=== PATIENT | male | born 1945 | race Caucasian/White ===

== ENCOUNTER 2019-03-24 07:34 | Outpatient (RCR) | payer MEDICARE, OTHER, SELFPAY | END 2019-04-22 00:01 | LOC: GILAB 07:34 | PROVIDERS: Family Provider Family Medicine; Visit Provider Internal Medicine | DX: Z95.811 Presence of heart assist device (principal); Z79.01 Long term (current) use of anticoagulants; I50.42 Chronic combined systolic (congestive) and diastolic (congestive) heart failure; T82.7XXD Infection and inflammatory reaction due to other cardiac and vascular devices, implants and grafts, subsequent encounter; K74.60 Unspecified cirrhosis of liver; Z87.19 Personal history of other diseases of the digestive system; D62 Acute posthemorrhagic anemia; N18.4 Chronic kidney disease, stage 4 (severe) | CPT/HCPCS: 36415 ×3; 80053 ×3; 80069; 82570; 83615 ×3; 84156; 85025 ×3; G0463 ×3 ==

== ENCOUNTER 2019-04-21 21:41 | Emergency (ER) | payer MEDICARE, OTHER, SELFPAY | END 2019-04-21 23:20 | disposition home or self-care (01) | PROVIDERS: Emergency Provider Emergency Medicine; Family Provider Family Medicine; Visit Provider Emergency Medicine | DX: K92.2 Gastrointestinal hemorrhage, unspecified (principal); I11.0 Hypertensive heart disease with heart failure; I50.9 Heart failure, unspecified; I25.2 Old myocardial infarction; E11.9 Type 2 diabetes mellitus without complications; E78.5 Hyperlipidemia, unspecified; Z86.73 Personal history of transient ischemic attack (TIA), and cerebral infarction without residual deficits; Z98.61 Coronary angioplasty status; Z95.0 Presence of cardiac pacemaker; Z88.5 Allergy status to narcotic agent | CPT/HCPCS: 36415; 80053; 85025; 85610; 99283 ==

== ENCOUNTER 2019-04-22 08:54 | Emergency (ER) | payer MEDICARE, OTHER, SELFPAY | END 2019-04-22 15:50 | disposition short-term general hospital (02) | PROVIDERS: Family Provider Family Medicine | DX: K92.2 Gastrointestinal hemorrhage, unspecified (principal); D64.89 Other specified anemias; N28.9 Disorder of kidney and ureter, unspecified; I11.0 Hypertensive heart disease with heart failure; I50.9 Heart failure, unspecified; I25.10 Atherosclerotic heart disease of native coronary artery without angina pectoris; I25.2 Old myocardial infarction; E11.9 Type 2 diabetes mellitus without complications; E78.5 Hyperlipidemia, unspecified; Z86.73 Personal history of transient ischemic attack (TIA), and cerebral infarction without residual deficits; Z98.61 Coronary angioplasty status; Z95.0 Presence of cardiac pacemaker; Z87.891 Personal history of nicotine dependence; Z79.4 Long term (current) use of insulin; Z88.5 Allergy status to narcotic agent; I48.91 Unspecified atrial fibrillation; E03.9 Hypothyroidism, unspecified ==

== ENCOUNTER → 2019-04-22 | Outpatient (CLI) | payer SELFPAY | PROVIDERS: Family Provider Family Medicine; Visit Provider Internal Medicine | DX: D64.9 Anemia, unspecified (principal); Z95.811 Presence of heart assist device | CPT/HCPCS: 36415 ==

== ENCOUNTER 2019-05-05 07:39 | Outpatient (CLI) | payer MEDICARE, OTHER, SELFPAY ==
[2019-05-05 08:22] LABS: Hematocrit 34.5 % (42.0-52.0); Hemoglobin 10.8 g/dL (11.7-16.6); Mean Corpuscular HGB Conc 31.3 g/dL (30.0-36.0); Mean Corpuscular Volume 105.5 fL (80-94); Mean Platelet Volume 9.2 fL (7.4-10.4); Platelet Count 142 10^3/cmm (130-400); Red Blood Count 3.27 10^6/uL (4.1-5.3); Red Cell Distribution Width 19.7 % (12.1-15.1); White Blood Count 5.6 10^3/uL (4.0-10.0)
[2019-05-05 08:54] LABS: Anion Gap 18.8 (5-19); Blood Urea Nitrogen 70 mg/dL (8-23); Calcium 9.5 mg/Dl (8.8-10.2); Carbon Dioxide 22 mmol/L (22-29); Chloride 96 mmol/L (98-107); Glucose 169 mg/dL (74-106); Potassium 4.8 mmol/L (3.5-5.1); Sodium 132 mmol/L (136-145)
[2019-05-05 08:56] LABS: INR 1.12 (0.8-1.2)
== END 2019-05-05 07:40 | disposition home or self-care (01) ==
PROVIDERS: Family Provider Family Medicine; PCP Family Medicine; Visit Provider Internal Medicine
DX: D62 Acute posthemorrhagic anemia (principal); N18.4 Chronic kidney disease, stage 4 (severe); Z95.811 Presence of heart assist device
CPT/HCPCS: 36415; 80048; 85027; 85610

== ENCOUNTER 2019-05-19 08:30 | Outpatient (RCR) | payer MEDICARE, OTHER, SELFPAY ==
[2019-04-30 15:58] LABS: Basophils % 0.3 %; Eosinophils # 0.1 10^3/uL (0.0-0.8); Hematocrit 29.7 % (42.0-52.0); Hemoglobin 9.5 g/dL (11.7-16.6); Lymphocytes # 0.8 10^3/uL (0.8-4.8); Lymphocytes % 12.9 %; Mean Corpuscular Hemoglobin 31.6 pg (28.0-34.0); Mean Corpuscular Volume 98.7 fL (80-94); Mean Platelet Volume 9.3 fL (7.4-10.4); Monocytes # 0.4 10^3/uL (0.2-0.9); Monocytes % 7.4 %; Neutrophils # 4.5 10^3/uL (1.8-7.7); Neutrophils % 76.9 %; Nucleated Red Blood Cells % 0.5 %; Platelet Count 117 10^3/cmm (130-400); Red Blood Count 3.01 10^6/uL (4.1-5.3); Red Cell Distribution Width 19.9 % (12.1-15.1); White Blood Count 5.9 10^3/uL (4.0-10.0)
[2019-04-30 16:14] LABS: Alanine Aminotransferase 22 U/L (0-41); Albumin Level 4.2 g/dL (3.5-5.2); Alkaline Phosphatase 108 IU/L (40-130); Aspartate Amino Transferase 34 U/L (0-40); Blood Urea Nitrogen 78 mg/dL (8-23); Calcium 8.8 mg/Dl (8.8-10.2); Carbon Dioxide 22 mmol/L (22-29); Chloride 92 mmol/L (98-107); Ferritin 165 ng/mL (30-400); Globulin 2.3 g/dL (1.3-4.6); Glucose 261 mg/dL (74-106); Iron 113 ug/dL (59-158); Percent Saturation 31.9 % (20-50); Sodium 130 mmol/L (136-145); Total Bilirubin 0.6 mg/dL (0.15-1.2); Total Iron Binding Capacity 354 mg/dL; Total Protein 6.5 g/dL (6.6-8.7); Unsaturated Iron Binding 241 ug/dL (112-347)
[2019-05-01 00:09] LABS: INR 1.11 (0.8-1.2)
--- NOTE | 2019-05-05 10:44 | ONC FU_ITS ---
Dr. Henriquez Patient Follow-Up Note Patient: Marvel Haddad Unit #: [id number]: 1945 Dicatated By: Nik Henriquez M.D.Date of Visit:Apr 30, 2019 Onc Med Follow-up/Prog Note Chief Complaint: Anemia in association with GI blood loss. History of Present Illness: This is a 73 year-old man who was had recurrent episodes of anemia in association with GI bleeding. He is referred because of suspected acquired von Willebrand's disease. He has multiple medical illnesses, the most significant being coronary artery disease with ischemic cardiomyopathy. He has congestive heart failure and he has chronic atrial fibrillation. He underwent placement of a left ventricular assistance device in October 2013. The procedure was complicated by postoperative infection and subsequently by seizures and stroke, but he ultimately recovered, and his overall cardiac status has basically remained stable. His clinical course, though, has been complicated by recurrent episodes of GI bleeding. He has required transfusion on multiple occasions. This year alone he was transfused twice during the month of June, on again the 15 of November. On 11/30/2018 he was admitted to the hospital with bright red and dark rectal bleeding. His initial CBC showed hemoglobin 7.6 g with white blood cell count 5500 and platelet count 131,000. The red cell indices were slightly macrocytic. The following morning the hemoglobin was down to 7.4 g and the platelet count had decreased to 99,000. He was transfused a total of 4 units of PRBC. He was discharged with a hemoglobin of 8.9 g. His coagulation profile showed slightly prolonged pro time at 16.3 seconds with PTT in the upper normal range at 35.70 seconds. During subsequent follow-up there was gradual improvement in the anemia with his repeat CBC on 12/30/2018 showing hemoglobin up to 11.3 g with white blood cell count 5500 and platelet count 159,000. Von Willebrand disease screening studies were drawn during the hospitalization and they were normal with a factor VIII activity of 157%, von Willebrand factor antigen 243%, and ristocetin cofactor 133%. His serum iron studies on 01/13/2019 showed normal transferrin saturation at 23.8%. He then continued to have blood counts monitored every 2 weeks, and up until 04/07/2019 his hemoglobin had remained adequate and the range of 11-12 g. However, as of 04/21/2019 he had developed recurrence of GI bleeding. His hemoglobin at that time was down just slightly at 10.4 g, but it then further declined to 7.7 g, at which point he was admitted to [facility]. As his previous evaluations there showed no specific source for the bleeding, he was managed conservatively just given multiple transfusions until the bleeding stopped. He was discharged yesterday. He is seen for a scheduled visit. He still feels weak following his hospitalization, and he has very limited activity. His ECOG score is 3. His appetite has been okay. He has no fever or night sweats. He has shortness of breath with activity, and he occasionally wakes up at night short of breath, severe enough that he has to get up. He says he coughs up mucus in the mornings. He occasionally has discomfort in his chest. He continues to have nausea at times. He currently is not complaining of acid reflux. His bowels initially were dark and tarry. They had then become red colored, but they're now back to being greenish. He has no complaints. He does report having soreness in his joints, and he also has some pain in his neck and back. He has been prone to having vertigo. He occasionally has numbness/tingling in his feet. Medications: Allopurinol 1 Tablet (of 150 mg) Oral daily, Amoxicillin 1 Tablet (of 500 mg) Oral b.i.d., Bumetanide 4 Tablet (of 2 mg) Oral b.i.d., Cholecalciferol 2 Tablet (of 1000 Units) Capsule Oral daily, Crestor 1 Tablet (of 10 mg) Oral daily, Docusate Sodium 1 Capsule (of 100 mg) Oral daily, Ferrous Gluconate 1 Tablet (of 324 (37.5 fe) mg) Oral b.i.d., Folic Acid 2 Tablet (of 1 mg) Oral daily, Isosorbide Mononitrate ER 1 Tablet (of 60 mg) Tablet SR 24 HR Oral daily, Isosorbide Mononitrate ER 1 Tablet (of 30 mg) Tablet SR 24 HR Oral daily, Lantus (100 Units/mL) Subcutaneous Take as Directed, levETIRAcetam 1 Tablet (of 500 mg) Oral b.i.d., Levothyroxine Sodium 1 Tablet (of 112 mcg) Oral daily, Magnesium 2 Tablet (of 400 mg) Oral b.i.d., Metoprolol Succinate ER 1 Tablet (of 25 mg) Tablet SR 24 HR Oral daily, MiraLax Pack Oral b.i.d., Nitrostat 1 Tablet (of 0.4 mg) Tablet, sublingual Sublingual PRN, NovoLOG (100 Units/mL) Subcutaneous Take as Directed, Potassium Chloride ER 1 Tablet (of 20 meq) Tablet, controlled release Oral daily PRN, Spironolactone 1 Tablet (of 50 mg) Oral daily, Sulfamethoxazole-Trimethoprim 1 Tablet (of 800-160 mg) Oral daily Allergies: clindamycin, Cyclobenzaprine HCl, dobutamine, Gabapentin, Gemfibrozil, HYDROcodone, morphine , niaspan, predniSONE, protonix, tricor, and zeroxolyn. Review of Systems: Constitutional - He is feeling weak, and his activity is very limited. Appetite is OK. His weight appears stable. No fever or night sweats. ECOG score is 3, ENMT - No sinus congestion/drainage. No mouth sores. No sore throat or difficulty swallowing, Hematologic/Lymphatic - He bruises easily. He has nose bleeds, Respiratory - He has shortness of breath with activity. He occasionally wakes up at night short of breath, severe enough that he has to get up. No cough. No pleuritic pain or hemoptysis. He is on Bipap at night, Cardiovascular - He occasionally has discomfort in his chest. No palpitations, Gastrointestinal - He has occasional nausea. No heartburn or acid reflux. He has constipationcome but his bowels lately have been pretty good. With his recent bleeding episode his stool initially was dark and tarry, but it then became reddish. His stools now are greenish colored, Genitourinary (M) - No dysuria or hematuria. He has urinary frequency and nocturia. No urgency or incontinence, Musculoskeletal - He has soreness in his joints. He also has some pain in his neck and in his lower back, Integumentary - No skin complications, Neurologic - No headache. He has vertigo. He has occasional numbness and tingling in his feet, Psychiatric - No anxiety or depression. No insomnia. Vital Signs: Performed on Apr 30, 2019 15:58 Height - 67.00 in Weight - 206.4 lbs BSA - 2.05 sq.m BMI - 32.33 (HIGH) Temperature - 96.5 F (LOW) Pulse - 88 /min Respiration - 22 /min BP - 99/61 mm(hg) O2 Sat - 93 % (LOW) Pain - 0 Physical Examination: Constitutional - He appears generally weak, Eyes - Sclerae nonicteric. Conjunctivae clear, ENMT - No lesions noted in the oral cavity, Hematologic/Lymphatic - No cervical, clavicular, or axillary adenopathy, Respiratory - Lungs sound clear with good air movement bilaterally, Cardiovascular - Heart rhythm is irregular. There is extraneous noise associated with the left ventricular assistance device. He also appears to have a diastolic murmur, Abdomen - Distended. Liver and spleen are not enlarged. There is no abdominal mass or ascites noted and there is no inguinal adenopathy, Extremities - Slight edema. There is extensive purpura on both arms, Neurologic - No focal neurologic deficits noted. Lab/Imaging: Test performed on Apr 30, 2019 14:39 Ferritin 165 ng/mL % Iron Saturation 31.9 % Glucose 261 mg/dL BUN 78 mg/dL Iron, Total 113 mcg/dL Creatinine 3.3 mg/dL TIBC 354 mcg/dL Cr Clearance (Est) 26.40 mL/min Sodium 130 mmol/L Potassium 5.0 mmol/L Chloride 92 mmol/L CO2 22 mmol/L Calcium 8.8 mg/dL Protein, Total 6.5 g/dL Albumin 4.2 g/dL Globulin 2.3 g/dL Bilirubin, Total 0.6 mg/dL Alkaline Phosphatase 108 IU/L AST (SGOT) 34 IU/L ALT (SGPT) 22 IU/L WBC 5.9 10^9/L RBC 3.01 10^12/L HGB 9.5 g/dL HCT 29.7 % MCV 98.7 fl MCH 31.6 pg MCHC 32.0 g/dL RDW 19.9 % Platelet Count 117 10^9/L MPV 9.3 fL Neutrophils (Gran) 4.5 10^9/L Lymphocytes 0.8 10^9/L Monocytes 0.4 10^9/L Eosinophils 0.1 10^9/L Basophils 0.0 10^9/L Manual Lymphocytes 12.9 % Manual Monocytes 7.4 % Manual Eosinophils 1.0 % Manual Basophils 0.3 % NRBCs 0.0 /100 WBC Impression: 1. Patient with recurrent episodes of anemia in association with GI bleeding. He has required transfusion on multiple occasions. His laboratory studies had not shown any evidence for associated iron deficiency. 2. His history was suggestive of a bleeding diathesis, but there was no laboratory evidence of von Willebrand's disease or other coagulopathy. 3. He has ischemic cardiomyopathy and congestive heart failure, and he has a left ventricular assistance device in place. His other medical illnesses include: 4. Hypertension. 5. Dyslipidemia. 6. Type II diabetes with peripheral neuropathy. 7. Chronic kidney disease, stage IV. 8. Coronary artery disease with previous myocardial infarction. 9. Chronic atrial fibrillation. 10. GERD. 11. Hypothyroidism. 12. Gout. 13. History of stroke and seizures following placement of the left ventricular assistance device in October 2013. On 04/22/2019 he again required admission to the hospital for an episode of acute GI bleeding. He required multiple transfusions, but the bleeding resolved with conservative management. This is presumed to be due to angiodysplasia, though a specific source was not identified. Plan: He will continue to have blood counts monitored every 2 weeks and he will be transfused as needed. I am really not aware of any other treatment options which may be available, but I will look into it. Signed By: Nik Henriquez M.D. <<Signature on File>>
[2019-05-19 09:00] LABS: Basophils % 0.3 %; Eosinophils # 0.1 10^3/uL (0.0-0.8); Eosinophils % 1.5 %; Hemoglobin 10.1 g/dL (11.7-16.6); Lymphocytes # 0.7 10^3/uL (0.8-4.8); Lymphocytes % 16.7 %; Mean Corpuscular HGB Conc 31.6 g/dL (30.0-36.0); Mean Corpuscular Hemoglobin 32.5 pg (28.0-34.0); Mean Corpuscular Volume 102.9 fL (80-94); Mean Platelet Volume 8.4 fL (7.4-10.4); Monocytes # 0.2 10^3/uL (0.2-0.9); Monocytes % 6.2 %; Neutrophils # 2.9 10^3/uL (1.8-7.7); Neutrophils % 74.5 %; Nucleated Red Blood Cells % 0 %; Platelet Count 117 10^3/cmm (130-400); Red Blood Count 3.11 10^6/uL (4.1-5.3); Red Cell Distribution Width 18.1 % (12.1-15.1); White Blood Count 3.9 10^3/uL (4.0-10.0)
[2019-05-19 09:08] LABS: INR 1.13 (0.8-1.2)
[2019-05-19 09:15] LABS: Alanine Aminotransferase 18 U/L (0-41); Albumin Level 4.5 g/dL (3.5-5.2); Alkaline Phosphatase 96 IU/L (40-130); Aspartate Amino Transferase 22 U/L (0-40); Blood Urea Nitrogen 81 mg/dL (8-23); Calcium 9.5 mg/dL (8.5-10.5); Carbon Dioxide 26 mmol/L (22-29); Chloride 94 mmol/L (98-107); Globulin 3.1 g/dL (1.3-4.6); Glucose 169 mg/dL (74-106); Lactate Dehydrogenase 238 U/L (135-225); Sodium 136 mmol/L (136-145); Total Bilirubin 0.5 mg/dL (0.15-1.2); Total Protein 7.6 g/dL (6.6-8.7)
== END 2019-05-23 23:59 | disposition home or self-care (01) ==
LOC: ONCMED 08:30
PROVIDERS: Internal Medicine Medical Oncology; Family Provider Family Medicine; PCP Family Medicine; Visit Provider Internal Medicine
DX: D62 Acute posthemorrhagic anemia (principal); I25.10 Atherosclerotic heart disease of native coronary artery without angina pectoris; I25.5 Ischemic cardiomyopathy; I50.9 Heart failure, unspecified; I48.20 Chronic atrial fibrillation, unspecified; E78.5 Hyperlipidemia, unspecified; E11.42 Type 2 diabetes mellitus with diabetic polyneuropathy; E11.22 Type 2 diabetes mellitus with diabetic chronic kidney disease; I13.0 Hypertensive heart and chronic kidney disease with heart failure and stage 1 through stage 4 chronic kidney disease, or unspecified chronic kidney disease; N18.4 Chronic kidney disease, stage 4 (severe); I25.2 Old myocardial infarction; K21.9 Gastro-esophageal reflux disease without esophagitis; E03.9 Hypothyroidism, unspecified; M10.9 Gout, unspecified; Z79.4 Long term (current) use of insulin; Z86.73 Personal history of transient ischemic attack (TIA), and cerebral infarction without residual deficits
CPT/HCPCS: 80053; 82728; 83540; 83550; 83615; 85025; 85610; 85730; 99214

== ENCOUNTER 2019-05-30 09:25 | Outpatient (CLI) | payer MEDICARE, OTHER, SELFPAY ==
[2019-05-30 09:58] LABS: Basophils % 0.2 %; Eosinophils % 0.8 %; Hematocrit 29.2 % (42.0-52.0); Hemoglobin 9.4 g/dL (11.7-16.6); Lymphocytes # 0.6 10^3/uL (0.8-4.8); Lymphocytes % 11.1 %; Mean Corpuscular HGB Conc 32.2 g/dL (30.0-36.0); Mean Corpuscular Hemoglobin 33.1 pg (28.0-34.0); Mean Corpuscular Volume 102.8 fL (80-94); Monocytes # 0.3 10^3/uL (0.2-0.9); Monocytes % 6.2 %; Neutrophils # 4.1 10^3/uL (1.8-7.7); Neutrophils % 79.9 %; Nucleated Red Blood Cells % 0.6 %; Platelet Count 112 10^3/cmm (130-400); Red Blood Count 2.84 10^6/uL (4.1-5.3); Red Cell Distribution Width 17.5 % (12.1-15.1); White Blood Count 5.1 10^3/uL (4.0-10.0)
[2019-05-30 10:08] LABS: INR 1.23 (0.8-1.2)
[2019-05-30 10:15] LABS: Alanine Aminotransferase 18 U/L (0-41); Albumin Level 3.7 g/dL (3.5-5.2); Alkaline Phosphatase 113 IU/L (40-130); Anion Gap 21.2 (5-19); Aspartate Amino Transferase 24 U/L (0-40); Calcium 8.1 mg/dL (8.5-10.5); Carbon Dioxide 17 mmol/L (22-29); Chloride 93 mmol/L (98-107); Globulin 2.6 g/dL (1.3-4.6); Glucose 266 mg/dL (65-115); Lactate Dehydrogenase 231 U/L (135-225); Potassium 4.2 mmol/L (3.5-5.1); Sodium 127 mmol/L (136-145); Total Bilirubin 0.5 mg/dL (0.15-1.2); Total Protein 6.3 g/dL (6.6-8.7)
[2019-05-30 10:38] LABS: Blood Urea Nitrogen 94 mg/dL (8-23)
== END 2019-05-30 09:26 | disposition home or self-care (01) ==
LOC: LAB 09:31
PROVIDERS: Family Provider Family Medicine; PCP Family Medicine; Visit Provider Internal Medicine
DX: Z95.811 Presence of heart assist device (principal); I25.5 Ischemic cardiomyopathy; I50.22 Chronic systolic (congestive) heart failure; I48.0 Paroxysmal atrial fibrillation
CPT/HCPCS: 36415; 80053; 83615; 85025; 85610

== ENCOUNTER 2019-06-02 08:00 | Outpatient (CLI) | payer MEDICARE, OTHER, SELFPAY ==
[2019-06-02 09:39] LABS: Basophils % 0.4 %; Eosinophils # 0.1 10^3/uL (0.0-0.8); Eosinophils % 1.3 %; Hematocrit 26.8 % (42.0-52.0); Hemoglobin 8.5 g/dL (11.7-16.6); Lymphocytes # 0.8 10^3/uL (0.8-4.8); Lymphocytes % 13.6 %; Mean Corpuscular HGB Conc 31.7 g/dL (30.0-36.0); Mean Corpuscular Hemoglobin 34.6 pg (28.0-34.0); Mean Corpuscular Volume 108.9 fL (80-94); Monocytes # 0.4 10^3/uL (0.2-0.9); Monocytes % 6.5 %; Neutrophils # 4.1 10^3/uL (1.8-7.7); Neutrophils % 73.5 %; Nucleated Red Blood Cells # 0.1 /100WBC; Nucleated Red Blood Cells % 1.3 %; Platelet Count 137 10^3/cmm (130-400); Red Blood Count 2.46 10^6/uL (4.1-5.3); Red Cell Distribution Width 17.9 % (12.1-15.1); White Blood Count 5.5 10^3/uL (4.0-10.0)
[2019-06-02 10:10] LABS: Alanine Aminotransferase 22 U/L (0-41); Albumin Level 3.9 g/dL (3.5-5.2); Alkaline Phosphatase 105 IU/L (40-130); Anion Gap 23.2 (5-19); Aspartate Amino Transferase 27 U/L (0-40); Calcium 8.7 mg/dL (8.5-10.5); Carbon Dioxide 19 mmol/L (22-29); Chloride 93 mmol/L (98-107); Globulin 2.4 g/dL (1.3-4.6); Glucose 221 mg/dL (65-115); Lactate Dehydrogenase 228 U/L (135-225); Potassium 5.2 mmol/L (3.5-5.1); Sodium 130 mmol/L (136-145); Total Bilirubin 0.4 mg/dL (0.15-1.2); Total Protein 6.3 g/dL (6.6-8.7)
[2019-06-02 11:01] LABS: Blood Urea Nitrogen 85 mg/dL (8-23)
[2019-06-04] VITALS (7 sets, daily range): BP systolic 0; BP diastolic 0; PULSE 68–70; RESP 18; TEMP 36.3–37; O2SAT 96–100
--- NOTE | 2019-06-04 16:49 | PC.NURSE ---
Unable to get B/P due to the maint mechanic pump and perfusion to extremities. Patient admits to not able to get B/P unless you have a doppler. I did try manual B/P,automatic B/P monitors. Patients denies need for the tylenol ,benadryl and lasix in between units since he doesn't use it for several months past and has had numerous infusions.
--- NOTE | 2019-06-04 17:09 | PC.NURSE ---
Patient did no have a obtainable B/P due to his mechanical heart device with poor peripheral perfusion. Manual B/p cuff and automatic machine and monitor.
== END 2019-06-02 09:00 | disposition home or self-care (01) ==
LOC: LAB 12-09 12:40
PROVIDERS: PCP Family Medicine; Visit Provider Internal Medicine
DX: Z95.811 Presence of heart assist device (principal); I25.5 Ischemic cardiomyopathy; I50.22 Chronic systolic (congestive) heart failure; I48.0 Paroxysmal atrial fibrillation
CPT/HCPCS: 80053; 83615; 85025; 85610; 86850; 86900

== ENCOUNTER 2019-06-16 08:19 | Outpatient (RCR) | payer MEDICARE, OTHER, SELFPAY ==
[2019-06-04 11:39] LABS: Basophils % 0.3 %; Eosinophils # 0.1 10^3/uL (0.0-0.8); Eosinophils % 0.8 %; Hematocrit 26.5 % (42.0-52.0); Hemoglobin 8.4 g/dL (11.7-16.6); Lymphocytes # 0.9 10^3/uL (0.8-4.8); Lymphocytes % 14.6 %; Mean Corpuscular HGB Conc 31.7 g/dL (30.0-36.0); Mean Corpuscular Hemoglobin 34.4 pg (28.0-34.0); Mean Corpuscular Volume 108.6 fL (80-94); Monocytes # 0.5 10^3/uL (0.2-0.9); Neutrophils # 4.7 10^3/uL (1.8-7.7); Neutrophils % 73.8 %; Nucleated Red Blood Cells # 0.1 /100WBC; Nucleated Red Blood Cells % 1.3 %; Platelet Count 145 10^3/cmm (130-400); Red Blood Count 2.44 10^6/uL (4.1-5.3); Red Cell Distribution Width 18.2 % (12.1-15.1); White Blood Count 6.4 10^3/uL (4.0-10.0)
[2019-06-04] MEDS: sodium chloride 0.9% 250 ML 999 ML IV (12:10)
[2019-06-09 10:18] LABS: Basophils % 0.2 %; Eosinophils # 0.1 10^3/uL (0.0-0.8); Eosinophils % 1.6 %; Hematocrit 31.9 % (42.0-52.0); Hemoglobin 10.1 g/dL (11.7-16.6); Lymphocytes # 0.7 10^3/uL (0.8-4.8); Lymphocytes % 12.3 %; Mean Corpuscular HGB Conc 31.7 g/dL (30.0-36.0); Mean Corpuscular Hemoglobin 33.6 pg (28.0-34.0); Mean Platelet Volume 9.2 fL (7.4-10.4); Monocytes # 0.4 10^3/uL (0.2-0.9); Neutrophils # 4.4 10^3/uL (1.8-7.7); Neutrophils % 77.1 %; Nucleated Red Blood Cells % 0 %; Platelet Count 108 10^3/cmm (130-400); Red Blood Count 3.01 10^6/uL (4.1-5.3); Red Cell Distribution Width 19.5 % (12.1-15.1); White Blood Count 5.7 10^3/uL (4.0-10.0)
[2019-06-09 10:24] LABS: INR 1.13 (0.8-1.2)
[2019-06-09 10:29] LABS: Alanine Aminotransferase 18 U/L (0-41); Albumin Level 4.1 g/dL (3.5-5.2); Alkaline Phosphatase 98 IU/L (40-130); Anion Gap 19.1 (5-19); Aspartate Amino Transferase 21 U/L (0-40); Calcium 8.9 mg/dL (8.5-10.5); Carbon Dioxide 23 mmol/L (22-29); Chloride 95 mmol/L (98-107); Globulin 2.8 g/dL (1.3-4.6); Glucose 163 mg/dL (65-115); Lactate Dehydrogenase 238 U/L (135-225); Potassium 4.1 mmol/L (3.5-5.1); Sodium 133 mmol/L (136-145); Total Bilirubin 0.3 mg/dL (0.15-1.2); Total Protein 6.9 g/dL (6.6-8.7)
[2019-06-09 10:34] LABS: Blood Urea Nitrogen 87 mg/dL (8-23)
[2019-06-16 09:03] LABS: Basophils % 0.2 %; Eosinophils # 0.1 10^3/uL (0.0-0.8); Eosinophils % 2.2 %; Hematocrit 33.1 % (42.0-52.0); Hemoglobin 10.4 g/dL (11.7-16.6); Lymphocytes # 0.6 10^3/uL (0.8-4.8); Lymphocytes % 14.2 %; Mean Corpuscular HGB Conc 31.4 g/dL (30.0-36.0); Mean Corpuscular Hemoglobin 32.4 pg (28.0-34.0); Mean Corpuscular Volume 103.1 fL (80-94); Mean Platelet Volume 9.4 fL (7.4-10.4); Monocytes # 0.4 10^3/uL (0.2-0.9); Monocytes % 8.4 %; Neutrophils # 3.3 10^3/uL (1.8-7.7); Neutrophils % 74.3 %; Nucleated Red Blood Cells % 0 %; Platelet Count 101 10^3/cmm (130-400); Red Blood Count 3.21 10^6/uL (4.1-5.3); Red Cell Distribution Width 17.7 % (12.1-15.1); White Blood Count 4.5 10^3/uL (4.0-10.0)
[2019-06-16 09:23] LABS: INR 1.21 (0.8-1.2)
[2019-06-16 09:35] LABS: Alanine Aminotransferase 14 U/L (0-41); Albumin Level 4.3 g/dL (3.5-5.2); Alkaline Phosphatase 100 IU/L (40-130); Anion Gap 20.4 (5-19); Aspartate Amino Transferase 21 U/L (0-40); Calcium 9.8 mg/dL (8.5-10.5); Carbon Dioxide 25 mmol/L (22-29); Chloride 93 mmol/L (98-107); Globulin 2.9 g/dL (1.3-4.6); Glucose 184 mg/dL (65-115); Lactate Dehydrogenase 249 U/L (135-225); Potassium 4.4 mmol/L (3.5-5.1); Sodium 134 mmol/L (136-145); Total Bilirubin 0.4 mg/dL (0.15-1.2); Total Protein 7.2 g/dL (6.6-8.7)
[2019-06-16 09:48] LABS: Blood Urea Nitrogen 87 mg/dL (8-23)
== END 2019-06-21 23:59 | disposition home or self-care (01) ==
LOC: ONCMED 08:19
PROVIDERS: Internal Medicine Medical Oncology; Family Provider Family Medicine; PCP Family Medicine; Visit Provider Internal Medicine
DX: D62 Acute posthemorrhagic anemia (principal)
CPT/HCPCS: 80053; 83615; 85025; 85610; J7050; P9016

== ENCOUNTER 2019-06-30 08:46 | Outpatient (CLI) | payer MEDICARE, OTHER, SELFPAY ==
[2019-06-30 09:27] LABS: Basophils % 0.2 %; Eosinophils % 0.9 %; Hematocrit 36.1 % (42.0-52.0); Hemoglobin 11.3 g/dL (11.7-16.6); Lymphocytes # 0.6 10^3/uL (0.8-4.8); Lymphocytes % 14.2 %; Mean Corpuscular HGB Conc 31.3 g/dL (30.0-36.0); Mean Corpuscular Volume 105.6 fL (80-94); Mean Platelet Volume 9.1 fL (7.4-10.4); Monocytes # 0.3 10^3/uL (0.2-0.9); Monocytes % 6.3 %; Neutrophils # 3.3 10^3/uL (1.8-7.7); Neutrophils % 77.2 %; Nucleated Red Blood Cells % 0 %; Platelet Count 118 10^3/cmm (130-400); Red Blood Count 3.42 10^6/uL (4.1-5.3); Red Cell Distribution Width 16.5 % (12.1-15.1); White Blood Count 4.3 10^3/uL (4.0-10.0)
[2019-06-30 09:33] LABS: INR 1.14 (0.8-1.2)
[2019-06-30 09:37] LABS: Alanine Aminotransferase 14 U/L (0-41); Albumin Level 4.1 g/dL (3.5-5.2); Alkaline Phosphatase 86 IU/L (40-130); Anion Gap 20.4 (5-19); Aspartate Amino Transferase 24 U/L (0-40); Blood Urea Nitrogen 73 mg/dL (8-23); Calcium 9.3 mg/dL (8.5-10.5); Carbon Dioxide 23 mmol/L (22-29); Chloride 93 mmol/L (98-107); Globulin 3.5 g/dL (1.3-4.6); Glucose 257 mg/dL (65-115); Lactate Dehydrogenase 242 U/L (135-225); Osmolality Calculated 282 mOsm/kg (285-295); Potassium 4.4 mmol/L (3.5-5.1); Sodium 132 mmol/L (136-145); Total Bilirubin 0.5 mg/dL (0.15-1.2); Total Protein 7.6 g/dL (6.6-8.7)
== END 2019-06-30 08:47 | disposition home or self-care (01) ==
LOC: LAB 08:55
PROVIDERS: Family Provider Family Medicine; PCP Family Medicine; Visit Provider Internal Medicine
DX: Z95.811 Presence of heart assist device (principal); I25.5 Ischemic cardiomyopathy; I50.22 Chronic systolic (congestive) heart failure; I48.0 Paroxysmal atrial fibrillation; Z79.01 Long term (current) use of anticoagulants
CPT/HCPCS: 80053; 83615; 85025; 85610

== ENCOUNTER 2019-07-14 11:19 | Outpatient (CLI) | payer MEDICARE, OTHER, SELFPAY ==
[2019-07-14 11:39] LABS: Basophils % 0.4 %; Eosinophils # 0.1 10^3/uL (0.0-0.8); Eosinophils % 1.5 %; Hematocrit 34.5 % (42.0-52.0); Hemoglobin 11.1 g/dL (11.7-16.6); Lymphocytes # 0.8 10^3/uL (0.8-4.8); Lymphocytes % 14.7 %; Mean Corpuscular HGB Conc 32.2 g/dL (30.0-36.0); Mean Corpuscular Hemoglobin 33.3 pg (28.0-34.0); Mean Corpuscular Volume 103.6 fL (80-94); Monocytes # 0.3 10^3/uL (0.2-0.9); Monocytes % 6.2 %; Neutrophils % 76.3 %; Nucleated Red Blood Cells % 0 %; Platelet Count 106 10^3/cmm (130-400); Red Blood Count 3.33 10^6/uL (4.1-5.3); White Blood Count 5.3 10^3/uL (4.0-10.0)
[2019-07-14 11:51] LABS: INR 1.24 (0.8-1.2)
[2019-07-14 11:59] LABS: Alanine Aminotransferase 22 U/L (0-41); Albumin Level 4.3 g/dL (3.5-5.2); Alkaline Phosphatase 96 IU/L (40-130); Anion Gap 15.9 (5-19); Aspartate Amino Transferase 25 U/L (0-40); Calcium 8.9 mg/dL (8.5-10.5); Carbon Dioxide 27 mmol/L (22-29); Chloride 93 mmol/L (98-107); Globulin 3.2 g/dL (1.3-4.6); Glucose 297 mg/dL (65-115); Lactate Dehydrogenase 229 U/L (135-225); Osmolality Calculated 285 mOsm/kg (285-295); Potassium 3.9 mmol/L (3.5-5.1); Sodium 132 mmol/L (136-145); Total Bilirubin 0.4 mg/dL (0.15-1.2); Total Protein 7.5 g/dL (6.6-8.7)
[2019-07-14 12:06] LABS: Blood Urea Nitrogen 84 mg/dL (8-23)
== END 2019-07-14 11:20 | disposition home or self-care (01) ==
LOC: ONCMED 07-16 14:06
PROVIDERS: Family Provider Family Medicine; PCP Family Medicine; Visit Provider Internal Medicine
DX: D62 Acute posthemorrhagic anemia (principal)
CPT/HCPCS: 80053; 83615; 85025; 85610

== ENCOUNTER 2019-08-11 09:09 | Outpatient (RCR) | payer MEDICARE, OTHER, SELFPAY ==
[2019-07-28 09:14] LABS: Basophils % 0.4 %; Eosinophils # 0.1 10^3/uL (0.0-0.8); Eosinophils % 1.1 %; Hemoglobin 11.2 g/dL (11.7-16.6); Lymphocytes # 0.8 10^3/uL (0.8-4.8); Mean Corpuscular Hemoglobin 32.5 pg (28.0-34.0); Mean Corpuscular Volume 101.4 fL (80-94); Monocytes # 0.4 10^3/uL (0.2-0.9); Monocytes % 7.1 %; Neutrophils # 4.1 10^3/uL (1.8-7.7); Neutrophils % 76.1 %; Nucleated Red Blood Cells % 0.4 %; Platelet Count 93 10^3/cmm (130-400); Red Blood Count 3.45 10^6/uL (4.1-5.3); Red Cell Distribution Width 15.4 % (12.1-15.1); White Blood Count 5.4 10^3/uL (4.0-10.0)
[2019-07-28 09:17] LABS: INR 1.17 (0.8-1.2)
[2019-07-28 09:29] LABS: Alanine Aminotransferase 11 U/L (0-41); Albumin Level 4.3 g/dL (3.5-5.2); Alkaline Phosphatase 87 IU/L (40-130); Anion Gap 17.2 (5-19); Aspartate Amino Transferase 21 U/L (0-40); Blood Urea Nitrogen 80 mg/dL (8-23); Calcium 9.4 mg/dL (8.5-10.5); Carbon Dioxide 26 mmol/L (22-29); Chloride 93 mmol/L (98-107); Globulin 3.1 g/dL (1.3-4.6); Glucose 161 mg/dL (65-115); Lactate Dehydrogenase 203 U/L (135-225); Osmolality Calculated 277 mOsm/kg (285-295); Potassium 4.2 mmol/L (3.5-5.1); Sodium 132 mmol/L (136-145); Total Bilirubin 0.5 mg/dL (0.15-1.2); Total Protein 7.4 g/dL (6.6-8.7)
[2019-08-11 10:04] LABS: Basophils % 0.4 %; Eosinophils # 0.1 10^3/uL (0.0-0.8); Eosinophils % 2.1 %; Hematocrit 36.5 % (42.0-52.0); Hemoglobin 11.4 g/dL (11.7-16.6); Lymphocytes # 0.7 10^3/uL (0.8-4.8); Lymphocytes % 15.3 %; Mean Corpuscular HGB Conc 31.2 g/dL (30.0-36.0); Mean Corpuscular Hemoglobin 31.8 pg (28.0-34.0); Mean Platelet Volume 9.3 fL (7.4-10.4); Monocytes # 0.3 10^3/uL (0.2-0.9); Monocytes % 6.8 %; Neutrophils # 3.6 10^3/uL (1.8-7.7); Neutrophils % 74.4 %; Nucleated Red Blood Cells % 0 %; Platelet Count 117 10^3/cmm (130-400); Red Blood Count 3.58 10^6/uL (4.1-5.3); Red Cell Distribution Width 16.1 % (12.1-15.1); White Blood Count 4.9 10^3/uL (4.0-10.0)
[2019-08-11 10:19] LABS: INR 1.14 (0.8-1.2)
[2019-08-11 10:30] LABS: Alanine Aminotransferase 12 U/L (0-41); Albumin Level 4.4 g/dL (3.5-5.2); Alkaline Phosphatase 87 IU/L (40-130); Anion Gap 21.2 (5-19); Aspartate Amino Transferase 22 U/L (0-40); Blood Urea Nitrogen 62 mg/dL (8-23); Calcium 9.7 mg/dL (8.5-10.5); Carbon Dioxide 25 mmol/L (22-29); Chloride 93 mmol/L (98-107); Globulin 3.2 g/dL (1.3-4.6); Glucose 182 mg/dL (65-115); Lactate Dehydrogenase 231 U/L (135-225); Osmolality Calculated 284 mOsm/kg (285-295); Potassium 4.2 mmol/L (3.5-5.1); Sodium 135 mmol/L (136-145); Total Bilirubin 0.4 mg/dL (0.15-1.2); Total Protein 7.6 g/dL (6.6-8.7)
[2019-08-11 14:09] LABS: 25 Hydroxy Vitamin D 76 ng/mL (30-100)
[2019-08-11 16:00] LABS: Calcium 9.2 mg/dL (8.5-10.5)
== END 2019-08-21 23:59 | disposition home or self-care (01) ==
LOC: ONCMED 09:09
PROVIDERS: Internal Medicine Hematology & Oncology; Absent Provider Internal Medicine Nephrology; Family Provider Family Medicine; PCP Family Medicine; Visit Provider Internal Medicine
DX: D62 Acute posthemorrhagic anemia (principal); I25.10 Atherosclerotic heart disease of native coronary artery without angina pectoris; I25.5 Ischemic cardiomyopathy; E78.5 Hyperlipidemia, unspecified; I10 Essential (primary) hypertension; E03.9 Hypothyroidism, unspecified; E55.9 Vitamin D deficiency, unspecified
CPT/HCPCS: 36415; 80053; 82306; 82310; 83615; 83970; 85025; 85610

== ENCOUNTER 2019-09-01 09:03 | Outpatient (RCR) | payer MEDICARE, OTHER, SELFPAY ==
[2019-08-25 10:10] LABS: Basophils % 0.4 %; Eosinophils # 0.1 10^3/uL (0.0-0.8); Eosinophils % 1.2 %; Hematocrit 35.4 % (42.0-52.0); Hemoglobin 11.1 g/dL (11.7-16.6); Lymphocytes # 0.6 10^3/uL (0.8-4.8); Lymphocytes % 12.2 %; Mean Corpuscular HGB Conc 31.4 g/dL (30.0-36.0); Mean Corpuscular Hemoglobin 31.9 pg (28.0-34.0); Mean Corpuscular Volume 101.7 fL (80-94); Mean Platelet Volume 9.4 fL (7.4-10.4); Monocytes # 0.3 10^3/uL (0.2-0.9); Monocytes % 6.2 %; Neutrophils # 4.1 10^3/uL (1.8-7.7); Neutrophils % 78.6 %; Nucleated Red Blood Cells % 0 %; Platelet Count 112 10^3/cmm (130-400); Red Blood Count 3.48 10^6/uL (4.1-5.3); Red Cell Distribution Width 16.5 % (12.1-15.1); White Blood Count 5.2 10^3/uL (4.0-10.0)
[2019-08-25 10:14] LABS: INR 1.17 (0.8-1.2)
[2019-08-25 10:17] LABS: Alanine Aminotransferase 12 U/L (0-41); Albumin Level 4.5 g/dL (3.5-5.2); Alkaline Phosphatase 90 IU/L (40-130); Anion Gap 17.2 (5-19); Aspartate Amino Transferase 20 U/L (0-40); Calcium 9.4 mg/dL (8.5-10.5); Carbon Dioxide 27 mmol/L (22-29); Chloride 92 mmol/L (98-107); Globulin 3.4 g/dL (1.3-4.6); Glucose 127 mg/dL (65-115); Lactate Dehydrogenase 245 U/L (135-225); Osmolality Calculated 276 mOsm/kg (285-295); Potassium 4.2 mmol/L (3.5-5.1); Sodium 132 mmol/L (136-145); Total Bilirubin 0.5 mg/dL (0.15-1.2); Total Protein 7.9 g/dL (6.6-8.7)
[2019-08-25 10:36] LABS: Blood Urea Nitrogen 93 mg/dL (8-23)
[2019-09-01 09:47] LABS: Basophils % 0.2 %; Eosinophils # 0.1 10^3/uL (0.0-0.8); Eosinophils % 1.3 %; Hematocrit 35.1 % (42.0-52.0); Hemoglobin 10.9 g/dL (11.7-16.6); Lymphocytes # 0.6 10^3/uL (0.8-4.8); Lymphocytes % 11.3 %; Mean Corpuscular HGB Conc 31.1 g/dL (30.0-36.0); Mean Corpuscular Hemoglobin 31.5 pg (28.0-34.0); Mean Corpuscular Volume 101.4 fL (80-94); Mean Platelet Volume 8.7 fL (7.4-10.4); Monocytes # 0.4 10^3/uL (0.2-0.9); Monocytes % 7.4 %; Neutrophils # 4.2 10^3/uL (1.8-7.7); Neutrophils % 78.5 %; Nucleated Red Blood Cells % 0 %; Platelet Count 111 10^3/cmm (130-400); Red Blood Count 3.46 10^6/uL (4.1-5.3); Red Cell Distribution Width 16.3 % (12.1-15.1); White Blood Count 5.4 10^3/uL (4.0-10.0)
[2019-09-01 09:52] LABS: INR 1.16 (0.8-1.2)
[2019-09-01 10:13] LABS: Calcium 8.9 mg/dL (8.5-10.5)
[2019-09-01 10:17] LABS: 25 Hydroxy Vitamin D 72 ng/mL (30-100); Alanine Aminotransferase 12 U/L (0-41); Albumin Level 4.3 g/dL (3.5-5.2); Alkaline Phosphatase 107 IU/L (40-130); Anion Gap 19.2 (5-19); Aspartate Amino Transferase 21 U/L (0-40); Blood Urea Nitrogen 74 mg/dL (8-23); Calcium 9.5 mg/dL (8.5-10.5); Carbon Dioxide 27 mmol/L (22-29); Chloride 94 mmol/L (98-107); Globulin 3.5 g/dL (1.3-4.6); Glucose 131 mg/dL (65-115); Lactate Dehydrogenase 238 U/L (135-225); Osmolality Calculated 283 mOsm/kg (285-295); Phosphorus 4.9 mg/dL (2.5-4.5); Potassium 4.2 mmol/L (3.5-5.1); Sodium 136 mmol/L (136-145); Total Bilirubin 0.4 mg/dL (0.15-1.2); Total Protein 7.8 g/dL (6.6-8.7)
[2019-09-01 10:34] LABS: Parathyroid Hormone 140.7 pg/mL (15-65)
== END 2019-09-01 23:59 | disposition home or self-care (01) ==
LOC: ONCMED 09:03
PROVIDERS: Absent Provider Internal Medicine Nephrology; Family Provider Family Medicine; PCP Family Medicine; Visit Provider Internal Medicine
DX: D62 Acute posthemorrhagic anemia (principal); E78.5 Hyperlipidemia, unspecified; E03.9 Hypothyroidism, unspecified; E11.22 Type 2 diabetes mellitus with diabetic chronic kidney disease; E11.42 Type 2 diabetes mellitus with diabetic polyneuropathy; I12.9 Hypertensive chronic kidney disease with stage 1 through stage 4 chronic kidney disease, or unspecified chronic kidney disease; N18.4 Chronic kidney disease, stage 4 (severe); Z86.73 Personal history of transient ischemic attack (TIA), and cerebral infarction without residual deficits
CPT/HCPCS: 36415; 80053; 80069; 82306; 82310; 83615; 83970; 85025; 85610

== ENCOUNTER 2019-09-16 08:47 | Outpatient (CLI) | payer MEDICARE, OTHER, SELFPAY ==
[2019-09-16 09:22] LABS: Basophils % 0.6 %; Eosinophils # 0.1 10^3/uL (0.0-0.8); Eosinophils % 2.1 %; Hematocrit 35.1 % (42.0-52.0); Hemoglobin 11.1 g/dL (11.7-16.6); Lymphocytes # 0.8 10^3/uL (0.8-4.8); Lymphocytes % 14.5 %; Mean Corpuscular HGB Conc 31.6 g/dL (30.0-36.0); Mean Corpuscular Hemoglobin 32.9 pg (28.0-34.0); Mean Corpuscular Volume 104.2 fL (80-94); Mean Platelet Volume 8.7 fL (7.4-10.4); Monocytes # 0.3 10^3/uL (0.2-0.9); Monocytes % 6.6 %; Neutrophils # 3.9 10^3/uL (1.8-7.7); Nucleated Red Blood Cells % 0 %; Platelet Count 112 10^3/cmm (130-400); Red Blood Count 3.37 10^6/uL (4.1-5.3); Red Cell Distribution Width 17.2 % (12.1-15.1); White Blood Count 5.2 10^3/uL (4.0-10.0)
[2019-09-16 09:37] LABS: INR 1.17 (0.8-1.2)
[2019-09-16 09:48] LABS: Alanine Aminotransferase 13 U/L (0-41); Albumin Level 4.2 g/dL (3.5-5.2); Alkaline Phosphatase 87 IU/L (40-130); Anion Gap 18.3 (5-19); Aspartate Amino Transferase 23 U/L (0-40); Calcium 9.8 mg/dL (8.5-10.5); Carbon Dioxide 26 mmol/L (22-29); Chloride 92 mmol/L (98-107); Globulin 3.3 g/dL (1.3-4.6); Glucose 123 mg/dL (65-115); Lactate Dehydrogenase 233 U/L (135-225); Osmolality Calculated 276 mOsm/kg (285-295); Potassium 4.3 mmol/L (3.5-5.1); Sodium 132 mmol/L (136-145); Total Bilirubin 0.4 mg/dL (0.15-1.2); Total Protein 7.5 g/dL (6.6-8.7)
[2019-09-16 10:09] LABS: Blood Urea Nitrogen 88 mg/dL (8-23)
== END 2019-09-16 08:48 | disposition home or self-care (01) ==
LOC: LAB 08:52
PROVIDERS: PCP Family Medicine; Visit Provider Internal Medicine
DX: Z95.811 Presence of heart assist device (principal)
CPT/HCPCS: 80053; 83615; 85025; 85610

== ENCOUNTER 2019-09-29 08:09 | Outpatient (CLI) | payer MEDICARE, OTHER, SELFPAY ==
[2019-09-29 08:53] LABS: Basophils % 0.4 %; Eosinophils # 0.1 10^3/uL (0.0-0.8); Eosinophils % 1.7 %; Hematocrit 33.8 % (42.0-52.0); Hemoglobin 10.6 g/dL (11.7-16.6); Lymphocytes # 0.6 10^3/uL (0.8-4.8); Lymphocytes % 13.3 %; Mean Corpuscular HGB Conc 31.4 g/dL (30.0-36.0); Mean Corpuscular Hemoglobin 32.9 pg (28.0-34.0); Mean Platelet Volume 9.4 fL (7.4-10.4); Monocytes # 0.3 10^3/uL (0.2-0.9); Monocytes % 5.9 %; Neutrophils # 3.7 10^3/uL (1.8-7.7); Neutrophils % 77.9 %; Nucleated Red Blood Cells % 0 %; Platelet Count 99 10^3/cmm (130-400); Red Blood Count 3.22 10^6/uL (4.1-5.3); Red Cell Distribution Width 16.8 % (12.1-15.1); White Blood Count 4.7 10^3/uL (4.0-10.0)
[2019-09-29 09:00] LABS: INR 1.18 (0.8-1.2)
[2019-09-29 09:11] LABS: Alanine Aminotransferase 12 U/L (0-41); Albumin Level 4.3 g/dL (3.5-5.2); Alkaline Phosphatase 88 IU/L (40-130); Anion Gap 17.1 (5-19); Aspartate Amino Transferase 21 U/L (0-40); Calcium 8.9 mg/dL (8.5-10.5); Carbon Dioxide 25 mmol/L (22-29); Chloride 94 mmol/L (98-107); Globulin 2.6 g/dL (1.3-4.6); Glucose 218 mg/dL (65-115); Lactate Dehydrogenase 238 U/L (135-225); Osmolality Calculated 281 mOsm/kg (285-295); Potassium 4.1 mmol/L (3.5-5.1); Sodium 132 mmol/L (136-145); Total Bilirubin 0.4 mg/dL (0.15-1.2); Total Protein 6.9 g/dL (6.6-8.7)
[2019-09-29 09:51] LABS: Blood Urea Nitrogen 90 mg/dL (8-23)
== END 2019-09-29 08:10 | disposition home or self-care (01) ==
LOC: LAB 08:18
PROVIDERS: PCP Family Medicine; Visit Provider Internal Medicine
DX: Z95.810 Presence of automatic (implantable) cardiac defibrillator (principal); Z79.01 Long term (current) use of anticoagulants
CPT/HCPCS: 36415; 80053; 83615; 85025; 85610

== ENCOUNTER 2019-10-13 08:22 | Outpatient (CLI) | payer MEDICARE, OTHER, SELFPAY ==
[2019-10-13 08:56] LABS: Basophils % 0.2 %; Eosinophils # 0.1 10^3/uL (0.0-0.8); Eosinophils % 1.5 %; Hematocrit 33.1 % (42.0-52.0); Hemoglobin 10.4 g/dL (11.7-16.6); Lymphocytes # 0.6 10^3/uL (0.8-4.8); Lymphocytes % 13.3 %; Mean Corpuscular HGB Conc 31.4 g/dL (30.0-36.0); Mean Corpuscular Hemoglobin 31.7 pg (28.0-34.0); Mean Corpuscular Volume 100.9 fL (80-94); Mean Platelet Volume 9.3 fL (7.4-10.4); Monocytes # 0.3 10^3/uL (0.2-0.9); Monocytes % 6.8 %; Neutrophils # 3.7 10^3/uL (1.8-7.7); Nucleated Red Blood Cells % 0.4 %; Platelet Count 105 10^3/cmm (130-400); Red Blood Count 3.28 10^6/uL (4.1-5.3); Red Cell Distribution Width 15.9 % (12.1-15.1); White Blood Count 4.8 10^3/uL (4.0-10.0)
[2019-10-13 09:04] LABS: INR 1.13 (0.8-1.2)
[2019-10-13 09:15] LABS: Alanine Aminotransferase 16 U/L (0-41); Albumin Level 4.2 g/dL (3.5-5.2); Alkaline Phosphatase 88 IU/L (40-130); Anion Gap 19.3 (5-19); Aspartate Amino Transferase 24 U/L (0-40); Calcium 9.5 mg/dL (8.5-10.5); Carbon Dioxide 26 mmol/L (22-29); Chloride 94 mmol/L (98-107); Globulin 2.5 g/dL (1.3-4.6); Glucose 113 mg/dL (65-115); Lactate Dehydrogenase 205 U/L (135-225); Osmolality Calculated 281 mOsm/kg (285-295); Potassium 4.3 mmol/L (3.5-5.1); Sodium 135 mmol/L (136-145); Total Bilirubin 0.4 mg/dL (0.15-1.2); Total Protein 6.7 g/dL (6.6-8.7)
[2019-10-13 12:51] LABS: Blood Urea Nitrogen 91 mg/dL (8-23)
== END 2019-10-13 08:23 | disposition home or self-care (01) ==
LOC: LAB 08:31
PROVIDERS: PCP Family Medicine; Visit Provider Internal Medicine
DX: Z95.811 Presence of heart assist device (principal); Z79.01 Long term (current) use of anticoagulants
CPT/HCPCS: 80053; 83615; 85025; 85610

== ENCOUNTER 2019-10-27 09:00 | Outpatient (CLI) | payer MEDICARE, OTHER, SELFPAY ==
[2019-10-27 10:20] LABS: Basophils % 0.2 %; Eosinophils # 0.1 10^3/uL (0.0-0.8); Eosinophils % 1.8 %; Hematocrit 29.3 % (42.0-52.0); Lymphocytes # 0.5 10^3/uL (0.8-4.8); Lymphocytes % 11.2 %; Mean Corpuscular HGB Conc 30.7 g/dL (30.0-36.0); Mean Corpuscular Hemoglobin 33.2 pg (28.0-34.0); Mean Corpuscular Volume 108.1 fL (80-94); Mean Platelet Volume 9.2 fL (7.4-10.4); Monocytes # 0.3 10^3/uL (0.2-0.9); Monocytes % 7.4 %; Neutrophils # 3.5 10^3/uL (1.8-7.7); Neutrophils % 78.1 %; Nucleated Red Blood Cells % 0.4 %; Platelet Count 99 10^3/cmm (130-400); Red Blood Count 2.71 10^6/uL (4.1-5.3); Red Cell Distribution Width 19.4 % (12.1-15.1); White Blood Count 4.5 10^3/uL (4.0-10.0)
[2019-10-27 10:29] LABS: INR 1.15 (0.8-1.2)
[2019-10-27 10:35] LABS: Alanine Aminotransferase 12 U/L (0-41); Albumin Level 4.1 g/dL (3.5-5.2); Alkaline Phosphatase 86 IU/L (40-130); Anion Gap 21.1 (5-19); Aspartate Amino Transferase 22 U/L (0-40); Blood Urea Nitrogen 69 mg/dL (8-23); Carbon Dioxide 24 mmol/L (22-29); Chloride 92 mmol/L (98-107); Glucose 110 mg/dL (65-115); Lactate Dehydrogenase 247 U/L (135-225); Osmolality Calculated 276 mOsm/kg (285-295); Potassium 4.1 mmol/L (3.5-5.1); Sodium 133 mmol/L (136-145); Total Bilirubin 0.4 mg/dL (0.15-1.2); Total Protein 7.1 g/dL (6.6-8.7)
== END 2019-10-27 09:01 | disposition home or self-care (01) ==
LOC: ONCMED 09:04
PROVIDERS: PCP Family Medicine; Visit Provider Internal Medicine
DX: Z95.811 Presence of heart assist device (principal); Z79.01 Long term (current) use of anticoagulants
CPT/HCPCS: 36415; 80053; 83615; 85025; 85610

== ENCOUNTER 2019-10-29 08:15 | Outpatient (CLI) | payer MEDICARE, OTHER, SELFPAY ==
[2019-10-29] VITALS (9 sets, daily range): BP systolic 94–112; BP diastolic 62–80; PULSE 70; RESP 16–17; TEMP 36.1–36.6; O2SAT 96–98
[2019-10-29 08:57] LABS: Basophils % 0.5 %; Eosinophils % 0.9 %; Hemoglobin 7.9 g/dL (11.7-16.6); Lymphocytes # 0.6 10^3/uL (0.8-4.8); Lymphocytes % 12.8 %; Mean Corpuscular HGB Conc 30.4 g/dL (30.0-36.0); Mean Corpuscular Hemoglobin 32.5 pg (28.0-34.0); Mean Platelet Volume 9.1 fL (7.4-10.4); Monocytes # 0.4 10^3/uL (0.2-0.9); Monocytes % 8.2 %; Neutrophils # 3.3 10^3/uL (1.8-7.7); Neutrophils % 76.7 %; Nucleated Red Blood Cells % 0.7 %; Platelet Count 93 10^3/cmm (130-400); Red Blood Count 2.43 10^6/uL (4.1-5.3); Red Cell Distribution Width 18.9 % (12.1-15.1); White Blood Count 4.3 10^3/uL (4.0-10.0)
[2019-10-29] MEDS: acetaminophen 325 mg Tablet 650 MG PO (11:05)
[2019-10-29] MEDS: diphenhydrAMINE 25 mg Capsule PO (11:05)
[2019-10-29] MEDS: sodium chloride 0.9% 250 ML 999 ML IV (11:05)
== END 2019-10-29 08:16 | disposition home or self-care (01) ==
PROVIDERS: PCP Family Medicine; Visit Provider Internal Medicine Medical Oncology
DX: D62 Acute posthemorrhagic anemia (principal); I48.91 Unspecified atrial fibrillation; I25.10 Atherosclerotic heart disease of native coronary artery without angina pectoris; I25.5 Ischemic cardiomyopathy; E78.5 Hyperlipidemia, unspecified; M10.9 Gout, unspecified; E03.9 Hypothyroidism, unspecified; E11.42 Type 2 diabetes mellitus with diabetic polyneuropathy; N18.4 Chronic kidney disease, stage 4 (severe); I12.0 Hypertensive chronic kidney disease with stage 5 chronic kidney disease or end stage renal disease
CPT/HCPCS: 36430; 85025; 86850; 86900; 86920; J7050; P9016

== ENCOUNTER 2019-11-10 08:10 | Outpatient (CLI) | payer MEDICARE, OTHER, SELFPAY ==
[2019-11-10 08:52] LABS: Basophils % 0.4 %; Eosinophils # 0.1 10^3/uL (0.0-0.8); Eosinophils % 1.3 %; Hematocrit 33.3 % (42.0-52.0); Hemoglobin 10.5 g/dL (11.7-16.6); Lymphocytes # 0.7 10^3/uL (0.8-4.8); Lymphocytes % 15.8 %; Mean Corpuscular HGB Conc 31.5 g/dL (30.0-36.0); Mean Corpuscular Hemoglobin 32.9 pg (28.0-34.0); Mean Corpuscular Volume 104.4 fL (80-94); Mean Platelet Volume 9.3 fL (7.4-10.4); Monocytes # 0.5 10^3/uL (0.2-0.9); Monocytes % 9.6 %; Neutrophils # 3.37 10^3/uL (1.8-7.7); Nucleated Red Blood Cells % 0 %; Platelet Count 116 10^3/cmm (130-400); Red Blood Count 3.19 10^6/uL (4.1-5.3); Red Cell Distribution Width 18.2 % (12.1-15.1); White Blood Count 4.7 10^3/uL (4.0-10.0)
[2019-11-10 09:10] LABS: Alanine Aminotransferase 10 U/L (0-41); Albumin Level 4.3 g/dL (3.5-5.2); Alkaline Phosphatase 70 IU/L (40-130); Anion Gap 18.3 (5-19); Aspartate Amino Transferase 19 U/L (0-40); Blood Urea Nitrogen 81 mg/dL (8-23); Calcium 8.4 mg/dL (8.5-10.5); Carbon Dioxide 25 mmol/L (22-29); Chloride 94 mmol/L (98-107); Globulin 2.6 g/dL (1.3-4.6); Glucose 106 mg/dL (65-115); INR 1.22 (0.8-1.2); Lactate Dehydrogenase 242 U/L (135-225); Osmolality Calculated 276 mOsm/kg (285-295); Potassium 4.3 mmol/L (3.5-5.1); Sodium 133 mmol/L (136-145); Total Bilirubin 0.5 mg/dL (0.15-1.2); Total Protein 6.9 g/dL (6.6-8.7)
== END 2019-11-10 08:11 | disposition home or self-care (01) ==
LOC: LAB 08:15
PROVIDERS: PCP Family Medicine; Visit Provider Internal Medicine
DX: Z95.811 Presence of heart assist device (principal); Z79.01 Long term (current) use of anticoagulants
CPT/HCPCS: 80053; 83615; 85025; 85610

== ENCOUNTER 2019-12-08 08:40 | Outpatient (CLI) | payer MEDICARE, OTHER, SELFPAY ==
[2019-12-08 09:51] LABS: Basophils % 0.5 %; Eosinophils # 0.1 10^3/uL (0.0-0.8); Eosinophils % 1.6 %; Hemoglobin 8.8 g/dL (11.7-16.6); Lymphocytes # 0.4 10^3/uL (0.8-4.8); Lymphocytes % 11.6 %; Mean Corpuscular HGB Conc 30.3 g/dL (30.0-36.0); Mean Corpuscular Hemoglobin 32.4 pg (28.0-34.0); Mean Corpuscular Volume 106.6 fL (80-94); Mean Platelet Volume 9.4 fL (7.4-10.4); Monocytes # 0.3 10^3/uL (0.2-0.9); Neutrophils # 2.87 10^3/uL (1.8-7.7); Neutrophils % 75.7 %; Nucleated Red Blood Cells % 0.8 %; Platelet Count 97 10^3/cmm (130-400); Red Blood Count 2.72 10^6/uL (4.1-5.3); Red Cell Distribution Width 20.6 % (12.1-15.1); White Blood Count 3.8 10^3/uL (4.0-10.0)
[2019-12-08 10:00] LABS: INR 1.12 (0.8-1.2)
[2019-12-08 10:12] LABS: Blood Urea Nitrogen 79 mg/dL (8-23); Calcium 8.4 mg/dL (8.5-10.5); Carbon Dioxide 24 mmol/L (22-29); Chloride 97 mmol/L (98-107); Glucose 137 mg/dL (65-115); Osmolality Calculated 280 mOsm/kg (285-295); Sodium 134 mmol/L (136-145)
== END 2019-12-08 08:41 | disposition home or self-care (01) ==
LOC: LAB 08:43
PROVIDERS: Absent Provider Internal Medicine Cardiovascular Disease; PCP Family Medicine; Visit Provider Internal Medicine
DX: Z95.811 Presence of heart assist device (principal); I50.23 Acute on chronic systolic (congestive) heart failure; D62 Acute posthemorrhagic anemia
CPT/HCPCS: 36415; 80048; 85025; 85610

== ENCOUNTER 2019-12-22 09:05 | Outpatient (CLI) | payer MEDICARE, OTHER, SELFPAY ==
[2019-12-22 09:36] LABS: Basophils % 0.4 %; Eosinophils # 0.1 10^3/uL (0.0-0.8); Eosinophils % 1.8 %; Hematocrit 31.3 % (42.0-52.0); Hemoglobin 9.4 g/dL (11.7-16.6); Lymphocytes # 0.7 10^3/uL (0.8-4.8); Lymphocytes % 14.6 %; Mean Corpuscular Volume 109.8 fL (80-94); Mean Platelet Volume 9.3 fL (7.4-10.4); Monocytes # 0.4 10^3/uL (0.2-0.9); Neutrophils # 3.25 10^3/uL (1.8-7.7); Neutrophils % 72.9 %; Nucleated Red Blood Cells % 0 %; Platelet Count 100 10^3/cmm (130-400); Red Blood Count 2.85 10^6/uL (4.1-5.3); Red Cell Distribution Width 19.1 % (12.1-15.1); White Blood Count 4.5 10^3/uL (4.0-10.0)
[2019-12-22 09:53] LABS: Alanine Aminotransferase 12 U/L (0-41); Albumin Level 4.1 g/dL (3.5-5.2); Alkaline Phosphatase 74 IU/L (40-130); Anion Gap 21.1 (5-19); Aspartate Amino Transferase 16 U/L (0-40); Calcium 8.6 mg/dL (8.5-10.5); Carbon Dioxide 21 mmol/L (22-29); Chloride 95 mmol/L (98-107); Globulin 2.9 g/dL (1.3-4.6); Glucose 155 mg/dL (65-115); Lactate Dehydrogenase 200 U/L (135-225); Osmolality Calculated 277 mOsm/kg (285-295); Potassium 5.1 mmol/L (3.5-5.1); Sodium 132 mmol/L (136-145); Total Bilirubin 0.4 mg/dL (0.15-1.2)
[2019-12-22 10:19] LABS: Blood Urea Nitrogen 86 mg/dL (8-23)
== END 2019-12-22 09:06 | disposition home or self-care (01) ==
LOC: LAB 09:08
PROVIDERS: PCP Family Medicine; Visit Provider Internal Medicine
DX: Z95.811 Presence of heart assist device (principal)
CPT/HCPCS: 80053; 83615; 85025

== ENCOUNTER 2019-12-31 12:51 | Outpatient (CLI) | payer MEDICARE, OTHER, SELFPAY ==
--- NOTE | 2019-12-31 12:59 | US_ITS ---
WS: [id number] ULTRASOUND-GUIDED PARACENTESIS CLINICAL INFORMATION: HEART FAILURE COMPARISON: None. Procedure Informed consent: The risks, benefits, and alternatives of the procedure were discussed with the howie ent. Verbal and written consent was obtained. Timeout: A timeout was performed to confirm the correct patient, procedure, and site. Preparation: A suitable skin site was identified. The patient was prepped and draped in usual sterile fashion. Lidocaine 1% was used for local anesthesia. Catheter: 4 Syriac One-step Yueh catheter. Side: Right Lower quadrant. Fluid Volume: 1250 ml Color: Clear yellow DISPOSITION: Discarded safely. Complications: None. US/US paracentesis abd w [id number] IMPRESSION: Uncomplicated ultrasound-guided paracentesis. Removal of 1250 cc
[2019-12-31 13:38] VITALS: BMI 32.7
[2019-12-31 13:39] VITALS: BP 127/82; PULSE 70; RESP 18; TEMP 36.1; O2SAT 99
== END 2019-12-31 12:52 | disposition home or self-care (01) ==
LOC: RAD 12:55
PROVIDERS: PCP Family Medicine; Visit Provider Internal Medicine
DX: I50.9 Heart failure, unspecified (principal)
CPT/HCPCS: 49083

== ENCOUNTER 2020-01-01 15:21 | Emergency (ER) | payer MEDICARE, OTHER, SELFPAY ==
[2020-01-01 15:24] VITALS: PULSE 71; RESP 16; TEMP 36.2; O2SAT 100; BMI 31.5
[2020-01-01 18:20] LABS: Glucose Point of Care 78 mg/dL (70-110)
[2020-01-01 18:25] LABS: Basophils % 0.3 %; Eosinophils # 0.1 10^3/uL (0.0-0.8); Eosinophils % 1.1 %; Hematocrit 27.8 % (42.0-52.0); Hemoglobin 8.8 g/dL (11.7-16.6); Lymphocytes # 1.3 10^3/uL (0.8-4.8); Lymphocytes % 18.3 %; Mean Corpuscular HGB Conc 31.7 g/dL (30.0-36.0); Mean Corpuscular Hemoglobin 33.6 pg (28.0-34.0); Mean Corpuscular Volume 106.1 fL (80-94); Mean Platelet Volume 9.1 fL (7.4-10.4); Monocytes # 0.7 10^3/uL (0.2-0.9); Monocytes % 9.9 %; Neutrophils # 4.84 10^3/uL (1.8-7.7); Neutrophils % 69.4 %; Nucleated Red Blood Cells % 0 %; Platelet Count 129 10^3/cmm (130-400); Red Blood Count 2.62 10^6/uL (4.1-5.3); Red Cell Distribution Width 17.6 % (12.1-15.1)
[2020-01-01 18:38] LABS: INR 1.22 (0.8-1.2)
[2020-01-01 18:39] LABS: Partial Thromboplastin Time 35.6 SECONDS (23.9-36.7)
[2020-01-01 18:42] LABS: Alanine Aminotransferase 11 U/L (0-41); Albumin Level 4.2 g/dL (3.5-5.2); Alkaline Phosphatase 75 IU/L (40-130); Aspartate Amino Transferase 19 U/L (0-40); Calcium 8.6 mg/dL (8.5-10.5); Carbon Dioxide 21 mmol/L (22-29); Chloride 93 mmol/L (98-107); Globulin 2.7 g/dL (1.3-4.6); Glucose 52 mg/dL (65-115); Osmolality Calculated 272 mOsm/kg (285-295); Sodium 132 mmol/L (136-145); Total Bilirubin 0.4 mg/dL (0.15-1.2); Total Protein 6.9 g/dL (6.6-8.7)
[2020-01-01 18:56] LABS: Blood Urea Nitrogen 92 mg/dL (8-23)
--- NOTE | 2020-01-01 19:50 | W.ED.GIBLEED ---
HPI - GI Bleed General: Chief complaint: GI Bleed Stated complaint: possible gi bleed Time Seen by Provider: 01/01/20 19:40 Source: patient Mode of arrival: ambulatory Limitations: no limitations History of Present Illness: HPI Narrative: 74-year-old male who has a history of LVAD placement and has had multiple GI bleeds in the past. He has been anemic and has had multiple transfusions as well. Patient states that he had paracentesis yesterday and then had bright red stools earlier today. He states that it slowed down quite a bit. He denies any weakness. Denies any pain. Denies any fevers. Associated symptoms: Denies abdominal pain, chills, easy bruising, fever(s), headache(s), nausea, rash or vomiting Review of Systems Const: Denies: fever(s), chills, body aches or change in appetite Eyes: Denies: blurry vision or eye discomfort ENMT: Denies: throat pain or dental pain Card: Denies: chest pain Resp: Denies: dyspnea GI: Reports: hematochezia; Denies: abdominal pain, nausea, vomiting or diarrhea : Denies: dysuria Musc: Denies: neck pain or back pain Skin/Breast: Denies: rash Neuro: Denies: headache(s) Psych: Denies: depression Hipolito/Lymph: Denies: easy bruising All/Imm: Denies: urticaria PFSH ED PFSH: Medical History Anemia Ascites ASHD (arteriosclerotic heart disease) Atrial fibrillation Cardiac defibrillator in place Cardiomyopathy CHF (congestive heart failure) CKD (chronic kidney disease) Cystitis Diabetes Hyperlipidemia Hypertension Left ventricular assist device present LVAD (left ventricular assist device) present Mitral regurgitation Pulmonary hypertension Thyroid nodule Surgical History H/O hernia repair H/O thyroidectomy Hx of appendectomy Family History Other CAD (coronary artery disease) Cancer Hypertension Social History Smoking and tobacco status: former smoker Alcohol intake: never Physical Exam Const: COMMON NORMALS: no acute distress, patient oriented x3 and healthy appearing HENMT: COMMON NORMALS: normocephalic and atraumatic HEAD & SCALP: normocephalic and atraumatic Eye: COMMON NORMALS: Equal, round and reactive pupils present and EOMs intact bilaterally PUPIL: Yes Equal, round and reactive pupils present Neck/C-Spine: COMMON NORMALS: full ROM and supple Chest: COMMONS NORMALS: normal inspection of the chest and normal palpation of entire chest wall Resp: COMMON NORMALS: normal respiratory effort, No retractions, No use of accessory muscles and clear to auscultation bilaterally AUSCULTATION: clear to auscultation bilaterally Cardio: COMMON NORMALS: regular rate, regular rhythm and No murmurs present (Cardio) RATE: regular rate RHYTHM: regular rhythm GI: COMMON NORMALS: Normal to inspection, nondistended, normoactive bowel sounds present, Soft to palpation, non-tender and no masses PALPATION: Yes Soft to palpation : OTHER: stool is brown, hemoccult negative Extremity: COMMON NORMALS: normal to inspection and full ROM Neuro: COMMON NORMALS: patient oriented x3, moves all extremities and no focal motor deficits Psych: COMMON NORMALS: mental status grossly normal, Normal thought process present and cooperative THOUGHT PROCESS: Normal thought process present Skin: COMMON NORMALS: no rashes or lesions noted and no wounds GENERAL SKIN EXAM: no rashes or lesions noted Course Vital Signs: Vital signs: Vital Signs Temperature 97.1 F L 01/01/20 15:24 Pulse Rate 71 01/01/20 15:24 Respiratory Rate 16 01/01/20 15:24 Pulse Oximetry 100 01/01/20 15:24 MDM - GI Bleed MDM Narrative: Medical decision making narrative: Patient presents here with a GI bleed. He has had these frequently with his LVAD. His hemoglobin here is at his baseline. I did offer him admission to monitor his hemoglobin. He states that he does not want to stay in the hospital if his hemoglobin is at its baseline and states that he has an appointment in 1 to 2 days. I informed him if he has any heavy bleeding he is to return immediately. His rectal exam here did show brown stool and was mildly Hemoccult positive. He understands and agrees to the plan. Lab Data: Labs: Lab Results 01/01/20 01/01/20 01/01/20 Range/Units 18:09 18:09 18:09 WBC 7.0 (4.0-10.0) 10^3/ uL RBC 2.62 L (4.1-5.3) 10^6/u L Hgb 8.8 L (11.7-16.6) g/dL Hct 27.8 L (42.0-52.0) % MCV 106.1 H (80-94) fL MCH 33.6 (28.0-34.0) pg MCHC 31.7 (30.0-36.0) g/dL RDW 17.6 H (12.1-15.1) % Plt Count 129 L (130-400) 10^3/c mm MPV 9.1 (7.4-10.4) fL Neut % (Auto) 69.4 % Lymph % (Auto) 18.3 % [place] % (Auto) 9.9 % Eos % (Auto) 1.1 % Baso % (Auto) 0.3 % Neut # (Auto) 4.84 (1.8-7.7) 10^3/u L Lymph # (Auto) 1.3 (0.8-4.8) 10^3/u L [place] # (Auto) 0.7 (0.2-0.9) 10^3/u L Eos # (Auto) 0.1 (0.0-0.8) 10^3/u L Baso # (Auto) 0.0 (0.0-0.1) 10^3/u L Nucleated RBC % (a uto) 0 % Nucleated RBCs # 0.0 /100WBC PT 15.90 H (12.1-14.9) SECO NDS INR 1.22 H (0.8-1.2) APTT 35.6 (23.9-36.7) SECO NDS Sodium 132 L (136-145) mmol/L Potassium 4.0 (3.5-5.1) mmol/L Chloride 93 L (98-107) mmol/L Carbon Dioxide 21 L (22-29) mmol/L Anion Gap 22.0 H (5-19) BUN 92 H* (8-23) mg/dL Creatinine 3.9 H (0.7-1.2) mg/dL GFR Calculation Not Reportable Glucose 52 L (65-115) mg/dL POC Glucose (70-110) mg/dL Calculated Osmolal ity 272 L (285-295) mOsm/k g Calcium 8.6 (8.5-10.5) mg/dL Total Bilirubin 0.4 (0.15-1.2) mg/dL AST 19 (0-40) U/L ALT 11 (0-41) U/L Alkaline Phosphata se 75 (40-130) IU/L Total Protein 6.9 (6.6-8.7) g/dL Albumin 4.2 (3.5-5.2) g/dL Globulin 2.7 (1.3-4.6) g/dL 01/01/20 Range/Units 18:17 WBC (4.0-10.0) 10^3/ uL RBC (4.1-5.3) 10^6/u L Hgb (11.7-16.6) g/dL Hct (42.0-52.0) % MCV (80-94) fL MCH (28.0-34.0) pg MCHC (30.0-36.0) g/dL RDW (12.1-15.1) % Plt Count (130-400) 10^3/c mm MPV (7.4-10.4) fL Neut % (Auto) % Lymph % (Auto) % [place] % (Auto) % Eos % (Auto) % Baso % (Auto) % Neut # (Auto) (1.8-7.7) 10^3/u L Lymph # (Auto) (0.8-4.8) 10^3/u L [place] # (Auto) (0.2-0.9) 10^3/u L Eos # (Auto) (0.0-0.8) 10^3/u L Baso # (Auto) (0.0-0.1) 10^3/u L Nucleated RBC % (a uto) % Nucleated RBCs # /100WBC PT (12.1-14.9) SECO NDS INR (0.8-1.2) APTT (23.9-36.7) SECO NDS Sodium (136-145) mmol/L Potassium (3.5-5.1) mmol/L Chloride (98-107) mmol/L Carbon Dioxide (22-29) mmol/L Anion Gap (5-19) BUN (8-23) mg/dL Creatinine (0.7-1.2) mg/dL GFR Calculation Glucose (65-115) mg/dL POC Glucose 78 (70-110) mg/dL Calculated Osmolal ity (285-295) mOsm/k g Calcium (8.5-10.5) mg/dL Total Bilirubin (0.15-1.2) mg/dL AST (0-40) U/L ALT (0-41) U/L Alkaline Phosphata se (40-130) IU/L Total Protein (6.6-8.7) g/dL Albumin (3.5-5.2) g/dL Globulin (1.3-4.6) g/dL Discharge Plan Discharge Patient Disposition: Home Clinical Impression: Bloody stool Condition: Stable Prescriptions: No Action levothyroxine 112 mcg capsule 112 mcg PO DAILY RF: 0 acetaminophen [Tylenol] 325 mg tablet 325 mg PO Q6H PRN (Reason: Pain) RF: 0 nitroglycerin [Nitrostat] 0.4 mg tablet, sublingual 0.4 mg SUBLINGUAL Q5M PRN (Reason: Chest Pain) RF: 0 rosuvastatin [Crestor] 20 mg tablet 20 mg PO DAILY RF: 0 polyethylene glycol 3350 [Miralax] 17 gram/dose powder 17 gm PO DAILY RF: 0 spironolactone 50 mg tablet 50 mg PO DAILY RF: 0 metoprolol succinate 25 mg tablet extended release 24 hr 25 mg PO DAILY RF: 0 trazodone 50 mg tablet 50 mg PO DAILY RF: 0 isosorbide mononitrate 60 mg tablet extended release 24 hr 90 mg PO DAILY RF: 0 bumetanide 2 mg tablet 8 mg PO BID RF: 0 folic acid 1 mg tablet 1 mg PO BID RF: 0 Lantus U-100 Insulin 100 unit/mL solution 20 unit SUBCUT DAILY RF: 0 allopurinol 300 mg tablet 150 mg PO DAILY RF: 0 potassium chloride 20 mEq tablet extended release 40 meq PO BID RF: 0 insulin aspart U-100 [Novolog U-100 Insulin aspart] 100 unit/mL solution 12 unit SUBCUT TID RF: 0 amoxicillin 500 mg tablet 500 mg PO BID RF: 0 ferrous gluconate 324 mg (38 mg iron) tablet 324 mg PO DAILY RF: 0 levetiracetam [Keppra] 750 mg tablet 750 mg PO BID RF: 0 sulfamethoxazole-trimethoprim [Bactrim DS] 800-160 mg tablet 1 tab PO BID RF: 0 Discharge Orders: Discharge Order (Routine); Ordered 01/01/20 Ordered By: Sara Corcoran Referrals: Jesus Rodriguez MD [Primary Care Provider] - 1-3 days Discharge Diet: Advance as tolerated Discharge Activity: Resume usual activity Patient Instructions: Rectal Bleeding (ED) Coding Level of Care Code ED [employer] for Addis Owens
[2020-01-01 20:00] VITALS: PULSE 70; RESP 16; O2SAT 100
== END 2020-01-01 20:10 | disposition home or self-care (01) ==
PROVIDERS: Family Medicine; Emergency Provider Emergency Medicine; PCP Family Medicine
DX: K92.1 Melena (principal); Z79.4 Long term (current) use of insulin; I48.91 Unspecified atrial fibrillation; I11.0 Hypertensive heart disease with heart failure; I50.9 Heart failure, unspecified; E11.9 Type 2 diabetes mellitus without complications; E78.5 Hyperlipidemia, unspecified; Z87.891 Personal history of nicotine dependence; Z95.810 Presence of automatic (implantable) cardiac defibrillator
CPT/HCPCS: 12345; 36415; 36416; 80053; 82962; 85025; 85610; 85730; 99281; 99282

== ENCOUNTER 2020-01-02 10:32 | Outpatient (CLI) | payer MEDICARE, OTHER, SELFPAY ==
[2020-01-02 12:15] LABS: Basophils % 0.2 %; Eosinophils % 0.9 %; Hematocrit 22.8 % (42.0-52.0); Lymphocytes # 0.5 10^3/uL (0.8-4.8); Lymphocytes % 10.9 %; Mean Corpuscular HGB Conc 30.7 g/dL (30.0-36.0); Mean Corpuscular Hemoglobin 33.2 pg (28.0-34.0); Mean Corpuscular Volume 108.1 fL (80-94); Mean Platelet Volume 9.1 fL (7.4-10.4); Monocytes # 0.3 10^3/uL (0.2-0.9); Monocytes % 6.6 %; Neutrophils # 3.54 10^3/uL (1.8-7.7); Neutrophils % 80.5 %; Nucleated Red Blood Cells % 0.5 %; Platelet Count 119 10^3/cmm (130-400); Red Blood Count 2.11 10^6/uL (4.1-5.3); White Blood Count 4.4 10^3/uL (4.0-10.0)
[2020-01-02 12:39] LABS: Iron 71 ug/dL (59-158); Total Iron Binding Capacity 262 mcg/dl; Unsaturated Iron Binding 191 ug/dL (112-347)
[2020-01-02 13:50] VITALS: BP 110/75; PULSE 69; PULSE 70; RESP 18; TEMP 36.1; TEMP 36.2; O2SAT 100
[2020-01-02 14:05] VITALS: PULSE 70; RESP 16; TEMP 36.2; O2SAT 99
[2020-01-02 14:20] VITALS: BP 102/69; PULSE 68; RESP 16; TEMP 36.1; O2SAT 100
--- NOTE | 2020-01-02 17:38 | PC.NURSE ---
Half way through transfusion of first unit, patient reported urgency to have a bowel movement. When patient stood up to get on bedside commode, his bowels moved. patients depends was completely saturated in dark blood and completely filled with many blood clots. Patient reported, this happens sometimes, but not quite this bad . Called on-call GI doc, and was advised to take patient to ER. Gave report to Irina LAGUNAS and Savannah LAGUNAS in ER. Patients notified.
[2020-01-02 20:27] LABS: Glucose Point of Care 263 mg/dL (70-110)
== END 2020-01-02 10:33 | disposition home or self-care (01) ==
LOC: ONCMED 10:34
PROVIDERS: PCP Family Medicine; Visit Provider Internal Medicine Medical Oncology
DX: D62 Acute posthemorrhagic anemia (principal)
CPT/HCPCS: 36415; 36416; 36430; 82962; 83540; 83550; 85025

== ENCOUNTER 2020-01-02 12:35 | Day surgery (SDC) | payer MEDICARE, OTHER, SELFPAY ==
[2020-01-02 12:58] VITALS: BP 94/71; PULSE 68; RESP 18; TEMP 36.2; O2SAT 100; BMI 30.7
== END 2020-01-02 15:35 | disposition home or self-care (01) ==
LOC: OPS 12:41
PROVIDERS: PCP Family Medicine; Visit Provider Internal Medicine Medical Oncology
DX: D62 Acute posthemorrhagic anemia (principal)
CPT/HCPCS: 36415; 36416; 36430; 82962; 83540; 83550; 85025

== ENCOUNTER 2020-01-02 15:30 | Inpatient (IN) | payer MEDICARE, OTHER, SELFPAY ==
[2020-01-02] VITALS (13 sets, daily range): BP systolic 81–113; BP diastolic 51–91; PULSE 69–79; RESP 16–18; TEMP 36.1–37; O2SAT 96–100; BMI 30.8
--- NOTE | 2020-01-02 15:33 | CTR_ITS ---
PROCEDURE INFORMATION: Exam: CT Abdomen And Pelvis Without Contrast Exam date and time: 01/02/2020 4:16 PM Age: 74 years old Clinical indication: Other: Rectal bleeding; Prior surgery; Surgery date: 6+ months; Surgery type: Hernia, appy, heart pump; Patient HX: Lower gi bleed w known ascites; Additional info: Rectal bleeding, abd pain TECHNIQUE: Imaging protocol: Computed tomography of the abdomen and pelvis without contrast. Radiation optimization: All CT scans at this facility use at least one of these dose optimization techniques: automated exposure control; mA and/or kV adjustment per patient size (includes targeted exams where dose is matched to clinical indication); or iterative reconstruction. COMPARISON: CT abdomen pelvis wo con [id number] 07/21/2015 12:06 AM RADIATION DOSE METRICS: Total DLP (mGy-cm): 1439.35 FINDINGS: Liver: Calcified granuloma in the liver. Gallbladder and bile ducts: Cholecystectomy. The bile ducts are normal. Pancreas: Normal. No ductal dilation. Spleen: Normal. No splenomegaly. Adrenals: Normal. No mass. Kidneys and ureters: Normal. No hydronephrosis. Stomach and bowel: Previous partial resection of the sigmoid colon with clips and sutures. Diverticulosis of the descending and sigmoid colon without diverticulitis. The stomach and small bowel are unremarkable. Appendix: The appendix is not visualized. Intraperitoneal space: Unremarkable. No free air. No significant fluid collection. Vasculature: Unremarkable. No abdominal aortic aneurysm. Lymph nodes: Unremarkable. No enlarged lymph nodes. Bladder: Unremarkable as visualized. Reproductive: Unremarkable as visualized. Bones/joints: T11 compression fracture which is sclerotic and likely chronic. No acute compression fracture. Soft tissues: Subcutaneous fat stranding or edema in the periumbilical abdominal wall. Other findings: LVAD in the upper left abdomen. CT/CT abdomen pelvis wo con [id number] IMPRESSION: 1. No acute abnormality identified in the abdomen or pelvis. 2. Diverticulosis of the distal colon. 3. Radiation Dose CTDIVOL = (mGy): DLP = 1439.35 (mGy-cm)
--- NOTE | 2020-01-02 15:34 | XR_ITS ---
WS: [id number] Portable AP upright chest, 01/02/2020 Clinical Data: dyspnea/cough Comparison: Portable chest, 04/22/2019. Findings: No nodules, masses or effusions are seen. The heart is enlarged. There is calcification of the wall of the left ventricle. There is a cardiac pacemaker with defibrillator. There is also a left ventricular assist device. The diaphragms are flattened. The aortic arch and descending aorta show t ortuosity. Midline sternotomy sutures are present.. The pulmonary vascularity is not increased. No pn eumonia or pneumothorax is seen. Monitor leads are on the chest wall. XR/XR chest 1V portable [id number] Impression: 1. Cardiomegaly and atherosclerosis. 2. Cardiac pacemaker, defibrillator and left ventricular assist device.
--- NOTE | 2020-01-02 15:37 | W.ED.GIBLEED ---
HPI - GI Bleed General: Chief complaint: GI Bleed Stated complaint: RECTAL BLEED Time Seen by Provider: 01/02/20 15:33 History of Present Illness: HPI Narrative: 74-year-old male presents the emergency room from outpatient GI with lower GI bleed. He was here yesterday and seen in the emergency room had a hemoglobin of 8 8 he had follow-up today and was transfused 2 units because his hemoglobin is down to 7.0. he did have removal of an outpatient paracentesis tube, there was concern of injury to the bowel. In the outpatient area they helped him go to the bathroom and found a large amount of blood in his depends and he was transferred over to the emergency room for further evaluation. Patient has severe cardiomyopathies currently has an LVAD in place. He has had multiple episodes in the past of GI blood loss requiring transfusion. complaint: gross hematochezia Onset (ago): hour(s) Pain Consistency: intermittent Severity: severe Relieving factors: none Exacerbating factors: none Context: history of GI bleed Associated symptoms: Reports malaise, nausea, poor appetite and weakness; Denies abdominal pain, chills, easy bruising, epistaxis, fever(s), headache(s), other bleeding, rash, syncope or vomiting Treatments Prior to Arrival: none Review of Systems Const: Reports: malaise; Denies: fever(s) or chills ENMT: Denies: epistaxis Card: Denies: syncope Resp: Denies: dyspnea, productive cough or non-productive cough GI: Reports: nausea; Denies: abdominal pain or vomiting : Denies: flank pain, dysuria, urinary frequency or urinary urgency Skin/Breast: Denies: rash Neuro: Denies: headache(s) Hipolito/Lymph: Denies: easy bruising [facility] ED PFSH: Medical History Anemia Ascites ASHD (arteriosclerotic heart disease) Atrial fibrillation Cardiac defibrillator in place Cardiomyopathy CHF (congestive heart failure) CKD (chronic kidney disease) Cystitis Diabetes Hyperlipidemia Hypertension Left ventricular assist device present Lower GI bleed requiring more than 4 units of blood in 24 hours, ICU, or surgery LVAD (left ventricular assist device) present Mitral regurgitation Pulmonary hypertension Thyroid nodule Surgical History H/O hernia repair H/O thyroidectomy Hx of appendectomy Family History Other CAD (coronary artery disease) Cancer Hypertension Social History Smoking and tobacco status: former smoker Alcohol intake: never Physical Exam Const: COMMON NORMALS: no acute distress GENERAL APPEARANCE: cooperative and comfortable ORIENTATION/CONSCIOUSNESS: Yes awake, Yes oriented to person, Yes oriented to place and Yes oriented to time HENMT: COMMON NORMALS: normocephalic and atraumatic HEAD & SCALP: normocephalic and atraumatic Neck/C-Spine: COMMON NORMALS: no JVD Resp: COMMON NORMALS: normal respiratory effort, No retractions, No use of accessory muscles and clear to auscultation bilaterally AUSCULTATION: clear to auscultation bilaterally Cardio: COMMON NORMALS: no JVD OTHER: Mechanical regular heart sounds secondary to LVAD pump GI: COMMON NORMALS: Soft to palpation and No hepatosplenomegaly present AUSCULTATION: Yes normoactive bowel sounds PALPATION: Yes Soft to palpation, No Tenderness to palpation present (GI), No Guarding due to palpation present (GI) and Yes No hepatosplenomegaly present Extremity: COMMON NORMALS: normal to inspection, capillary refill normal, no clubbing, cyanosis or edema, no calf tenderness and no pedal edema Neuro: SENSORIUM/ORIENTATION: Yes oriented to person, Yes oriented to place and Yes oriented to time Skin: COMMON NORMALS: no rashes or lesions noted GENERAL SKIN EXAM: no rashes or lesions noted Course Vital Signs: Vital signs: Vital Signs Temperature 97.6 F 01/05/20 17:31 Pulse Rate 75 01/05/20 17:31 Respiratory Rate 16 01/05/20 17:31 Blood Pressure 103/81 01/05/20 17:31 Pulse Oximetry 98 01/05/20 17:31 MDM - GI Bleed MDM Narrative: Medical decision making narrative: Patient placed on admission for transfusion for symptomatic anemia with ongoing blood loss. Discussed Dr. Moore. Lab Data: Labs: Lab Results 01/02/20 01/02/20 01/02/20 Range/Units 10:55 16:17 16:17 WBC (4.0-10.0) 10^3/ uL RBC (4.1-5.3) 10^6/u L Hgb (11.7-16.6) g/dL Hct (42.0-52.0) % MCV (80-94) fL MCH (28.0-34.0) pg MCHC (30.0-36.0) g/dL RDW (12.1-15.1) % Plt Count (130-400) 10^3/c mm MPV (7.4-10.4) fL Neut % (Auto) % Lymph % (Auto) % [place] % (Auto) % Eos % (Auto) % Baso % (Auto) % Neut # (Auto) (1.8-7.7) 10^3/u L Lymph # (Auto) (0.8-4.8) 10^3/u L [place] # (Auto) (0.2-0.9) 10^3/u L Eos # (Auto) (0.0-0.8) 10^3/u L Baso # (Auto) (0.0-0.1) 10^3/u L Nucleated RBC % (a uto) % Nucleated RBCs # /100WBC PT 16.80 H (12.1-14.9) SECO NDS INR 1.31 H (0.8-1.2) APTT 34.0 (23.9-36.7) SECO NDS Sodium (136-145) mmol/L Potassium (3.5-5.1) mmol/L Chloride (98-107) mmol/L Carbon Dioxide (22-29) mmol/L Anion Gap (5-19) BUN (8-23) mg/dL Creatinine (0.7-1.2) mg/dL GFR Calculation Glucose (65-115) mg/dL POC Glucose (70-110) mg/dL Calculated Osmolal ity (285-295) mOsm/k g Lactic Acid (0.5-2.2) mmol/L Lactic Acid (Sepsi s) (0.5-2.2) mmol/L Calcium (8.5-10.5) mg/dL Magnesium (1.7-2.3) mg/dL Total Bilirubin (0.15-1.2) mg/dL AST (0-40) U/L ALT (0-41) U/L Alkaline Phosphata se (40-130) IU/L Ammonia 95 H (16-60) umol/L Creatine Kinase (39-308) U/L Total Protein (6.6-8.7) g/dL Albumin (3.5-5.2) g/dL Globulin (1.3-4.6) g/dL Lipase (13-60) U/L Urine Color (Yellow) Urine Appearance (CLEAR) Urine pH (5-7) Ur Specific Gravit y (1.005-1.030) Urine Protein (Negative) Urine Glucose (UA) (Normal) Urine Ketones (Negative) Urine Blood (Negative) Urine Nitrate (Negative) Urine Bilirubin (Negative) Urine Urobilinogen (Negative) mg/dL Ur Leukocyte Shereen ase (Negative) Blood Type O Positive Rho(D) Type Positive Antibody Screen Negative Crossmatch See Detail 01/02/20 01/02/20 01/02/20 Range/Units 16:17 16:17 16:30 WBC (4.0-10.0) 10^3/ uL RBC (4.1-5.3) 10^6/u L Hgb (11.7-16.6) g/dL Hct (42.0-52.0) % MCV (80-94) fL MCH (28.0-34.0) pg MCHC (30.0-36.0) g/dL RDW (12.1-15.1) % Plt Count (130-400) 10^3/c mm MPV (7.4-10.4) fL Neut % (Auto) % Lymph % (Auto) % [place] % (Auto) % Eos % (Auto) % Baso % (Auto) % Neut # (Auto) (1.8-7.7) 10^3/u L Lymph # (Auto) (0.8-4.8) 10^3/u L [place] # (Auto) (0.2-0.9) 10^3/u L Eos # (Auto) (0.0-0.8) 10^3/u L Baso # (Auto) (0.0-0.1) 10^3/u L Nucleated RBC % (a uto) % Nucleated RBCs # /100WBC PT (12.1-14.9) SECO NDS INR (0.8-1.2) APTT (23.9-36.7) SECO NDS Sodium 133 L (136-145) mmol/L Potassium 5.0 (3.5-5.1) mmol/L Chloride 95 L (98-107) mmol/L Carbon Dioxide 22 (22-29) mmol/L Anion Gap 21.0 H (5-19) BUN 99 H* (8-23) mg/dL Creatinine 3.9 H (0.7-1.2) mg/dL GFR Calculation Not Reportable Glucose 330 H (65-115) mg/dL POC Glucose (70-110) mg/dL Calculated Osmolal ity 290 (285-295) mOsm/k g Lactic Acid 2.9 H (0.5-2.2) mmol/L Lactic Acid (Sepsi s) (0.5-2.2) mmol/L Calcium 8.0 L (8.5-10.5) mg/dL Magnesium (1.7-2.3) mg/dL Total Bilirubin 0.4 (0.15-1.2) mg/dL AST 15 (0-40) U/L ALT 10 (0-41) U/L Alkaline Phosphata se 60 (40-130) IU/L Ammonia (16-60) umol/L Creatine Kinase 49 (39-308) U/L Total Protein 6.2 L (6.6-8.7) g/dL Albumin 3.9 (3.5-5.2) g/dL Globulin 2.3 (1.3-4.6) g/dL Lipase 61 H (13-60) U/L Urine Color Yellow (Yellow) Urine Appearance Clear (CLEAR) Urine pH 5 (5-7) Ur Specific Gravit y 1.010 (1.005-1.030) Urine Protein Neg (Negative) Urine Glucose (UA) 1+ (Normal) Urine Ketones Negative (Negative) Urine Blood Neg (Negative) Urine Nitrate Negative (Negative) Urine Bilirubin Neg (Negative) Urine Urobilinogen Neg (Negative) mg/dL Ur Leukocyte Shereen ase Negative (Negative) Blood Type Rho(D) Type Antibody Screen Crossmatch 01/02/20 01/02/20 01/02/20 Range/Units 17:23 21:27 21:27 WBC 5.0 5.6 (4.0-10.0) 10^3/ uL RBC 2.32 L 2.60 L (4.1-5.3) 10^6/u L Hgb 7.4 L 8.5 L (11.7-16.6) g/dL Hct 24.0 L 26.7 L (42.0-52.0) % MCV 103.4 H 102.7 H (80-94) fL MCH 31.9 32.7 (28.0-34.0) pg MCHC 30.8 31.8 (30.0-36.0) g/dL RDW 20.0 H 19.4 H (12.1-15.1) % Plt Count 112 L 111 L (130-400) 10^3/c mm MPV 9.0 9.1 (7.4-10.4) fL Neut % (Auto) 76.4 73.9 % Lymph % (Auto) 13.4 13.3 % [place] % (Auto) 8.6 10.1 % Eos % (Auto) 0.6 1.1 % Baso % (Auto) 0.4 0.2 % Neut # (Auto) 3.83 4.15 (1.8-7.7) 10^3/u L Lymph # (Auto) 0.7 L 0.8 (0.8-4.8) 10^3/u L [place] # (Auto) 0.4 0.6 (0.2-0.9) 10^3/u L Eos # (Auto) 0.0 0.1 (0.0-0.8) 10^3/u L Baso # (Auto) 0.0 0.0 (0.0-0.1) 10^3/u L Nucleated RBC % (a uto) 0.6 0.7 % Nucleated RBCs # 0.0 0.0 /100WBC PT (12.1-14.9) SECO NDS INR (0.8-1.2) APTT (23.9-36.7) SECO NDS Sodium (136-145) mmol/L Potassium (3.5-5.1) mmol/L Chloride (98-107) mmol/L Carbon Dioxide (22-29) mmol/L Anion Gap (5-19) BUN (8-23) mg/dL Creatinine (0.7-1.2) mg/dL GFR Calculation Glucose (65-115) mg/dL POC Glucose (70-110) mg/dL Calculated Osmolal ity (285-295) mOsm/k g Lactic Acid (0.5-2.2) mmol/L Lactic Acid (Sepsi s) 2.1 (0.5-2.2) mmol/L Calcium (8.5-10.5) mg/dL Magnesium (1.7-2.3) mg/dL Total Bilirubin (0.15-1.2) mg/dL AST (0-40) U/L ALT (0-41) U/L Alkaline Phosphata se (40-130) IU/L Ammonia (16-60) umol/L Creatine Kinase (39-308) U/L Total Protein (6.6-8.7) g/dL Albumin (3.5-5.2) g/dL Globulin (1.3-4.6) g/dL Lipase (13-60) U/L Urine Color (Yellow) Urine Appearance (CLEAR) Urine pH (5-7) Ur Specific Gravit y (1.005-1.030) Urine Protein (Negative) Urine Glucose (UA) (Normal) Urine Ketones (Negative) Urine Blood (Negative) Urine Nitrate (Negative) Urine Bilirubin (Negative) Urine Urobilinogen (Negative) mg/dL Ur Leukocyte Shereen ase (Negative) Blood Type Rho(D) Type Antibody Screen Crossmatch 01/03/20 01/03/20 01/03/20 Range/Units 04:30 04:30 04:30 WBC 5.3 (4.0-10.0) 10^3/ uL RBC 2.33 L (4.1-5.3) 10^6/u L Hgb 7.5 L (11.7-16.6) g/dL Hct 23.7 L (42.0-52.0) % MCV 101.7 H (80-94) fL MCH 32.2 (28.0-34.0) pg MCHC 31.6 (30.0-36.0) g/dL RDW 19.7 H (12.1-15.1) % Plt Count 101 L (130-400) 10^3/c mm MPV 8.9 (7.4-10.4) fL Neut % (Auto) 76.6 % Lymph % (Auto) 12.1 % [place] % (Auto) 8.9 % Eos % (Auto) 0.9 % Baso % (Auto) 0.4 % Neut # (Auto) 4.03 (1.8-7.7) 10^3/u L Lymph # (Auto) 0.6 L (0.8-4.8) 10^3/u L [place] # (Auto) 0.5 (0.2-0.9) 10^3/u L Eos # (Auto) 0.1 (0.0-0.8) 10^3/u L Baso # (Auto) 0.0 (0.0-0.1) 10^3/u L Nucleated RBC % (a uto) 0.6 % Nucleated RBCs # 0.0 /100WBC PT (12.1-14.9) SECO NDS INR (0.8-1.2) APTT (23.9-36.7) SECO NDS Sodium Cancelled 133 L (136-145) mmol/L Potassium Cancelled 5.1 (3.5-5.1) mmol/L Chloride Cancelled 99 (98-107) mmol/L Carbon Dioxide Cancelled 21 L (22-29) mmol/L Anion Gap Cancelled 18.1 (5-19) BUN Cancelled 99 H* (8-23) mg/dL Creatinine Cancelled 3.6 H (0.7-1.2) mg/dL GFR Calculation Cancelled Not Reportable Glucose Cancelled 151 H (65-115) mg/dL POC Glucose (70-110) mg/dL Calculated Osmolal ity Cancelled 280 L (285-295) mOsm/k g Lactic Acid (0.5-2.2) mmol/L Lactic Acid (Sepsi s) (0.5-2.2) mmol/L Calcium Cancelled 7.8 L (8.5-10.5) mg/dL Magnesium 3.1 H (1.7-2.3) mg/dL Total Bilirubin 0.4 (0.15-1.2) mg/dL AST 14 (0-40) U/L ALT 9 (0-41) U/L Alkaline Phosphata se 47 (40-130) IU/L Ammonia (16-60) umol/L Creatine Kinase (39-308) U/L Total Protein 5.6 L (6.6-8.7) g/dL Albumin 3.6 (3.5-5.2) g/dL Globulin 2.0 (1.3-4.6) g/dL Lipase (13-60) U/L Urine Color (Yellow) Urine Appearance (CLEAR) Urine pH (5-7) Ur Specific Gravit y (1.005-1.030) Urine Protein (Negative) Urine Glucose (UA) (Normal) Urine Ketones (Negative) Urine Blood (Negative) Urine Nitrate (Negative) Urine Bilirubin (Negative) Urine Urobilinogen (Negative) mg/dL Ur Leukocyte Shereen ase (Negative) Blood Type Rho(D) Type Antibody Screen Crossmatch 01/03/20 01/03/20 Range/Units 06:32 08:11 WBC (4.0-10.0) 10^3/ uL RBC (4.1-5.3) 10^6/u L Hgb (11.7-16.6) g/dL Hct (42.0-52.0) % MCV (80-94) fL MCH (28.0-34.0) pg MCHC (30.0-36.0) g/dL RDW (12.1-15.1) % Plt Count (130-400) 10^3/c mm MPV (7.4-10.4) fL Neut % (Auto) % Lymph % (Auto) % [place] % (Auto) % Eos % (Auto) % Baso % (Auto) % Neut # (Auto) (1.8-7.7) 10^3/u L Lymph # (Auto) (0.8-4.8) 10^3/u L [place] # (Auto) (0.2-0.9) 10^3/u L Eos # (Auto) (0.0-0.8) 10^3/u L Baso # (Auto) (0.0-0.1) 10^3/u L Nucleated RBC % (a uto) % Nucleated RBCs # /100WBC PT 16.10 H (12.1-14.9) SECO NDS INR 1.25 H (0.8-1.2) APTT 33.6 (23.9-36.7) SECO NDS Sodium (136-145) mmol/L Potassium (3.5-5.1) mmol/L Chloride (98-107) mmol/L Carbon Dioxide (22-29) mmol/L Anion Gap (5-19) BUN (8-23) mg/dL Creatinine (0.7-1.2) mg/dL GFR Calculation Glucose (65-115) mg/dL POC Glucose 184 (70-110) mg/dL Calculated Osmolal ity (285-295) mOsm/k g Lactic Acid (0.5-2.2) mmol/L Lactic Acid (Sepsi s) (0.5-2.2) mmol/L Calcium (8.5-10.5) mg/dL Magnesium (1.7-2.3) mg/dL Total Bilirubin (0.15-1.2) mg/dL AST (0-40) U/L ALT (0-41) U/L Alkaline Phosphata se (40-130) IU/L Ammonia (16-60) umol/L Creatine Kinase (39-308) U/L Total Protein (6.6-8.7) g/dL Albumin (3.5-5.2) g/dL Globulin (1.3-4.6) g/dL Lipase (13-60) U/L Urine Color (Yellow) Urine Appearance (CLEAR) Urine pH (5-7) Ur Specific Gravit y (1.005-1.030) Urine Protein (Negative) Urine Glucose (UA) (Normal) Urine Ketones (Negative) Urine Blood (Negative) Urine Nitrate (Negative) Urine Bilirubin (Negative) Urine Urobilinogen (Negative) mg/dL Ur Leukocyte Shereen ase (Negative) Blood Type Rho(D) Type Antibody Screen Crossmatch Discharge Plan Discharge Patient Disposition: Admitted As Inpatient Admit Provider: Abhay Moore Clinical Impression: Lower gastrointestinal hemorrhage, Cardiomyopathy, ASHD (arteriosclerotic heart disease) Condition: Stable Discharge Orders: Discharge Order (Routine); Ordered 01/05/20 Ordered By: Abhay Moore Interventions: ED Discharge Assessment Last Done: 01/02/20 18:17 ED Charges Last Done: 01/02/20 18:17 Discharge Date/Time: 01/02/20 18:20 Coding Level of Care Code ED [employer] for [employer]
[2020-01-02 16:41] LABS: Alanine Aminotransferase 10 U/L (0-41); Albumin Level 3.9 g/dL (3.5-5.2); Alkaline Phosphatase 60 IU/L (40-130); Aspartate Amino Transferase 15 U/L (0-40); Carbon Dioxide 22 mmol/L (22-29); Chloride 95 mmol/L (98-107); Creatine Phosphokinase 49 U/L (39-308); Globulin 2.3 g/dL (1.3-4.6); Glucose 330 mg/dL (65-115); Lipase 61 U/L (13-60); Osmolality Calculated 290 mOsm/kg (285-295); Sodium 133 mmol/L (136-145); Total Bilirubin 0.4 mg/dL (0.15-1.2); Total Protein 6.2 g/dL (6.6-8.7)
[2020-01-02 16:42] LABS: Lactic Sepsis W/Reflex 2.9 mmol/L (0.5-2.2)
[2020-01-02 16:43] LABS: Ammonia 95 umol/L (16-60)
[2020-01-02 16:50] LABS: Blood Urea Nitrogen 99 mg/dL (8-23)
[2020-01-02 16:54] LABS: Add Urine Microscopic? NO; Bilirubin Urine Neg (Negative); Blood Urine Neg (Negative); Glucose Urine UA 1+ (Normal); Ketones Urine Negative (Negative); Leukocyte Esterase Urine Negative (Negative); Nitrate Urine Negative (Negative); Protein Urine Neg (Negative); Urine Appearance Clear (CLEAR); Urine Color Yellow (Yellow); Urobilinogen Urine Neg (Negative); pH Urine 5 (5-7)
[2020-01-02 17:17] LABS: INR 1.31 (0.8-1.2)
[2020-01-02 17:37] LABS: Basophils % 0.4 %; Eosinophils % 0.6 %; Hemoglobin 7.4 g/dL (11.7-16.6); Lymphocytes # 0.7 10^3/uL (0.8-4.8); Lymphocytes % 13.4 %; Mean Corpuscular HGB Conc 30.8 g/dL (30.0-36.0); Mean Corpuscular Hemoglobin 31.9 pg (28.0-34.0); Mean Corpuscular Volume 103.4 fL (80-94); Monocytes # 0.4 10^3/uL (0.2-0.9); Monocytes % 8.6 %; Neutrophils # 3.83 10^3/uL (1.8-7.7); Neutrophils % 76.4 %; Nucleated Red Blood Cells % 0.6 %; Platelet Count 112 10^3/cmm (130-400); Red Blood Count 2.32 10^6/uL (4.1-5.3)
[2020-01-02] MEDS: ondansetron 2 mg/ML SDV 2 mL 4 MG IVP (17:52)
[2020-01-02 18:07] LABS: Reflex Lactate Order REFLEX LACTIC ORDERD
[2020-01-02] MEDS: sodium chloride 0.9% (100 ml) 100 ML (18:14)
--- NOTE | 2020-01-02 18:53 | PM.HP ---
Providers/Chief Complaint Admitting Physician: Abhay Moore MD Primary Care Provider: Jesus Rodriguez MD Chief Complaint: RECTAL BLEED History of Present Illness Marvel Haddad is a 74 year old male with past medical history of coronary artery disease, heart failure with reduced ejection secondary to ischemic cardiomyopathy on LVAD (2013) for the last 6 years, hypothyroidism, diabetes type 2, gout, seizure disorder, cardiorenal syndrome, came in with chief complaint of having bright red blood per rectum. He started having the bright red blood per rectum after having paracentesis done because of ascites secondary to congestive hepatopathy. He was also in ER yesterday at that time his hemoglobin was 8.8 he was sent home in ER yesterday. He came back today again with similar complain. His hemoglobin in ER was 7 he was started on PRBC transfusion he is due to receive total of 2 unit. Second unit is right now running. On further questioning he denies any chest pain any shortness of breath any cough, any fever any chills, any nausea, vomiting, belly pain. On review of system Review of Systems General: Reports: 10 or more systems reviewed and unremarkable except in HPI and below Narrative: 69-year-old currently not in acute distress being admitted for chest pain evaluation Const: Denies: fever(s), chills, body aches, change in appetite or diaphoresis Eyes: Denies: change in vision, blurry vision or eye discharge ENMT: Denies: throat pain, odynophagia or mouth pain Card: Denies: palpitations, edema, swelling of feet/ankles, dyspnea on exertion, orthopnea or leg pain with exertion Resp: Denies: dyspnea, productive cough, wheezing or pain on inspiration GI: Denies: abdominal pain, nausea, vomiting, diarrhea or constipation : Denies: flank pain or difficulty urinating Musc: Denies: back pain, extremity pain or extremity swelling Neuro: Denies: headache(s), difficulty walking or confusion Medications/Allergies Home Medications Medication Instructions Recorded Confirmed Last Taken Type acetaminophen 325 mg tablet 325 mg PO Q6H PRN tab 07/23/19 01/02/20 Unknown History allopurinol 300 mg tablet 150 mg PO DAILY 07/23/19 01/02/20 01/02/20 History amoxicillin 500 mg tablet 500 mg PO BID 07/23/19 01/02/20 01/02/20 History bumetanide 2 mg tablet 8 mg PO BID tab 07/23/19 01/02/20 01/02/20 History ferrous gluconate 324 mg (38 mg 324 mg PO DAILY 07/23/19 01/02/20 01/02/20 History iron) tablet folic acid 1 mg tablet 2 mg PO DAILY tab 07/23/19 01/02/20 01/02/20 History insulin aspart U-100 100 unit/mL See Rx Instructions .ROUTE .COMPLEX 07/23/19 01/02/20 01/01/20 History subcutaneous solution insulin glargine 100 unit/mL 20 unit SUBCUT DAILY ml 07/23/19 01/02/20 01/01/20 History subcutaneous solution isosorbide mononitrate 60 mg 90 mg PO DAILY tab 07/23/19 01/02/20 01/02/20 History tablet,extended release 24 hr levetiracetam 750 mg tablet 750 mg PO BID 07/23/19 01/02/20 01/02/20 History levothyroxine 112 mcg capsule 112 mcg PO DAILY 07/23/19 01/02/20 01/02/20 History metoprolol succinate 25 mg 25 mg PO DAILY 07/23/19 01/02/20 01/02/20 History tablet,extended release 24 hr \ nitroglycerin 0.4 mg sublingual 0.4 mg SUBLINGUAL Q5M PRN 07/23/19 01/02/20 Unknown History tablet polyethylene glycol 3350 17 17 gm PO DAILY 07/23/19 01/02/20 01/01/20 History gram/dose oral powder potassium chloride 20 mEq 40 meq PO BID tab 07/23/19 01/02/20 12/29/19 History tablet,extended release rosuvastatin 20 mg tablet 20 mg PO DAILY 07/23/19 01/02/20 01/01/20 History spironolactone 50 mg tablet 50 mg PO DAILY 07/23/19 01/02/20 01/02/20 History sulfamethoxazole 800 1 tab PO DAILY 07/23/19 01/02/20 01/02/20 History mg-trimethoprim 160 mg tablet ondansetron HCl [Zofran] 4 mg PO Q6H PRN 01/02/20 01/02/20 01/02/20 History tramadol 50 mg PO BEDTIME PRN 01/02/20 01/02/20 Unknown History Allergies Allergy/AdvReac Type Severity Reaction Status Date / Time clindamycin Allergy Unknown unknown Verified 01/02/20 13:03 cyclobenzaprine Allergy Unknown unknown Verified 01/02/20 13:03 fenofibrate [From Tricor] Allergy Unknown Unknown Verified 01/02/20 13:03 gabapentin Allergy Unknown unknown Verified 01/02/20 13:03 gemfibrozil Allergy Unknown unknwon Verified 01/02/20 13:03 hydrocodone Allergy Unknown unknown Verified 01/02/20 13:03 lisinopril Allergy Unknown unknown Verified 01/02/20 13:03 metolazone Allergy Unknown unknown Verified 01/02/20 13:03 niacin Allergy Unknown unknown Verified 01/02/20 13:03 [From Niaspan Extended-Release] Opioids - Morphine Analogues Allergy Unknown unknown Verified 01/02/20 13:03 pantoprazole [From Protonix] Allergy Unknown unknown Verified 01/02/20 13:03 prednisone Allergy Unknown unknown Verified 01/02/20 13:03 PFSH Acute PFSH: Medical History Anemia Ascites ASHD (arteriosclerotic heart disease) Atrial fibrillation Cardiac defibrillator in place Cardiomyopathy CHF (congestive heart failure) CKD (chronic kidney disease) Cystitis Diabetes Hyperlipidemia Hypertension Left ventricular assist device present LVAD (left ventricular assist device) present Mitral regurgitation Pulmonary hypertension Thyroid nodule Surgical History H/O hernia repair H/O thyroidectomy Hx of appendectomy Family History Other CAD (coronary artery disease) Cancer Hypertension Social History Smoking and tobacco status: former smoker Alcohol intake: never Vitals/I&O/Wt Last Vital Signs Temp 97.9 F 01/02/20 18:32 Pulse 70 01/02/20 18:32 Resp 18 01/02/20 18:32 BP 102/76 01/02/20 18:32 Pulse Ox 100 01/02/20 18:32 01/02/20 01/02/20 01/02/20 06:59 14:59 22:59 Intake Total 0 / 0 Output Total 120 / 120 Balance -120 / -120 Weight last 48 hrs Weight 89.267 kg Physical Exam Const: COMMON NORMALS: patient oriented x3 HENMT: COMMON NORMALS: normocephalic, atraumatic, hearing grossly normal bilaterally and external ears normal HEAD & SCALP: normocephalic and atraumatic EXTERNAL EAR: Yes external ears normal Eye: COMMON NORMALS: no scleral icterus GENERAL EYE: appearance normal, both eyes and all related structures Chest: COMMONS NORMALS: normal inspection of the chest and normal palpation of entire chest wall CHEST: Yes Symmetrical chest wall rise Resp: COMMON NORMALS: normal respiratory effort, No retractions, No use of accessory muscles and clear to auscultation bilaterally EFFORT & INSPECTION: Yes symmetric chest movement OTHER: Lung sounds are muffled by the left ventricular assist device Cardio: OTHER: Heart sounds are muzzeled by the left ventricular assist device GI: COMMON NORMALS: Soft to palpation, non-tender, No hepatosplenomegaly present and no masses INSPECTION: Yes abdominal distension AUSCULTATION: Yes normoactive bowel sounds RECTAL EXAM: Yes deferred Extremity: COMMON NORMALS: no clubbing, cyanosis or edema and no pedal edema Neuro: COMMON NORMALS: patient oriented x3 Data : 01/02/20 17:23 01/02/20 16:17 A&P Assessment and plan (1) Lower GI bleed requiring more than 4 units of blood in 24 hours, ICU, or surgery: Patient came in with bright red blood per rectum. Current H&H is 7.4 and 24. He is getting 2 units transfused. We will continue to monitor h/h and transfuse as needed. Given his LVAD: He is always at risk for acquired von Willebrand's disease. The current bleeding can also be due to diverticular bleed. He has history of prior EGD and colonoscopy done report is currently unavailable. Status: Acute (2) Left ventricular assist device present: Status: Acute (3) CHF (congestive heart failure): Currently he is compensated. We will continue with his home medication Status: Acute Qualifiers: Heart failure chronicity: chronic Heart failure type: systolic Qualified Code(s): I50.22 - Chronic systolic (congestive) heart failure (4) Ascites: No abdominal tenderness, no fever, will monitor him for SBP. Ascites is secondary to congestive hepatopathy Status: Acute Qualifiers: Ascites type: other type Qualified Code(s): R18.8 - Other ascites (5) Atrial fibrillation: Currently rate controlled. Continue with metoprolol tartrate 12.5 mg every 12 hours daily Status: Acute Qualifiers: Atrial fibrillation type: longstanding persistent Qualified Code(s): I48.11 - Longstanding persistent atrial fibrillation Attestations Medical Necessity Statement*: needs to be in hospital given his GI bleed. Anticipated stay is more than 2 nights. Coding Level of Care Code Acute Business Division Chair for [facility] Fwd Exam Detailed Diagnoses Lower GI bleed requiring more than 4 units of blood in 24 hours, ICU, or surgery K92.2 Left ventricular assist device present Z95.811 CHF (congestive heart failure) I50.22 Heart failure chronicity: chronic Heart failure type: systolic Ascites R18.8 Ascites type: other type Atrial fibrillation I48.11 Atrial fibrillation type: longstanding persistent
[2020-01-02] MEDS: atorvastatin 40 mg Tablet 20 MG PO (20:16)
[2020-01-02] MEDS: levETIRAcetam 750 MG in sodium chloride 0.9% (100 ml) 100 ML 200 MG IV (20:42)
[2020-01-02 21:51] LABS: Basophils % 0.2 %; Eosinophils # 0.1 10^3/uL (0.0-0.8); Eosinophils % 1.1 %; Hematocrit 26.7 % (42.0-52.0); Hemoglobin 8.5 g/dL (11.7-16.6); Lymphocytes # 0.8 10^3/uL (0.8-4.8); Lymphocytes % 13.3 %; Mean Corpuscular HGB Conc 31.8 g/dL (30.0-36.0); Mean Corpuscular Hemoglobin 32.7 pg (28.0-34.0); Mean Corpuscular Volume 102.7 fL (80-94); Mean Platelet Volume 9.1 fL (7.4-10.4); Monocytes # 0.6 10^3/uL (0.2-0.9); Monocytes % 10.1 %; Neutrophils # 4.15 10^3/uL (1.8-7.7); Neutrophils % 73.9 %; Nucleated Red Blood Cells % 0.7 %; Platelet Count 111 10^3/cmm (130-400); Red Cell Distribution Width 19.4 % (12.1-15.1); White Blood Count 5.6 10^3/uL (4.0-10.0)
[2020-01-02 21:54] LABS: Lactic Acid level (Lactate) 2.1 mmol/L (0.5-2.2)
[2020-01-03] VITALS (18 sets, daily range): BP systolic 91–114; BP diastolic 62–83; PULSE 68–91; RESP 14–18; TEMP 36.4–36.6; O2SAT 90–99
[2020-01-03 05:26] LABS: Basophils % 0.4 %; Eosinophils # 0.1 10^3/uL (0.0-0.8); Eosinophils % 0.9 %; Hematocrit 23.7 % (42.0-52.0); Hemoglobin 7.5 g/dL (11.7-16.6); Lymphocytes # 0.6 10^3/uL (0.8-4.8); Lymphocytes % 12.1 %; Mean Corpuscular HGB Conc 31.6 g/dL (30.0-36.0); Mean Corpuscular Hemoglobin 32.2 pg (28.0-34.0); Mean Corpuscular Volume 101.7 fL (80-94); Mean Platelet Volume 8.9 fL (7.4-10.4); Monocytes # 0.5 10^3/uL (0.2-0.9); Monocytes % 8.9 %; Neutrophils # 4.03 10^3/uL (1.8-7.7); Neutrophils % 76.6 %; Nucleated Red Blood Cells % 0.6 %; Platelet Count 101 10^3/cmm (130-400); Red Blood Count 2.33 10^6/uL (4.1-5.3); Red Cell Distribution Width 19.7 % (12.1-15.1); White Blood Count 5.3 10^3/uL (4.0-10.0)
[2020-01-03 05:44] LABS: Alanine Aminotransferase 9 U/L (0-41); Albumin Level 3.6 g/dL (3.5-5.2); Alkaline Phosphatase 47 IU/L (40-130); Anion Gap 18.1 (5-19); Aspartate Amino Transferase 14 U/L (0-40); Calcium 7.8 mg/dL (8.5-10.5); Carbon Dioxide 21 mmol/L (22-29); Chloride 99 mmol/L (98-107); Glucose 151 mg/dL (65-115); Osmolality Calculated 280 mOsm/kg (285-295); Potassium 5.1 mmol/L (3.5-5.1); Sodium 133 mmol/L (136-145); Total Bilirubin 0.4 mg/dL (0.15-1.2); Total Protein 5.6 g/dL (6.6-8.7)
[2020-01-03 05:54] LABS: Blood Urea Nitrogen 99 mg/dL (8-23)
--- NOTE | 2020-01-03 06:32 | XRR_ITS ---
PROCEDURE INFORMATION: Exam: XR Chest, 1 View Exam date and time: 01/03/2020 12:00 AM Age: 74 years old Clinical indication: Shortness of breath; Additional info: Sob/cough TECHNIQUE: Imaging protocol: XR of the chest Views: 1 view. COMPARISON: CR XR chest 1V portable [id number] 01/02/2020 3:39 PM FINDINGS: Tubes, catheters and devices: Cardiac device present over the left chest with leads over the right atrium and right ventricle. Lungs: Lungs symmetrically expanded with mild linear atelectasis/scarring again noted at the bases. No focal consolidation. No edema. Pleural space: No visualized pleural effusion or pneumothorax. Heart/Mediastinum: Cardiac silhouette mildly enlarged. Partially imaged LVAD. Evidence of CABG. Bones/joints: Unremarkable. XR/XR chest 1V portable [id number] IMPRESSION: No acute findings.
[2020-01-03 07:07] LABS: Glucose Point of Care 184 mg/dL (70-110)
[2020-01-03 08:08] LABS: Magnesium 3.1 mg/dL (1.7-2.3)
[2020-01-03 08:51] LABS: INR 1.25 (0.8-1.2)
[2020-01-03 08:52] LABS: Partial Thromboplastin Time 33.6 SECONDS (23.9-36.7)
[2020-01-03] MEDS: levETIRAcetam 750 MG in sodium chloride 0.9% (100 ml) 100 ML 403 MG IV (08:56)
[2020-01-03] MEDS: isosorbide mononitrate 20 mg Tablet PO ×2 (09:13→17:51)
[2020-01-03] MEDS: allopurinol 100 mg Tablet 150 MG PO (09:13)
[2020-01-03] MEDS: levothyroxine 112 mcg Tablet PO (09:14)
[2020-01-03 10:53] LABS: Glucose Point of Care 279 mg/dL (70-110)
--- NOTE | 2020-01-03 12:48 | PM.PN ---
Subjective Subjective: Interval history: Patient is still having bright red blood per rectum. He has received 2 units of blood so far. Post 2 units of transfusion the hemoglobin was 7.5 repeat CBC in the afternoon showed a mean of 6.6. Our current plan is to give him 2 more units of PRBC. Currently the patient is denying any other complain. His vitals have been stable. Medications: Reviewed: Yes Vitals/I&O/Wt Last Vital Signs Temp 97.8 F 01/03/20 11:19 Pulse 70 01/03/20 11:19 Resp 18 01/03/20 11:19 BP 104/74 01/03/20 11:19 Pulse Ox 90 01/03/20 11:19 01/02/20 01/03/20 01/03/20 22:59 06:59 14:59 Intake Total 457.5 / 457.5 660 / 1117.5 Output Total 120 / 120 100 / 220 350 / 350 Balance 337.5 / 337.5 560 / 897.5 -350 / -350 Weight last 48 hrs Weight 90.974 kg Weight 89.267 kg Physical Exam Const: COMMON NORMALS: patient oriented x3 HENMT: COMMON NORMALS: normocephalic, atraumatic, hearing grossly normal bilaterally and external ears normal HEAD & SCALP: normocephalic and atraumatic EXTERNAL EAR: Yes external ears normal Eye: COMMON NORMALS: no scleral icterus GENERAL EYE: appearance normal, both eyes and all related structures Chest: COMMONS NORMALS: normal inspection of the chest and normal palpation of entire chest wall CHEST: Yes Symmetrical chest wall rise Resp: COMMON NORMALS: normal respiratory effort, No retractions, No use of accessory muscles and clear to auscultation bilaterally EFFORT & INSPECTION: Yes symmetric chest movement AUSCULTATION: clear to auscultation bilaterally OTHER: <del>Respiratory</del> <del>sounds</del> <del>muzzled</del> <del>by</del> <del>the</del> <del>device.</del> Cardio: OTHER: <del>Heart</del> <del>sounds</del> <del>muzzled</del> <del>by</del> <del>the</del> <del>device.</del> GI: COMMON NORMALS: Normal to inspection, nondistended, normoactive bowel sounds present, Soft to palpation, non-tender, No hepatosplenomegaly present and no masses INSPECTION: Yes abdominal distension AUSCULTATION: Yes normoactive bowel sounds PALPATION: Yes Soft to palpation and Yes No hepatosplenomegaly present RECTAL EXAM: Yes deferred Extremity: COMMON NORMALS: no clubbing, cyanosis or edema and no pedal edema OTHER: 3+ pitting edema in bilateral lower extremity Neuro: COMMON NORMALS: patient oriented x3 Data : 01/03/20 14:10 01/03/20 04:30 A&P Assessment and plan (1) Lower GI bleed requiring more than 4 units of blood in 24 hours, ICU, or surgery: Patient is still having bright red blood per rectum. He has received 2 units of blood so far. Post 2 units of transfusion the hemoglobin was 7.5 repeat CBC in the afternoon showed a mean of 6.6. Our current plan is to give him 2 more units of PRBC.Given his LVAD: He is always at risk for acquired von Willebrand's disease. The current bleeding can also be due to diverticular bleed. He has history of prior EGD and colonoscopy done report is currently unavailable. Status: Acute (2) Left ventricular assist device present: Status: Acute (3) CHF (congestive heart failure): Currently he is compensated. We will continue with his home medication Status: Acute Qualifiers: Heart failure chronicity: chronic Heart failure type: systolic Qualified Code(s): I50.22 - Chronic systolic (congestive) heart failure (4) Ascites: No abdominal tenderness, no fever, will monitor him for SBP. Ascites is secondary to congestive hepatopathy Status: Acute Qualifiers: Ascites type: other type Qualified Code(s): R18.8 - Other ascites (5) Atrial fibrillation: Currently rate controlled. Continue with metoprolol tartrate 12.5 mg every 12 hours daily Status: Acute Qualifiers: Atrial fibrillation type: longstanding persistent Qualified Code(s): I48.11 - Longstanding persistent atrial fibrillation Attestations Medical Necessity Statement*: Patient need to be in the hospital. Given his ongoing lower GI bleed. Coding Level of Care Code Acute Otr Driver for [facility] Fwd Exam Detailed Diagnoses Lower GI bleed requiring more than 4 units of blood in 24 hours, ICU, or surgery K92.2 Left ventricular assist device present Z95.811 CHF (congestive heart failure) I50.22 Heart failure chronicity: chronic Heart failure type: systolic Ascites R18.8 Ascites type: other type Atrial fibrillation I48.11 Atrial fibrillation type: longstanding persistent
[2020-01-03 14:18] LABS: Basophils % 0.2 %; Eosinophils # 0.1 10^3/uL (0.0-0.8); Eosinophils % 1.3 %; Hematocrit 21.2 % (42.0-52.0); Hemoglobin 6.6 g/dL (11.7-16.6); Lymphocytes # 0.7 10^3/uL (0.8-4.8); Lymphocytes % 13.9 %; Mean Corpuscular HGB Conc 31.1 g/dL (30.0-36.0); Mean Corpuscular Hemoglobin 32.5 pg (28.0-34.0); Mean Corpuscular Volume 104.4 fL (80-94); Mean Platelet Volume 8.5 fL (7.4-10.4); Monocytes # 0.4 10^3/uL (0.2-0.9); Neutrophils # 3.57 10^3/uL (1.8-7.7); Neutrophils % 75.3 %; Nucleated Red Blood Cells % 0 %; Platelet Count 93 10^3/cmm (130-400); Red Blood Count 2.03 10^6/uL (4.1-5.3); Red Cell Distribution Width 19.9 % (12.1-15.1); White Blood Count 4.7 10^3/uL (4.0-10.0)
[2020-01-03] MEDS: sodium chloride 0.9% (100 ml) 100 ML ×2 (15:09→19:27)
[2020-01-03 17:11] LABS: Glucose Point of Care 196 mg/dL (70-110)
[2020-01-03] MEDS: metoprolol tartrate 25 mg Tablet 12.5 MG PO (17:51)
[2020-01-03] MEDS: bumetanide 1 mg Tablet 8 MG PO (17:52)
--- NOTE | 2020-01-03 20:19 | PM.PN ---
Subjective Subjective: Interval history: In the last 24 hours patient continues to have intermittent bleeding per rectum apart from the bleeding he has not complained of any any dizziness , chest pain ,cough, fever. His current hemoglobin is 6.5 after 2 units of PRBC transfusion. Our plan is to transfuse him another 2 units and continue to monitor hemoglobin. We had a detailed discussion with the family today that if he continues to bleed we will facilitate his transfer to the [facility] in the morning. Medications: Reviewed: Yes Vitals/I&O/Wt Last Vital Signs Temp 97.8 F 01/03/20 19:25 Pulse 71 01/03/20 19:25 Resp 16 01/03/20 19:25 BP 98/68 01/03/20 19:25 Pulse Ox 93 01/03/20 19:25 01/03/20 01/03/20 01/03/20 06:59 14:59 22:59 Intake Total 660 / 1117.5 0 / 0 Output Total 100 / 220 350 / 350 210 / 560 Balance 560 / 897.5 -350 / -350 -210 / -560 Weight last 48 hrs Weight 90.974 kg Weight 89.267 kg Physical Exam Const: COMMON NORMALS: patient oriented x3 HENMT: COMMON NORMALS: normocephalic, atraumatic, hearing grossly normal bilaterally and external ears normal HEAD & SCALP: normocephalic and atraumatic EXTERNAL EAR: Yes external ears normal Eye: COMMON NORMALS: no scleral icterus GENERAL EYE: appearance normal, both eyes and all related structures Chest: COMMONS NORMALS: normal inspection of the chest and normal palpation of entire chest wall CHEST: Yes Symmetrical chest wall rise Resp: COMMON NORMALS: normal respiratory effort, No retractions, No use of accessory muscles and clear to auscultation bilaterally EFFORT & INSPECTION: Yes symmetric chest movement AUSCULTATION: clear to auscultation bilaterally OTHER: Muzzeled by the LVAD Cardio: OTHER: Muzzeled by the LVAD GI: COMMON NORMALS: Normal to inspection, nondistended, normoactive bowel sounds present, Soft to palpation, non-tender and no masses INSPECTION: Yes abdominal distension AUSCULTATION: Yes normoactive bowel sounds PALPATION: Yes Soft to palpation RECTAL EXAM: Yes deferred Extremity: COMMON NORMALS: no clubbing, cyanosis or edema and no pedal edema NARRATIVE EXTREMITY EXAM: B/L 1 + PITTING EDEMA PRESENT OTHER: 3+ pitting edema in bilateral lower extremity Neuro: COMMON NORMALS: patient oriented x3 Data : 01/03/20 14:10 01/03/20 04:30 A&P Assessment and plan (1) Lower GI bleed requiring more than 4 units of blood in 24 hours, ICU, or surgery: Patient is still having bright red blood per rectum. He has received 2 units of blood so far. Post 2 units of transfusion the hemoglobin was 7.5 repeat CBC in the afternoon showed a mean of 6.6. Our current plan is to give him 2 more units of PRBC.Given his LVAD: He is always at risk for acquired von Willebrand's disease. The current bleeding can also be due to diverticular bleed. He has history of prior EGD and colonoscopy done report is currently unavailable. Status: Acute (2) Left ventricular assist device present: Status: Acute (3) CHF (congestive heart failure): Currently he is compensated. We will continue with his home medication Status: Acute Qualifiers: Heart failure type: systolic Heart failure chronicity: chronic Qualified Code(s): I50.22 - Chronic systolic (congestive) heart failure (4) Ascites: No abdominal tenderness, no fever, will monitor him for SBP. Ascites is secondary to congestive hepatopathy Status: Acute Qualifiers: Ascites type: other type Qualified Code(s): R18.8 - Other ascites (5) Atrial fibrillation: Currently rate controlled. Continue with metoprolol tartrate 12.5 mg every 12 hours daily Status: Acute Qualifiers: Atrial fibrillation type: longstanding persistent Qualified Code(s): I48.11 - Longstanding persistent atrial fibrillation Attestations Medical Necessity Statement*: Patient is having ongoing lower GI bleed. 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
[2020-01-03] MEDS: levETIRAcetam 500 mg Tablet 750 MG PO (21:11)
[2020-01-03] MEDS: atorvastatin 40 mg Tablet 20 MG PO (21:11)
[2020-01-03 22:01] LABS: Glucose Point of Care 145 mg/dL (70-110)
[2020-01-03 23:44] LABS: Basophils % 0.4 %; Eosinophils # 0.1 10^3/uL (0.0-0.8); Eosinophils % 1.5 %; Hematocrit 30.2 % (42.0-52.0); Hemoglobin 9.6 g/dL (11.7-16.6); Lymphocytes # 0.9 10^3/uL (0.8-4.8); Lymphocytes % 11.4 %; Mean Corpuscular HGB Conc 31.8 g/dL (30.0-36.0); Mean Corpuscular Hemoglobin 31.6 pg (28.0-34.0); Mean Corpuscular Volume 99.3 fL (80-94); Mean Platelet Volume 9.1 fL (7.4-10.4); Monocytes # 0.5 10^3/uL (0.2-0.9); Monocytes % 6.9 %; Neutrophils # 5.85 10^3/uL (1.8-7.7); Neutrophils % 78.7 %; Nucleated Red Blood Cells % 0.4 %; Platelet Count 129 10^3/cmm (130-400); Red Blood Count 3.04 10^6/uL (4.1-5.3); Red Cell Distribution Width 19.8 % (12.1-15.1); White Blood Count 7.4 10^3/uL (4.0-10.0)
[2020-01-04] VITALS (7 sets, daily range): BP systolic 90–104; BP diastolic 58–78; PULSE 66–91; RESP 12–18; TEMP 36.3–36.6; O2SAT 93–100
[2020-01-04 07:06] LABS: Anion Gap 16.6 (5-19); Blood Urea Nitrogen 79 mg/dL (8-23); Calcium 7.8 mg/dL (8.5-10.5); Carbon Dioxide 19 mmol/L (22-29); Chloride 103 mmol/L (98-107); Glucose 124 mg/dL (65-115); Osmolality Calculated 279 mOsm/kg (285-295); Potassium 4.6 mmol/L (3.5-5.1); Sodium 134 mmol/L (136-145)
[2020-01-04 07:24] LABS: Glucose Point of Care 128 mg/dL (70-110)
[2020-01-04] MEDS: bumetanide 1 mg Tablet 8 MG PO ×2 (07:36→20:39)
[2020-01-04] MEDS: metoprolol tartrate 25 mg Tablet 12.5 MG PO ×2 (07:37→20:38)
[2020-01-04] MEDS: levETIRAcetam 500 mg Tablet 750 MG PO ×2 (07:37→20:39)
[2020-01-04] MEDS: allopurinol 100 mg Tablet 150 MG PO (08:00)
[2020-01-04] MEDS: isosorbide mononitrate 20 mg Tablet PO ×2 (08:00→17:06)
[2020-01-04] MEDS: spironolactone 25 mg Tablet 50 MG PO (08:00)
[2020-01-04] MEDS: levothyroxine 112 mcg Tablet PO (08:00)
[2020-01-04 10:49] LABS: Glucose Point of Care 224 mg/dL (70-110)
--- NOTE | 2020-01-04 11:05 | P.PN_ITS ---
Subjective Subjective: Interval history: Patient was more pleasant this morning. He was sitting in the chair. Has not complained of any episode of lower GI bleed. Post 4 units PRBC transfusion his hemoglobin is 9.6. Diet has been advanced. We will continue to monitor hemoglobin and if no further episodes of lower GI bleed. We will plan to discharge him tomorrow. Medications: Reviewed: Yes Vitals/I&O/Wt Last Vital Signs Temp 97.6 F 01/04/20 07:52 Pulse 68 01/04/20 07:52 Resp 18 01/04/20 07:52 BP 95/78 01/04/20 07:52 Pulse Ox 96 01/04/20 04:00 01/03/20 01/04/20 01/04/20 22:59 06:59 14:59 Intake Total 350 / 350 360 / 360 Output Total 210 / 560 150 / 710 380 / 380 Balance 140 / -210 -150 / -360 -20 / -20 Weight last 48 hrs Weight 90.974 kg Weight 89.267 kg Physical Exam Const: COMMON NORMALS: patient oriented x3 HENMT: COMMON NORMALS: normocephalic, atraumatic, hearing grossly normal bilaterally and external ears normal HEAD & SCALP: normocephalic and atraumatic EXTERNAL EAR: Yes external ears normal Eye: COMMON NORMALS: no scleral icterus GENERAL EYE: appearance normal, both eyes and all related structures Chest: COMMONS NORMALS: normal inspection of the chest and normal palpation of entire chest wall CHEST: Yes Symmetrical chest wall rise Resp: COMMON NORMALS: normal respiratory effort, No retractions, No use of accessory muscles and clear to auscultation bilaterally EFFORT & INSPECTION: Yes symmetric chest movement AUSCULTATION: clear to auscultation bilaterally OTHER: Muzzeled by the LVAD Cardio: COMMON NORMALS: regular rate, regular rhythm, S1 normal heart sound present, S2 normal heart sound present, No gallops present (Cardio), No murmurs present (Cardio), No rub (Cardio) and Peripheral pulses 2+ throughout RATE: regular rate RHYTHM: regular rhythm HEART SOUNDS: S1 normal heart sound pr esent and S2 normal heart sound present PERIPHERAL PULSES: Peripheral pulses 2+ throughout OTHER: Muzzeled by the LVAD GI: COMMON NORMALS: Normal to inspection, nondistended, normoactive bowel sounds present, Soft to palpation, non-tender, No hepatosplenomegaly present and no masses INSPECTION: Yes abdominal distension AUSCULTATION: Yes normoactive bowel sounds PALPATION: Yes Soft to palpation and Yes No hepatosplenomegaly present RECTAL EXAM: Yes deferred Extremity: COMMON NORMALS: no clubbing, cyanosis or edema and no pedal edema NARRATIVE EXTREMITY EXAM: B/L 1 + PITTING EDEMA PRESENT OTHER: 3+ pitting edema in bilateral lower extremity Neuro: COMMON NORMALS: patient oriented x3 Data : 01/03/20 23:15 01/04/20 05:13 A&P Assessment and plan (1) Lower GI bleed requiring more than 4 units of blood in 24 hours, ICU, or surgery: Patient is still having bright red blood per rectum. He has received 2 units of blood so far. Post 2 units of transfusion the hemoglobin was 7.5 repeat CBC in the afternoon showed a mean of 6.6. Our current plan is to give him 2 more units of PRBC.Given his LVAD: He is always at risk for acquired von Willebrand's disease. The current bleeding can also be due to diverticular bleed. He has history of prior EGD and colonoscopy done report is currently unavailable. Status: Acute (2) Left ventricular assist device present: Status: Acute (3) CHF (congestive heart failure): Currently he is compensated. We will continue with his home medication Status: Acute Qualifiers: Heart failure type: systolic Heart failure chronicity: chronic Qualified Code(s): I50.22 - Chronic systolic (congestive) heart failure (4) Ascites: No abdominal tenderness, no fever, will monitor him for SBP. Ascites is secondary to congestive hepatopathy Status: Acute Qualifiers: Ascites type: other type Qualified Code(s): R18.8 - Other ascites (5) Atrial fibrillation: Currently rate controlled. Continue with metoprolol tartrate 12.5 mg every 12 hours daily Status: Acute Qualifiers: Atrial fibrillation type: longstanding persistent Qualified Code(s): I48.11 - Longstanding persistent atrial fibrillation Attestations Medical Necessity Statement*: Patient needs to stay in hospital for management of lower GI bleed Coding Level of Care Code Acute Customer Quality Specialist for [facility] Fwd Diagnoses Lower GI bleed requiring more than 4 units of blood in 24 hours, ICU, or surgery K92.2 Left ventricular assist device present Z95.811 CHF (congestive heart failure) I50.22 Heart failure type: systolic Heart failure chronicity: chronic Ascites R18.8 Ascites type: other type Atrial fibrillation I48.11 Atrial fibrillation type: longstanding persistent
[2020-01-04 16:44] LABS: Glucose Point of Care 119 mg/dL (70-110)
[2020-01-04 21:31] LABS: Glucose Point of Care 224 mg/dL (70-110)
[2020-01-04] MEDS: atorvastatin 40 mg Tablet 20 MG PO (21:41)
[2020-01-05] VITALS (9 sets, daily range): BP systolic 88–126; BP diastolic 64–90; PULSE 69–80; RESP 15–20; TEMP 36.2–36.8; O2SAT 94–99
[2020-01-05 06:12] LABS: Basophils % 0.4 %; Eosinophils # 0.1 10^3/uL (0.0-0.8); Eosinophils % 1.3 %; Hematocrit 27.7 % (42.0-52.0); Hemoglobin 8.8 g/dL (11.7-16.6); Lymphocytes # 0.6 10^3/uL (0.8-4.8); Lymphocytes % 10.5 %; Mean Corpuscular HGB Conc 31.8 g/dL (30.0-36.0); Mean Corpuscular Hemoglobin 31.5 pg (28.0-34.0); Mean Corpuscular Volume 99.3 fL (80-94); Monocytes # 0.5 10^3/uL (0.2-0.9); Monocytes % 8.8 %; Neutrophils # 4.35 10^3/uL (1.8-7.7); Neutrophils % 77.6 %; Nucleated Red Blood Cells # 0.1 /100WBC; Nucleated Red Blood Cells % 0.9 %; Platelet Count 98 10^3/cmm (130-400); Red Blood Count 2.79 10^6/uL (4.1-5.3); Red Cell Distribution Width 19.7 % (12.1-15.1); White Blood Count 5.6 10^3/uL (4.0-10.0)
[2020-01-05 06:44] LABS: Anion Gap 19.3 (5-19); Calcium 7.6 mg/dL (8.5-10.5); Carbon Dioxide 20 mmol/L (22-29); Chloride 97 mmol/L (98-107); Glucose 96 mg/dL (65-115); Osmolality Calculated 274 mOsm/kg (285-295); Potassium 4.3 mmol/L (3.5-5.1); Sodium 132 mmol/L (136-145)
[2020-01-05 07:05] LABS: Blood Urea Nitrogen 82 mg/dL (8-23)
[2020-01-05] MEDS: bumetanide 1 mg Tablet 8 MG PO (07:57)
[2020-01-05] MEDS: levETIRAcetam 500 mg Tablet 750 MG PO (07:58)
[2020-01-05] MEDS: metoprolol tartrate 25 mg Tablet 12.5 MG PO (07:58)
[2020-01-05] MEDS: isosorbide mononitrate 20 mg Tablet PO ×2 (08:00→17:15)
[2020-01-05] MEDS: spironolactone 25 mg Tablet 50 MG PO (08:00)
[2020-01-05] MEDS: levothyroxine 112 mcg Tablet PO (08:00)
[2020-01-05] MEDS: allopurinol 100 mg Tablet 150 MG PO (08:01)
[2020-01-05 08:18] LABS: Glucose Point of Care 117 mg/dL (70-110)
[2020-01-05 11:30] LABS: Glucose Point of Care 182 mg/dL (70-110)
--- NOTE | 2020-01-05 12:10 | PC.RESP ---
Pulmonary Rehab information sent to patient.
--- NOTE | 2020-01-05 16:13 | PM.DCS ---
Discharge Providers Date of Admission: 01/03/20 08:32 Date of Discharge: January 05, 2020 Attending Provider at Admission: Abhay Moore MD Attending Provider at Discharge: Abhay Moore MD Primary Care Provider: Jesus Rodriguez MD Diagnoses at Discharge Discharge Diagnosis (1) Lower GI bleed requiring more than 4 units of blood in 24 hours, ICU, or surgery: Status: Resolved (2) Left ventricular assist device present: Status: Acute (3) CHF (congestive heart failure): Status: Chronic Qualifiers: Heart failure chronicity: chronic Heart failure type: systolic Qualified Code(s): I50.22 - Chronic systolic (congestive) heart failure (4) Ascites: Status: Acute Qualifiers: Ascites type: other type Qualified Code(s): R18.8 - Other ascites (5) Atrial fibrillation: Status: Chronic Qualifiers: Atrial fibrillation type: longstanding persistent Qualified Code(s): I48.11 - Longstanding persistent atrial fibrillation Reason for Visit Reason for Visit: RECTAL BLEED Hospital Course Hospital Course: Marvel Haddad is a 74 year old male with past medical history of coronary artery disease, heart failure with reduced ejection secondary to ischemic cardiomyopathy on LVAD (2013) for the last 6 years, hypothyroidism, diabetes type 2, gout, seizure disorder, cardiorenal syndrome, came in with chief complaint of having bright red blood per rectum. He was managed conservatively he received 4 units of packed red blood cell transfusion. At the time of discharge bright red blood per rectum has completely stopped. His all other comorbid conditions were well taking care of. He will continue to follow-up with his regular physician. Physical Exam Narrative: EXAM NARRATIVE: Const COMMON NORMALS: patient oriented x3 [facility] COMMON NORMALS: normocephalic, atraumatic, hearing grossly normal bilaterally and external ears normal HEAD & SCALP: normocephalic and atraumatic EXTERNAL EAR: Yes external ears normal Eye COMMON NORMALS: no scleral icterus GENERAL EYE: appearance normal, both eyes and all related structures Chest COMMONS NORMALS: normal inspection of the chest and normal palpation of entire chest wall CHEST: Yes Symmetrical chest wall rise Resp COMMON NORMALS: normal respiratory effort, No retractions, No use of accessory muscles and clear to auscultation bilaterally EFFORT & INSPECTION: Yes symmetric chest movement AUSCULTATION: clear to auscultation bilaterally OTHER: Muzzeled by the LVAD Cardio COMMON NORMALS: regular rate, regular rhythm, S1 normal heart sound present, S2 normal heart sound present, No gallops present (Cardio), No murmurs present (Cardio), No rub (Cardio) and Peripheral pulses 2+ throughout RATE: regular rate RHYTHM: regular rhythm HEART SOUNDS: S1 normal heart sound present and S2 normal heart sound present PERIPHERAL PULSES: Peripheral pulses 2+ throughout OTHER: Muzzeled by the LVAD GI COMMON NORMALS: Normal to inspection, nondistended, normoactive bowel sounds present, Soft to palpation, non-tender, No hepatosplenomegaly present and no masses INSPECTION: Yes abdominal distension AUSCULTATION: Yes normoactive bowel sounds PALPATION: Yes Soft to palpation and Yes No hepatosplenomegaly present RECTAL EXAM: Yes deferred Extremity COMMON NORMALS: no clubbing, cyanosis or edema and no pedal edema NARRATIVE EXTREMITY EXAM: B/L 1 + PITTING EDEMA PRESENT OTHER: 2+ pitting edema in bilateral lower extremity Neuro COMMON NORMALS: patient oriented x3 Discharge Data Data Completed and Pending: Completed Studies During Hospitalization Category Date Time Status CT abdomen pelvis wo con [id number] Urge nt Cat Scan 01/02/20 15:33 Completed XR chest 1V rupesh ble [id number] Routine Exams 01/03/20 06:32 Completed XR chest 1V rupesh ble [id number] Stat Exams 01/02/20 15:34 Completed Pending at discharge Category Date Time Status CBC Auto Diff [Co mplete Blood Count w/Auto] AM LABS Lab 01/04/20 04:00 Ordered Labs from last 24 hours 01/05/20 01/05/20 01/05/20 11:14 08:05 04:31 WBC 5.6 RBC 2.79 L Hgb 8.8 L Hct 27.7 L MCV 99.3 H MCH 31.5 MCHC 31.8 RDW 19.7 H Plt Count 98 L MPV 9.0 Neut % (Auto) 77.6 Lymph % (Auto) 10.5 [place] % (Auto) 8.8 Eos % (Auto) 1.3 Baso % (Auto) 0.4 Neut # (Auto) 4.35 Lymph # (Auto) 0.6 L [place] # (Auto) 0.5 Eos # (Auto) 0.1 Baso # (Auto) 0.0 Nucleated RBC % (a uto) 0.9 Nucleated RBCs # 0.1 Sodium Potassium Chloride Carbon Dioxide Anion Gap BUN Creatinine GFR Calculation Glucose POC Glucose 182 117 Calculated Osmolal ity Calcium 01/05/20 01/04/20 01/04/20 04:31 20:51 16:27 WBC RBC Hgb Hct MCV MCH MCHC RDW Plt Count MPV Neut % (Auto) Lymph % (Auto) [place] % (Auto) Eos % (Auto) Baso % (Auto) Neut # (Auto) Lymph # (Auto) [place] # (Auto) Eos # (Auto) Baso # (Auto) Nucleated RBC % (a uto) Nucleated RBCs # Sodium 132 L Potassium 4.3 Chloride 97 L Carbon Dioxide 20 L Anion Gap 19.3 H BUN 82 H* Creatinine 2.9 H GFR Calculation Not Reportable Glucose 96 POC Glucose 224 119 Calculated Osmolal ity 274 L Calcium 7.6 L Vitals: Last Vital Signs Temp 97.6 F 01/05/20 15:46 Pulse 75 01/05/20 15:46 Resp 16 01/05/20 15:46 BP 103/81 01/05/20 15:46 Pulse Ox 98 01/05/20 15:46 Discharge Plan Discharge Patient Disposition: Home Condition: Stable Prescriptions: Continued levothyroxine 112 mcg capsule 112 mcg PO DAILY RF: 0 acetaminophen [Tylenol] 325 mg tablet 325 mg PO Q6H PRN (Reason: Pain) RF: 0 nitroglycerin [Nitrostat] 0.4 mg tablet, sublingual 0.4 mg SUBLINGUAL Q5M PRN (Reason: Chest Pain) RF: 0 rosuvastatin [Crestor] 20 mg tablet 20 mg PO DAILY RF: 0 polyethylene glycol 3350 [Miralax] 17 gram/dose powder 17 gm PO DAILY RF: 0 spironolactone 50 mg tablet 50 mg PO DAILY RF: 0 metoprolol succinate 25 mg tablet extended release 24 hr 25 mg PO DAILY RF: 0 isosorbide mononitrate 60 mg tablet extended release 24 hr 90 mg PO DAILY RF: 0 bumetanide 2 mg tablet 8 mg PO BID RF: 0 folic acid 1 mg tablet 2 mg PO DAILY RF: 0 Lantus U-100 Insulin 100 unit/mL solution 20 unit SUBCUT DAILY RF: 0 allopurinol 300 mg tablet 150 mg PO DAILY RF: 0 potassium chloride 20 mEq tablet extended release 40 meq PO BID RF: 0 insulin aspart U-100 [Novolog U-100 Insulin aspart] 100 unit/mL solution See Rx Instructions .ROUTE .COMPLEX RF: 0 amoxicillin 500 mg tablet 500 mg PO BID RF: 0 ferrous gluconate 324 mg (38 mg iron) tablet 324 mg PO DAILY RF: 0 levetiracetam [Keppra] 750 mg tablet 750 mg PO BID RF: 0 sulfamethoxazole-trimethoprim [Bactrim DS] 800-160 mg tablet 1 tab PO DAILY RF: 0 ondansetron HCl [Zofran] 4 mg Tablet 4 mg PO Q6H PRN (Reason: Nausea) RF: 0 tramadol 50 mg tablet 50 mg PO BEDTIME PRN (Reason: Pain) RF: 0 Discharge Orders: Discharge Order (Routine); Ordered 01/05/20 Ordered By: Abhay Moore Discharge Diet: Usual diet Discharge Activity: Resume usual activity Discharge Attestations Time Spent in Discharge Care*: greater than 30 min Specific Discharge Activities: Specific discharge activities: educating patient, discussing with pcp/other providers, discussing with oil field caser/social workers/dc planners, documenting/other paperwork and evaluating patient/reviewing data Quality Metrics Clinical Quality Measures During this hospital stay, did patient experience: None Coding Level of Care Code Acute Fabrication Mig Welder for [facility] Fwd Diagnoses Lower GI bleed requiring more than 4 units of blood in 24 hours, ICU, or surgery K92.2 Left ventricular assist device present Z95.811 CHF (congestive heart failure) I50.22 Heart failure chronicity: chronic Heart failure type: systolic Ascites R18.8 Ascites type: other type Atrial fibrillation I48.11 Atrial fibrillation type: longstanding persistent
== END 2020-01-05 17:30 | disposition home or self-care (01) | DRG 378 ==
LOC: ER 16:33 → MEDSURG 17:39
PROVIDERS: Family Medicine; Admitting Provider Internal Medicine; PCP Family Medicine; Visit Provider Internal Medicine
DX: K92.2 Gastrointestinal hemorrhage, unspecified (principal); Z95.811 Presence of heart assist device; I13.0 Hypertensive heart and chronic kidney disease with heart failure and stage 1 through stage 4 chronic kidney disease, or unspecified chronic kidney disease; I50.22 Chronic systolic (congestive) heart failure; R18.8 Other ascites; I48.11 Longstanding persistent atrial fibrillation; D64.9 Anemia, unspecified; I25.10 Atherosclerotic heart disease of native coronary artery without angina pectoris; I25.5 Ischemic cardiomyopathy; E03.9 Hypothyroidism, unspecified; N18.9 Chronic kidney disease, unspecified; E11.22 Type 2 diabetes mellitus with diabetic chronic kidney disease; M10.9 Gout, unspecified; G40.909 Epilepsy, unspecified, not intractable, without status epilepticus; K76.89 Other specified diseases of liver; E78.5 Hyperlipidemia, unspecified; I34.0 Nonrheumatic mitral (valve) insufficiency; E04.1 Nontoxic single thyroid nodule; Z87.891 Personal history of nicotine dependence
CPT/HCPCS: 12345; 36415; 36416; 36430; 49083; 71045; 74176; 80048; 80053; 81003; 82140; 82550; 82962; 83540; 83550; 83605; 83690; 83735; 85025; 85610; 85730; 86850; 86900; 86920; 96372; 96375; 99281; 99282; 99283; G0378; J1815; J1953; J2405; P9016

== ENCOUNTER 2020-01-07 09:32 | Outpatient (CLI) | payer MEDICARE, OTHER, SELFPAY ==
[2020-01-07 10:37] LABS: Basophils % 0.3 %; Eosinophils # 0.1 10^3/uL (0.0-0.8); Eosinophils % 0.9 %; Hematocrit 27.7 % (42.0-52.0); Hemoglobin 8.5 g/dL (11.7-16.6); Lymphocytes # 0.8 10^3/uL (0.8-4.8); Lymphocytes % 11.7 %; Mean Corpuscular HGB Conc 30.7 g/dL (30.0-36.0); Mean Corpuscular Hemoglobin 32.1 pg (28.0-34.0); Mean Corpuscular Volume 104.5 fL (80-94); Mean Platelet Volume 8.9 fL (7.4-10.4); Monocytes # 0.5 10^3/uL (0.2-0.9); Monocytes % 6.7 %; Neutrophils # 5.52 10^3/uL (1.8-7.7); Neutrophils % 79.1 %; Nucleated Red Blood Cells % 0.6 %; Platelet Count 96 10^3/cmm (130-400); Red Blood Count 2.65 10^6/uL (4.1-5.3); Red Cell Distribution Width 19.9 % (12.1-15.1)
[2020-01-07 11:06] LABS: Thyroid Stimulating Hormone 5.82 uIU/mL (0.27-4.20)
[2020-01-07 11:16] LABS: Calcium 7.9 mg/dL (8.5-10.5); Parathyroid Hormone 188.8 pg/mL (15-65)
[2020-01-07 11:17] LABS: Alanine Aminotransferase 13 U/L (0-41); Albumin Level 3.8 g/dL (3.5-5.2); Alkaline Phosphatase 87 IU/L (40-130); Anion Gap 19.2 (5-19); Aspartate Amino Transferase 20 U/L (0-40); Blood Urea Nitrogen 63 mg/dL (8-23); Calcium 8.1 mg/dL (8.5-10.5); Carbon Dioxide 23 mmol/L (22-29); Chloride 97 mmol/L (98-107); Chol HDL Ratio 2.13 mg/dL (1.0-5.00); Cholesterol 64 mg/dL (0-200); Globulin 2.5 g/dL (1.3-4.6); Glucose 60 mg/dL (65-115); HDL Cholesterol 30 mg/dL (60-100); LDL Cholesterol Calculated 0 mg/dL (50-129); Lactate Dehydrogenase 201 U/L (135-225); Osmolality Calculated 277 mOsm/kg (285-295); Phosphorus 3.7 mg/dL (2.5-4.5); Potassium 4.2 mmol/L (3.5-5.1); Sodium 135 mmol/L (136-145); Total Bilirubin 0.4 mg/dL (0.15-1.2); Total Protein 6.3 g/dL (6.6-8.7); Triglycerides 168 mg/dL (0-150)
[2020-01-07 11:18] LABS: Add Urine Microscopic? YES; Bilirubin Urine Neg (Negative); Blood Urine Neg (Negative); Glucose Urine UA Norm (Normal); Ketones Urine Negative (Negative); Leukocyte Esterase Urine 1+ (Negative); Nitrate Urine Negative (Negative); Protein Urine Neg (Negative); Specific Gravity, Urine 1.005 (1.005-1.030); Urine Appearance Clear (CLEAR); Urine Color Straw (Yellow); Urobilinogen Urine Norm (Negative); pH Urine 6.5 (5-7)
[2020-01-07 11:19] LABS: RBC Urine 0-4 /hpf (0-2)
[2020-01-07 11:20] LABS: Add Urine Culture? Yes; Bacteria Urine 2+ /hpf; Hyaline Casts Urine 0-4 /lpf; WBC Urine 15-25 /hpf (0-5)
[2020-01-07 11:59] LABS: 25 Hydroxy Vitamin D 44 ng/mL (30-100)
[2020-01-07 17:06] LABS: Estmated Average Glucose 97
== END 2020-01-07 09:33 | disposition home or self-care (01) ==
LOC: LAB 09:38
PROVIDERS: Absent Provider Internal Medicine Medical Oncology; PCP Family Medicine; Visit Provider Emergency Medicine Emergency Medical Services
DX: I48.91 Unspecified atrial fibrillation (principal); E78.5 Hyperlipidemia, unspecified; I11.0 Hypertensive heart disease with heart failure; I50.9 Heart failure, unspecified; N18.4 Chronic kidney disease, stage 4 (severe); E03.9 Hypothyroidism, unspecified; D62 Acute posthemorrhagic anemia; E11.9 Type 2 diabetes mellitus without complications
CPT/HCPCS: 80053; 80061; 80069; 81001; 82306; 82310; 83036; 83615; 83970; 84153; 84443; 85025

== ENCOUNTER 2020-01-12 07:48 | Outpatient (CLI) | payer MEDICARE, OTHER, SELFPAY ==
[2020-01-12 08:21] LABS: Basophils % 0.2 %; Eosinophils # 0.1 10^3/uL (0.0-0.8); Eosinophils % 1.2 %; Hematocrit 29.1 % (42.0-52.0); Hemoglobin 8.8 g/dL (11.7-16.6); Lymphocytes # 0.5 10^3/uL (0.8-4.8); Lymphocytes % 10.1 %; Mean Corpuscular HGB Conc 30.2 g/dL (30.0-36.0); Mean Corpuscular Hemoglobin 32.5 pg (28.0-34.0); Mean Corpuscular Volume 107.4 fL (80-94); Mean Platelet Volume 9.1 fL (7.4-10.4); Monocytes # 0.3 10^3/uL (0.2-0.9); Monocytes % 5.7 %; Neutrophils # 4.07 10^3/uL (1.8-7.7); Neutrophils % 80.6 %; Nucleated Red Blood Cells % 0.6 %; Platelet Count 114 10^3/cmm (130-400); Red Blood Count 2.71 10^6/uL (4.1-5.3); Red Cell Distribution Width 19.8 % (12.1-15.1); White Blood Count 5.1 10^3/uL (4.0-10.0)
[2020-01-12 08:42] LABS: Alanine Aminotransferase 30 U/L (0-41); Albumin Level 3.8 g/dL (3.5-5.2); Alkaline Phosphatase 99 IU/L (40-130); Anion Gap 17.1 (5-19); Aspartate Amino Transferase 34 U/L (0-40); Blood Urea Nitrogen 66 mg/dL (8-23); Calcium 8.5 mg/dL (8.5-10.5); Carbon Dioxide 21 mmol/L (22-29); Chloride 96 mmol/L (98-107); Globulin 2.6 g/dL (1.3-4.6); Glucose 181 mg/dL (65-115); Lactate Dehydrogenase 240 U/L (135-225); Osmolality Calculated 292 mOsm/kg (285-295); Potassium 5.1 mmol/L (3.5-5.1); Sodium 129 mmol/L (136-145); Total Bilirubin 0.4 mg/dL (0.15-1.2); Total Protein 6.4 g/dL (6.6-8.7)
== END 2020-01-12 07:49 | disposition home or self-care (01) ==
LOC: LAB 07:50
PROVIDERS: PCP Family Medicine; Visit Provider Internal Medicine
DX: Z95.811 Presence of heart assist device (principal)
CPT/HCPCS: 36415; 80053; 83615; 85025

== ENCOUNTER 2020-01-14 07:15 | Outpatient (CLI) | payer MEDICARE, OTHER, SELFPAY ==
--- NOTE | 2020-01-14 07:30 | US_ITS ---
WS: [id number] ULTRASOUND ABDOMEN LIMITED CLINICAL INFORMATION: I50.9 COMPARISON: December 15, [address] January 02, 2020 FINDINGS/IMPRESSION: Inadequate volume for paracentesis.
== END 2020-01-14 07:16 | disposition home or self-care (01) ==
LOC: RAD 07:21
PROVIDERS: PCP Family Medicine; Visit Provider Internal Medicine
DX: I50.9 Heart failure, unspecified (principal)
CPT/HCPCS: 76705

== ENCOUNTER 2020-01-17 10:49 | Inpatient (IN) | payer MEDICARE, OTHER, SELFPAY ==
[2020-01-17] VITALS (33 sets, daily range): BP systolic 75–98; BP diastolic 53–81; PULSE 69–90; RESP 12–21; TEMP 36.2–37.1; O2SAT 77–100; BMI 31.1
--- NOTE | 2020-01-17 11:21 | W.ED.ABDPA2 ---
HPI - Abdominal Pain General: Chief Complaint: Abdominal Pain Stated Complaint: BLOOD IN STOOL Time Seen by Provider: 01/17/20 10:59 History of Present Illness: HPI narrative: 74-year-old male presents emergency room with complaint of hematochezia. He has had this recurrently. 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 He has a little bit of mild left lower quadrant pain that began yesterday. Initially had loose stools and diarrhea then last evening it began to turn bloody. He has been a little bit lightheaded and dizzy and a little more easily fatigued than usual. MD elicited complaint: abdominal pain Pertinent past history: diverticulitis and gastrointestinal bleeding Onset (ago): day(s) Pain Consistency: constant Location: LLQ Severity: moderate Quality: cramping Radiation: none Migration to: no migration Exacerbating factors: eating and bowel movement Relieving factors: rest Associated Symptoms: Reports anorexia, bloating, change in stool character, GI cramping, diarrhea, hematochezia, loose stools, nausea, poor appetite and vomiting; Denies chills, coffee ground emesis, constipation, dyspepsia, dysuria, excessive flatus, fever(s), heartburn, hematuria, hematemesis, fecal incontinence, melena and syncope Review of Systems Const: Denies: fever(s) or chills ENMT: Denies: throat pain, ear or mastoid pain, nasal discharge or nasal congestion Card: Denies: syncope Resp: Denies: dyspnea, productive cough or non-productive cough GI: Reports: nausea, vomiting, diarrhea, bloating, GI cramping, change in stool character and hematochezia; Denies: hematemesis, coffee ground emesis, heartburn, constipation, excessive flatus, fecal incontinence or melena : Denies: dysuria or hematuria Skin/Breast: Denies: rash or pruritus PFSH ED PFSH: Medical History (Updated 01/18/20 @ 09:09 by Riley Magana MD) Anemia Ascites ASHD (arteriosclerotic heart disease) Atrial fibrillation Cardiac defibrillator in place Cardiomyopathy CHF (congestive heart failure) Cholecystectomy planned Chronic antibiotic suppression CKD (chronic kidney disease) Cystitis Diabetes Hyperlipidemia Hypertension Hypothyroidism Left ventricular assist device present Lower GI bleed requiring more than 4 units of blood in 24 hours, ICU, or surgery LVAD (left ventricular assist device) present Mitral regurgitation Pulmonary hypertension Seizure disorder Thyroid nodule Surgical History H/O hernia repair H/O knee surgery H/O thyroidectomy Hx of appendectomy Family History Other CAD (coronary artery disease) Cancer Hypertension Social History Smoking and tobacco status: former smoker Alcohol intake: never Substance/Drug Use: never Lives independently: No Household members: spouse Marital status: Physical Exam Const: COMMON NORMALS: no acute distress GENERAL APPEARANCE: cooperative and comfortable ORIENTATION/CONSCIOUSNESS: Yes awake, Yes oriented to person, Yes oriented to place and Yes oriented to time HENMT: COMMON NORMALS: normocephalic, atraumatic and hearing grossly normal bilaterally HEAD & SCALP: normocephalic and atraumatic Resp: COMMON NORMALS: normal respiratory effort, No retractions, No use of accessory muscles and clear to auscultation bilaterally AUSCULTATION: clear to auscultation bilaterally OTHER: Breath sounds partially obscured by mechanical sounds of the LVAD Cardio: OTHER: Continuous mechanical sound of the LVAD no identifiable heart sounds GI: COMMON NORMALS: Soft to palpation and No hepatosplenomegaly present AUSCULTATION: Yes normoactive bowel sounds PALPATION: Yes Soft to palpation, No Tenderness to palpation present (GI), No Guarding due to palpation present (GI) and Yes No hepatosplenomegaly present Extremity: COMMON NORMALS: normal to inspection, capillary refill normal, no clubbing, cyanosis or edema, no calf tenderness and no pedal edema Neuro: SENSORIUM/ORIENTATION: Yes oriented to person, Yes oriented to place and Yes oriented to time Skin: COMMON NORMALS: no rashes or lesions noted GENERAL SKIN EXAM: no rashes or lesions noted Course Vital Signs: Vital signs: Vital Signs Temperature 98.1 F 01/18/20 12:38 Pulse Rate 71 01/18/20 12:00 Respiratory Rate 19 H 01/18/20 12:00 Blood Pressure 81/67 01/18/20 12:31 Pulse Oximetry 99 01/18/20 12:31 MDM - Abdominal Pain MDM Narrative: Medical decision making narrative: Patient has had frequent admissions for GI blood loss. Generally we just replenish the blood until he is stable again. We will repeat this again discussed with the hospitalist orders are written Lab Data: Labs: Lab Results 01/17/20 01/17/20 01/17/20 Range/Units 11:26 11:26 11:26 WBC 5.6 (4.0-10.0) 10^3/ uL RBC 1.87 L (4.1-5.3) 10^6/u L Hgb 6.1 L* (11.7-16.6) g/dL Hct 20.3 L* (42.0-52.0) % MCV 108.6 H (80-94) fL MCH 32.6 (28.0-34.0) pg MCHC 30.0 (30.0-36.0) g/dL RDW 19.9 H (12.1-15.1) % Plt Count 105 L (130-400) 10^3/c mm MPV 9.0 (7.4-10.4) fL Neut % (Auto) 83.6 % Lymph % (Auto) 8.0 % Johnson % (Auto) 5.4 % Eos % (Auto) 0.5 % Baso % (Auto) 0.2 % Neut # (Auto) 4.68 (1.8-7.7) 10^3/u L Lymph # (Auto) 0.5 L (0.8-4.8) 10^3/u L Johnson # (Auto) 0.3 (0.2-0.9) 10^3/u L Eos # (Auto) 0.0 (0.0-0.8) 10^3/u L Baso # (Auto) 0.0 (0.0-0.1) 10^3/u L Nucleated RBC % (a uto) 0.5 % Nucleated RBCs # 0.0 /100WBC PT 16.00 H (12.1-14.9) SECO NDS INR 1.24 H (0.8-1.2) APTT 33.7 (23.9-36.7) SECO NDS Sodium 128 L (136-145) mmol/L Potassium 4.7 (3.5-5.1) mmol/L Chloride 94 L (98-107) mmol/L Carbon Dioxide 17 L (22-29) mmol/L Anion Gap 21.7 H (5-19) BUN 75 H (8-23) mg/dL Creatinine 3.9 H (0.7-1.2) mg/dL GFR Calculation Not Reportable Glucose 170 H (65-115) mg/dL Calculated Osmolal ity 292 (285-295) mOsm/k g Calcium 7.8 L (8.5-10.5) mg/dL Total Bilirubin 0.3 (0.15-1.2) mg/dL AST 16 (0-40) U/L ALT 14 (0-41) U/L Alkaline Phosphata se 65 (40-130) IU/L Total Protein 5.4 L (6.6-8.7) g/dL Albumin 3.4 L (3.5-5.2) g/dL Globulin 2.0 (1.3-4.6) g/dL Blood Type Rho(D) Type Antibody Screen Crossmatch 01/17/20 Range/Units 11:26 WBC (4.0-10.0) 10^3/ uL RBC (4.1-5.3) 10^6/u L Hgb (11.7-16.6) g/dL Hct (42.0-52.0) % MCV (80-94) fL MCH (28.0-34.0) pg MCHC (30.0-36.0) g/dL RDW (12.1-15.1) % Plt Count (130-400) 10^3/c mm MPV (7.4-10.4) fL Neut % (Auto) % Lymph % (Auto) % Johnson % (Auto) % Eos % (Auto) % Baso % (Auto) % Neut # (Auto) (1.8-7.7) 10^3/u L Lymph # (Auto) (0.8-4.8) 10^3/u L Johnson # (Auto) (0.2-0.9) 10^3/u L Eos # (Auto) (0.0-0.8) 10^3/u L Baso # (Auto) (0.0-0.1) 10^3/u L Nucleated RBC % (a uto) % Nucleated RBCs # /100WBC PT (12.1-14.9) SECO NDS INR (0.8-1.2) APTT (23.9-36.7) SECO NDS Sodium (136-145) mmol/L Potassium (3.5-5.1) mmol/L Chloride (98-107) mmol/L Carbon Dioxide (22-29) mmol/L Anion Gap (5-19) BUN (8-23) mg/dL Creatinine (0.7-1.2) mg/dL GFR Calculation Glucose (65-115) mg/dL Calculated Osmolal ity (285-295) mOsm/k g Calcium (8.5-10.5) mg/dL Total Bilirubin (0.15-1.2) mg/dL AST (0-40) U/L ALT (0-41) U/L Alkaline Phosphata se (40-130) IU/L Total Protein (6.6-8.7) g/dL Albumin (3.5-5.2) g/dL Globulin (1.3-4.6) g/dL Blood Type O Positive Rho(D) Type Positive Antibody Screen Negative Crossmatch See Detail Discharge Plan Discharge Admit Provider: Riley Magana Discharge Date/Time: 01/17/20 14:13 Coding Level of Care Code 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
[2020-01-17 11:36] LABS: Basophils % 0.2 %; Eosinophils % 0.5 %; Lymphocytes # 0.5 10^3/uL (0.8-4.8); Mean Corpuscular Hemoglobin 32.6 pg (28.0-34.0); Mean Corpuscular Volume 108.6 fL (80-94); Monocytes # 0.3 10^3/uL (0.2-0.9); Monocytes % 5.4 %; Neutrophils # 4.68 10^3/uL (1.8-7.7); Neutrophils % 83.6 %; Nucleated Red Blood Cells % 0.5 %; Platelet Count 105 10^3/cmm (130-400); Red Blood Count 1.87 10^6/uL (4.1-5.3); Red Cell Distribution Width 19.9 % (12.1-15.1); White Blood Count 5.6 10^3/uL (4.0-10.0)
[2020-01-17 11:40] LABS: Hematocrit 20.3 % (42.0-52.0); Hemoglobin 6.1 g/dL (11.7-16.6)
[2020-01-17 11:53] LABS: INR 1.24 (0.8-1.2)
[2020-01-17 11:54] LABS: Partial Thromboplastin Time 33.7 SECONDS (23.9-36.7)
[2020-01-17 11:59] LABS: Alanine Aminotransferase 14 U/L (0-41); Albumin Level 3.4 g/dL (3.5-5.2); Alkaline Phosphatase 65 IU/L (40-130); Anion Gap 21.7 (5-19); Aspartate Amino Transferase 16 U/L (0-40); Blood Urea Nitrogen 75 mg/dL (8-23); Calcium 7.8 mg/dL (8.5-10.5); Carbon Dioxide 17 mmol/L (22-29); Chloride 94 mmol/L (98-107); Glucose 170 mg/dL (65-115); Osmolality Calculated 292 mOsm/kg (285-295); Potassium 4.7 mmol/L (3.5-5.1); Sodium 128 mmol/L (136-145); Total Bilirubin 0.3 mg/dL (0.15-1.2); Total Protein 5.4 g/dL (6.6-8.7)
--- NOTE | 2020-01-17 12:07 | PC.NURSE ---
pt's BP reading 71/58. This nurse in room to assess pt and to recheck BP. Finding reported to ED physician and primary nurse
[2020-01-17] MEDS: ciprofloxacin 400 MG/200 ML PREMIX 200 MG IV (12:46)
--- NOTE | 2020-01-17 13:52 | PM.HP ---
Providers/Chief Complaint Admitting Physician: Riley Magana Primary Care Provider: Jesus Rodriguez MD Chief Complaint: BLOOD IN STOOL History of Present Illness Marvel Haddad is a 74 year old gentleman with recurrent GIB and blood loss anemia, diverticulosis and angiodysplasia, with extensive work up with multiple endoscopies, reports including capsule endoscopy, following up with track broom operator in [place], as well as behavioral consultant due to LVAD with chronic CHF, here follows with Dr. Melendez. On chronic suppressive antibiotic therapy due to history of LVAD infection. He has seen also Dr. Henriquez, and it appears not many options for management of recurrent anemia apart from intermittent supportive blood transfusions. He was just discharged with a similar episode on 01/04. Returns to the hospital as yesterday started having some loose stools, and subsequently after multiple episodes started having fresh blood mixed with the stools. Feeling fatigued. Has been having some associated left lower quadrant abdominal discomfort. In ER noted with acute blood loss anemia hemoglobin down to 6.1, compared to 8.8 on last discharge. Apart from symptoms starting last night he has been at baseline state of health. Review of Systems Const: Denies: fever(s), chills, body aches or malaise Eyes: Denies: change in vision or eye redness ENMT: Denies: throat pain, oral sores or ear or mastoid pain Card: Denies: chest pain, edema, pre-syncope or dyspnea on exertion Resp: Denies: dyspnea, productive cough, change in phlegm color or hemoptysis GI: Reports: abdominal pain (Mild abdominal discomfort LLQ), diarrhea and hematochezia; Denies: nausea, vomiting, constipation or melena : Denies: flank pain, difficulty urinating, urinary frequency or hematuria Musc: Denies: back pain, joint swelling or joint redness Skin/Breast: Denies: rash, sores or new lesions Neuro: Denies: headache(s), numbness in extremities, weakness in extremities, dizziness, confusion or seizure-like activity Endo: Denies: polyuria or polydipsia Hipolito/Lymph: Denies: easy bleeding or purpura All/Imm: Denies: urticaria, throat swelling or tongue swelling Medications/Allergies Home Medications Medication Instructions Recorded Confirmed Last Taken Type acetaminophen 325 mg tablet 325 mg PO Q6H PRN tab 07/23/19 01/17/20 Unknown History allopurinol 300 mg tablet 150 mg PO DAILY 07/23/19 01/17/20 01/16/20 History amoxicillin 500 mg tablet 500 mg PO BID 07/23/19 01/17/20 01/16/20 History bumetanide 2 mg tablet 8 mg PO BID tab 07/23/19 01/17/20 01/16/20 History ferrous gluconate 324 mg (38 mg 324 mg PO BID 07/23/19 01/17/20 01/16/20 History iron) tablet folic acid 1 mg tablet 2 mg PO DAILY tab 07/23/19 01/17/20 01/17/20 History insulin aspart U-100 100 unit/mL See Rx Instructions .ROUTE .COMPLEX 07/23/19 01/17/20 01/17/20 History subcutaneous solution insulin glargine 100 unit/mL See Rx Instructions .ROUTE 07/23/19 01/17/20 01/16/20 History subcutaneous solution .COMPLEX ml isosorbide mononitrate 60 mg 90 mg PO DAILY tab 07/23/19 01/17/20 01/17/20 History tablet,extended release 24 hr levetiracetam 750 mg tablet 750 mg PO BID 07/23/19 01/17/20 01/17/20 History levothyroxine 112 mcg capsule 112 mcg PO DAILY 07/23/19 01/17/20 01/17/20 History metoprolol succinate 25 mg 25 mg PO DAILY 07/23/19 01/17/20 01/17/20 History tablet,extended release 24 hr nitroglycerin 0.4 mg sublingual 0.4 mg SUBLINGUAL Q5M PRN 07/23/19 01/17/20 Unknown History tablet polyethylene glycol 3350 17 17 gm PO DAILY 07/23/19 01/17/20 01/01/20 History gram/dose oral powder potassium chloride 20 mEq 40 meq PO BID PRN tab 07/23/19 01/17/20 12/29/19 History tablet,extended release rosuvastatin 20 mg tablet 20 mg PO DAILY 07/23/19 01/17/20 01/16/20 History spironolactone 50 mg tablet 50 mg PO DAILY 07/23/19 01/17/20 01/17/20 History sulfamethoxazole 800 1 tab PO DAILY 07/23/19 01/17/20 01/16/20 History mg-trimethoprim 160 mg tablet ondansetron HCl [Zofran] 4 mg PO Q6H PRN 01/02/20 01/17/20 01/02/20 History tramadol 50 mg PO BEDTIME PRN 01/02/20 01/17/20 Unknown History ascorbic acid (vitamin C) [Vitamin 500 mg PO BID 01/17/20 01/17/20 01/17/20 History C] cholecalciferol (vitamin D3) 50 mcg PO DAILY 01/17/20 01/17/20 01/17/20 History [Vitamin D3] Allergies Allergy/AdvReac Type Severity Reaction Status Date / Time clindamycin Allergy Unknown unknown Verified 01/02/20 13:03 cyclobenzaprine Allergy Unknown unknown Verified 01/02/20 13:03 fenofibrate [From Tricor] Allergy Unknown Unknown Verified 01/02/20 13:03 gabapentin Allergy Unknown unknown Verified 01/02/20 13:03 gemfibrozil Allergy Unknown unknwon Verified 01/02/20 13:03 hydrocodone Allergy Unknown unknown Verified 01/02/20 13:03 lisinopril Allergy Unknown unknown Verified 01/02/20 13:03 metolazone Allergy Unknown unknown Verified 01/02/20 13:03 niacin Allergy Unknown unknown Verified 01/02/20 13:03 [From Niaspan Extended-Release] Opioids - Morphine Analogues Allergy Unknown unknown Verified 01/02/20 13:03 pantoprazole [From Protonix] Allergy Unknown unknown Verified 01/02/20 13:03 prednisone Allergy Unknown unknown Verified 01/02/20 13:03 PFSH Acute PFSH: Medical History (Updated 01/17/20 @ 14:22 by Riley Magana MD) Anemia Ascites ASHD (arteriosclerotic heart disease) Atrial fibrillation Cardiac defibrillator in place Cardiomyopathy CHF (congestive heart failure) Cholecystectomy planned Chronic antibiotic suppression CKD (chronic kidney disease) Cystitis Diabetes Hyperlipidemia Hypertension Hypothyroidism Left ventricular assist device present Lower GI bleed requiring more than 4 units of blood in 24 hours, ICU, or surgery LVAD (left ventricular assist device) present Mitral regurgitation Pulmonary hypertension Seizure disorder Thyroid nodule Surgical History H/O hernia repair H/O knee surgery H/O thyroidectomy Hx of appendectomy Family History Other CAD (coronary artery disease) Cancer Hypertension Social History Smoking and tobacco status: former smoker Alcohol intake: never Substance/Drug Use: never Lives independently: No Household members: spouse Marital status: Vitals/I&O/Wt Last Vital Signs Temp 97.6 F 01/17/20 13:20 Pulse 70 01/17/20 13:20 Resp 18 01/17/20 13:20 BP 75/65 01/17/20 13:20 Pulse Ox 95 01/17/20 13:20 01/16/20 01/17/20 01/17/20 22:59 06:59 14:59 Intake Total 0 / 0 Balance 0 / 0 Weight last 48 hrs Weight 90.265 kg Physical Exam Const: COMMON NORMALS: no acute distress and patient oriented x3 GENERAL APPEARANCE: frail appearing and other (Generally weak.) OTHER: at bedside. HENMT: COMMON NORMALS: oropharynx normal Neck/C-Spine: COMMON NORMALS: no JVD Chest: OTHER: Defibrillator left chest. Resp: COMMON NORMALS: normal respiratory effort and clear to auscultation bilaterally AUSCULTATION: clear to auscultation bilaterally Cardio: COMMON NORMALS: no JVD, regular rhythm, S1 normal heart sound present, S2 normal heart sound present and No murmurs present (Cardio) RHYTHM: regular rhythm HEART SOUNDS: S1 normal heart sound present and S2 normal heart sound present GI: COMMON NORMALS: Normal to inspection, nondistended, normoactive bowel sounds present, Soft to palpation and non-tender PALPATION: Yes Soft to palpation OTHER: LVAD cabling right flank. Extremity: COMMON NORMALS: no joint enlargement and no pedal edema Neuro: COMMON NORMALS: patient oriented x3 and moves all extremities Skin: COMMON NORMALS: no rashes or lesions noted GENERAL SKIN EXAM: no rashes or lesions noted Data : 01/17/20 11:26 01/17/20 11:26 Micro: Microbiology 01/17/20 12:50 Blood Culture - Preliminary Blood SPECIMEN COLLECTED 01/17/20 12:55 Blood Culture - Preliminary Blood SPECIMEN COLLECTED A&P Assessment and plan (1) Acute blood loss anemia: With BRBPR. Started transfusion in ER. Recheck hemoglobin. Monitor in ICU. Monitor blood pressures. Recurrence episodes of GI bleeding with extensive work-up in the past. Status: Acute (2) GI bleeding: Has been worked up in conjunction with gastroenterology at [facility] with multiple endoscopies. Has been seen by hematology as well. At risk of acquired von Willebrand disease, although this was not suspected because during the visit back in April. Appears only treatment options have been so far supportive care, intermittent palliative transfusions. He does report having loose stool starting yesterday. Is on chronic antibiotic suppression. Some left flank abdominal discomfort. Received a dose of Cipro and Flagyl in ER. Per discussion with ER physician CT scan of abdomen not done as he just had a study on 01/01. On my examination abdomen is soft. Nontender on palpation. Will check C. difficile. Status: Acute (3) Hypotension: Received 1 L bolus saline in ER. Starting blood transfusion. Will hold off additional IV fluids given cardiomyopathy. Monitor blood pressure in ICU. Intermittent small boluses may be preferred in case additional volume resuscitation is required. Suspected hypovolemic secondary to diarrhea, acute blood loss anemia, while taking his medications including diuretics, Imdur. Status: Acute (4) Left ventricular assist device present: is going to bring spare batteries. To exchange batteries they were instructed to change one at a time white battery first, then black. At night LVAD plugs into electrical outlet. Follows with cardiology in [place], and Dr. Melendez here. In case of any procedures required needs to be transferred to [facility] to be performed under supervision of cardiology there. Status: Acute (5) Cardiac defibrillator in place: Status: Acute (6) ASHD (arteriosclerotic heart disease): Status: Acute (7) Cardiomyopathy: Status: Acute (8) Chronic antibiotic suppression: With amoxicillin and Bactrim Status: Acute Additional A&P Information Chronic kidney disease: Creatinine appears close to baseline if perhaps mildly worse. Monitor. Avoid hypotension. Hold off blood pressure medications for now. Hold diuretics for now. Monitor volume status. Hold allopurinol for now. Hyponatremia: Suspect hypovolemic with diarrhea, diuretics. Hold diuretics for now. Monitor. Seizure disorder. Other chronic lesions Attestations Medical Necessity Statement*: Admission of over 2 midnights is going to needed for assessment and management of acute blood loss anemia secondary to GI bleeding in the presence of severe cardiomyopathy, LVAD, hypovolemic hypotension. 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
[2020-01-17] MEDS: sodium chloride 0.9% 1,000 ML 100 ML IV (13:53)
[2020-01-17] MEDS: metroNIDAZOLE IV 500 MG/100 ML PREMIX 100 MG IV (14:48)
--- NOTE | 2020-01-17 15:00 | PC.NURSE ---
prbc infusing from er at this time noted lvad right side intact running on battery power . had had loose red bm noted jasmine care done .
[2020-01-17] MEDS: amoxicillin 500 mg Capsule PO (18:09)
[2020-01-17] MEDS: ferrous gluconate 324 mg Tablet PO (18:09)
[2020-01-17] MEDS: ascorbic acid 500 mg Tablet PO (18:09)
[2020-01-17] MEDS: levETIRAcetam 500 mg Tablet 750 MG PO (18:09)
[2020-01-17 20:41] LABS: Hemoglobin 6.7 g/dL (11.7-16.6)
--- NOTE | 2020-01-17 21:42 | PC.NURSE ---
Patient NPO, FSBSG 99, order for Lantus 20u on JUN; contacted Dr. Marie re: holding dose, ok'd holding dose for tonight.
--- NOTE | 2020-01-17 21:43 | PC.NURSE ---
Unable to get automated BP from patient, patient stated manual BP cuff and doppler typically used for BP measurement. Physician ok'd hourly BP checks unless increased frequency needed.
--- NOTE | 2020-01-17 23:34 | PC.NURSE ---
Physician notified of difficulty to obtain adequate and consistent blood pressure readings.
[2020-01-18] VITALS (53 sets, daily range): BP systolic 60–94; BP diastolic 52–81; PULSE 69–78; RESP 12–35; TEMP 36.5–36.7; O2SAT 72–100
--- NOTE | 2020-01-18 00:15 | PM.ACPR ---
Procedure/Consent Time out: Time Out Performed: Yes Consent: Consent for Procedure: Consent obtained from patient, Risks & Benefits reviewed and Agrees to proceed with procedure Acute Procedures Arterial Line: Time out performed: Yes Size (Gauge): 20 Technique used: guide wire technique Post-Procedure: dry sterile dressing placed Patient tolerated procedure: well Complications: none Site: right and radial Additional comments: ultrasound used to detect Right radiat artery Due to LVAD did not see good contraction, Bright red blood jet seen after placement of angiocath Current MAP around 65 mmhg Epistaxis Control: Time out performed: Yes
[2020-01-18] MEDS: lidocaine 2% INJ 20 mL INJECTION (00:30)
--- NOTE | 2020-01-18 01:26 | PC.NURSE ---
Art line placed in right radial artery, consent signed by patient, tolerated well, US utilized by Dr. Marie. Unable to record blood pressure d/t patient's body habitus, health status (LVAD, sclerosis), charting reflects this. Narrowing pulse pressures noted per art line, wave form slightly dampened but able to read MAP. Dr. Marie verbally ok'd after visualizing monitor.
[2020-01-18 06:15] LABS: Basophils % 0.3 %; Eosinophils % 0.3 %; Hematocrit 25.7 % (42.0-52.0); Lymphocytes # 0.5 10^3/uL (0.8-4.8); Lymphocytes % 6.9 %; Mean Corpuscular HGB Conc 31.1 g/dL (30.0-36.0); Mean Corpuscular Hemoglobin 31.7 pg (28.0-34.0); Mean Platelet Volume 8.7 fL (7.4-10.4); Monocytes # 0.6 10^3/uL (0.2-0.9); Monocytes % 8.2 %; Neutrophils # 5.63 10^3/uL (1.8-7.7); Neutrophils % 82.5 %; Nucleated Red Blood Cells # 0.1 /100WBC; Nucleated Red Blood Cells % 0.9 %; Platelet Count 77 10^3/cmm (130-400); Red Blood Count 2.52 10^6/uL (4.1-5.3); Red Cell Distribution Width 18.9 % (12.1-15.1); White Blood Count 6.8 10^3/uL (4.0-10.0)
[2020-01-18 06:29] LABS: Alanine Aminotransferase 10 U/L (0-41); Albumin Level 2.7 g/dL (3.5-5.2); Alkaline Phosphatase 43 IU/L (40-130); Aspartate Amino Transferase 14 U/L (0-40); Blood Urea Nitrogen 73 mg/dL (8-23); Calcium 7.2 mg/dL (8.5-10.5); Carbon Dioxide 16 mmol/L (22-29); Chloride 103 mmol/L (98-107); Globulin 1.7 g/dL (1.3-4.6); Glucose 101 mg/dL (65-115); Osmolality Calculated 292 mOsm/kg (285-295); Sodium 130 mmol/L (136-145); Total Bilirubin 0.6 mg/dL (0.15-1.2); Total Protein 4.4 g/dL (6.6-8.7)
--- NOTE | 2020-01-18 08:33 | USCV_ITS ---
Marvel Haddad Age: 74 Gender: M : 1945 Exam Date: 01/18/2020 09:42 Ordering Phys: Riley Magana MD Technologist: Palma Walker Exam Location: [facility] [place] Indication: Hypotension BP: 95 / 66 HR: 69 Rhythm: Sinus Technical Quality: Very technically difficult study MEASUREMENTS (Male / Female) Normal Values 2D ECHO LV Diastolic Diameter PLAX 4.3 cm 4.2 - 5.9 / 3.9 - 5.3 cm LV Systolic Diameter PLAX 2.8 cm LV Chamber Size 3.4 cm IVS Diastolic Thickness 1.1 cm 0.6 - 1.0 / 0.6 - 0.9 cm IVS Systolic Thickness 1.5 cm LVPW Diastolic Thickness 0.9 cm 0.6 - 1.0 / 0.6 - 0.9 cm LVPW Systolic Thickness 0.8 cm RV Chamber Size 3.5 cm LVOT Diameter 1.8 cm LV Ejection Fraction 2D Teich 64.7 % LA Diameter 5.0 cm LA Width 4.9 cm LA Height 6.6 cm RA Width 3.5 cm RA Height 7.5 cm Aorta at Sinotubular Diameter 2.5 cm M-MODE Aortic Annulus Diameter 4.0 cm LA Ao Ratio MM 1.3 MV E Point Septal Separation 0.5 cm DOPPLER AV Peak Velocity 102.0 cm/s LVOT Peak Velocity 95.0 cm/s AV Area Cont Eq vti 2.5 cm squared AV Area Cont Eq pk 2.4 cm squared MV Area PHT 3.7 cm squared MV E' Velocity 58.0 cm/s TR Peak Velocity 311.0 cm/s TR Peak Gradient 38.7 mmHg TR Mean Velocity 232.9 cm/s TR Mean Gradient 23.2 mmHg TR Velocity Time Integral 103.8 cm TV Peak E Velocity 75.0 cm/s Right Atrial Pressure 3.0 mmHg Pulmonary Artery Systolic Pressu 41.7 mmHg PV Peak Velocity 49.0 cm/s RV Acceleration Time 0.1 s RV Ejection Time 0.3 s RV AcT/ET 0.2 FINDINGS Left Ventricle Severe diffuse hypokinesia of the left ventricle. Segmental wall motion analysis difficult because of the poor ultrasonic window. The left ventricular cavity was not visualized well. Could not visualize the left ventricular inflow cannula or the aortic outflow graft of the LVAD Right Ventricle Normal RV size and ejection fraction. Pacemaker/ICD wire is noted pacemaker/ICD wire is noted Right Atrium Mildly increased right atrial size. Left Atrium Moderately increased left atrial size. Mitral Valve Mild mitral annular calcification. Aortic Valve Thickened aortic valve with moderately diminished movements Tricuspid Valve Moderate tricuspid valve regurgitation. Peak pulmonary artery 20 pressure 42 mmHg Pulmonic Valve Pulmonic valve not well visualized. Pericardium No pericardial effusion. Aorta Normal aortic annulus size. CONCLUSIONS Severe diffuse hypokinesia of the left ventricle. Segmental wall motion analysis and ejection fraction estimation are difficult because of the poor ultrasonic window. The left ventricular cavity was not visualized well. The extremely poor aortic valve excursions, most likely from the left ventricular assist device. The left ventricular inflow cannula and the aortic outflow graft could not be visualized. Moderate calcification in the aortic valve Both atria are found to be moderately dilated. Estimated pulmonary artery peak systolic pressure of 42 mmHg No pericardial effusion Because of the difference in the technical quality, the study could not be compared with that one from 09/25/2013 Dr Santos Melendez MD [facility] (Electronically Signed) Final Date: 18 January 2020 18:24 S
[2020-01-18] MEDS: ascorbic acid 500 mg Tablet PO ×2 (09:01→17:38)
[2020-01-18] MEDS: folic acid 1 mg Tablet 2 MG PO (09:01)
[2020-01-18] MEDS: ferrous gluconate 324 mg Tablet PO ×2 (09:02→17:38)
[2020-01-18] MEDS: levETIRAcetam 500 mg Tablet 750 MG PO ×2 (09:02→17:38)
[2020-01-18] MEDS: atorvastatin 40 mg Tablet 80 MG PO (09:02)
[2020-01-18] MEDS: levothyroxine 112 mcg Tablet PO (09:03)
--- NOTE | 2020-01-18 09:04 | PM.PN ---
Subjective Subjective: Interval history: He is feeling a bit better. His blood pressures are low, but he says it is not uncommon for his blood pressures to be between 80/50, up to 100 systolic or so. Discussed with him that current blood pressures have been without Imdur and diuretics which we have held for now. He does have diarrhea, overnight has had 7 episodes. C. difficile is positive. He says he never had C. difficile before. Denies abdominal pain. He is hungry and wants to try some food starting with liquid diet. Vitals/I&O/Wt Last Vital Signs Temp 97.7 F 01/18/20 04:35 Pulse 70 01/18/20 06:30 Resp 19 H 01/18/20 06:30 BP 75/66 01/18/20 06:30 Pulse Ox 77 L 01/18/20 06:00 01/17/20 01/18/20 01/18/20 22:59 06:59 14:59 Intake Total 100 / 100 50 / 150 Output Total 153 / 153 200 / 353 Balance -53 / -53 -150 / -203 Weight last 48 hrs Weight 90.265 kg Physical Exam Const: COMMON NORMALS: no acute distress and patient oriented x3 GENERAL APPEARANCE: frail appearing and other (Generally weak.) OTHER: Awake, alert. HENMT: COMMON NORMALS: oropharynx normal Neck/C-Spine: COMMON NORMALS: no JVD Chest: OTHER: Defibrillator left chest. Resp: COMMON NORMALS: normal respiratory effort and clear to auscultation bilaterally AUSCULTATION: clear to auscultation bilaterally Cardio: COMMON NORMALS: no JVD, regular rhythm, S1 normal heart sound present, S2 normal heart sound present and No murmurs present (Cardio) RHYTHM: regular rhythm HEART SOUNDS: S1 normal heart sound present and S2 normal heart sound present GI: COMMON NORMALS: Normal to inspection, nondistended, normoactive bowel sounds present, Soft to palpation and non-tender PALPATION: Yes Soft to palpation OTHER: LVAD bundle right flank. Extremity: COMMON NORMALS: no joint enlargement and no pedal edema Neuro: COMMON NORMALS: patient oriented x3 and moves all extremities Skin: COMMON NORMALS: no rashes or lesions noted GENERAL SKIN EXAM: no rashes or lesions noted Data : 01/18/20 06:00 01/18/20 06:00 Micro: Microbiology 01/17/20 19:53 C.difficile Toxin B Gene (PCR) - Final Stool - Stool Aspirate 01/17/20 12:50 Blood Culture - Preliminary Blood SPECIMEN COLLECTED 01/17/20 12:55 Blood Culture - Preliminary Blood SPECIMEN COLLECTED A&P Assessment and plan (1) C. difficile colitis: C. difficile sent on presentation is positive. Reports that this is the first episode of C. difficile colitis. Started on oral vancomycin overnight. Decreased dose 225 mg. Continue for 10 days. Would benefit from infectious disease follow-up given chronic antibiotic suppression and now C. difficile. For now we will hold his diuretics given recurrent diarrhea. He wants to try some clear liquids and try to advance diet if tolerating. Status: Acute (2) Acute blood loss anemia: Improved. Responded to. Patient transfusion. Hold additional transfusion for now, reassess hemoglobin discussed with him that he may need additional blood if hemoglobin were to decrease further. With BRBPR at presentation. Received 2 units RBC. Monitor in ICU. Monitor blood pressures. Recurrence episodes of GI bleeding with extensive work-up in the past. Status: Acute (3) GI bleeding: Has been worked up in conjunction with gastroenterology at [facility] with multiple endoscopies. Has been seen by hematology as well. At risk of acquired von Willebrand disease, although this was not suspected because during the visit back in April. Appears only treatment options have been so far supportive care, intermittent palliative transfusions. He does report having loose stool starting yesterday. Is on chronic antibiotic suppression. Some left flank abdominal discomfort reported prior to admission. Received a dose of Cipro and Flagyl in ER. Per discussion with ER physician CT scan of abdomen not done as he just had a study on 01/01. On my examination abdomen is soft. Nontender on palpation. C. difficile was checked and positive. Treat as above. Status: Acute (4) Hypotension: Received 1 L bolus saline in ER. Then 2 units. BC transfusion. We have held his diuretics and Imdur. Discussed with him. Blood pressure usually does not run high, and says that not uncommonly dips into 80/50. For now this is without his diuretics and Imdur, continue to hold until diarrhea starts to let up. Monitor. Status: Acute (5) Left ventricular assist device present: Follows with cardiology in [place], and Dr. Melendez here. In case of any procedures required needs to be transferred to [facility] to be performed under supervision of cardiology there. To exchange batteries they were instructed to change one at a time white battery first, then black. At night LVAD plugs into electrical outlet. Status: Acute (6) Cardiac defibrillator in place: Status: Acute (7) ASHD (arteriosclerotic heart disease): Status: Acute (8) Cardiomyopathy: Status: Acute (9) Chronic antibiotic suppression: With amoxicillin and Bactrim which reports is taking due to prior LVAD infection. Status: Acute Additional A&P Information Chronic kidney disease: Creatinine appears close to baseline if perhaps mildly worse. Monitor. Avoid hypotension. Hold off blood pressure medications for now. Hold diuretics for now. Monitor volume status. Hold allopurinol for now. Hyponatremia: Improving. Suspect hypovolemic with diarrhea, diuretics. Hold diuretics for now. Monitor. Seizure disorder. Other chronic lesions Attestations Medical Necessity Statement*: Continue admission for assessment of management of GI bleeding with finding of new C. difficile colitis, acute blood loss anemia, hypotension. Procedures Arterial Line Size (Gauge): 20 Coding Level of Care Code Acute [employer]er for [facility] Fwd Diagnoses C. difficile colitis A04.72 Acute blood loss anemia D62 GI bleeding K92.2 Hypotension I95.9 Left ventricular assist device present Z95.[address] Z95.810 ASHD (arteriosclerotic heart disease) I25.10 Cardiomyopathy I42.9 Chronic antibiotic suppression Z79.2
--- NOTE | 2020-01-18 15:08 | PC.NURSE ---
red stool has either clots or stool in liquid red.
[2020-01-18 16:44] LABS: Glucose Point of Care 237 mg/dL (70-110)
--- NOTE | 2020-01-18 17:03 | PC.NURSE ---
no symptoms with elevated glucose. ins. due this evening.
[2020-01-18] MEDS: insulin glargine 100 units/1 mL 20 UNIT SUBCUT (20:21)
[2020-01-18 20:24] LABS: Glucose Point of Care 220 mg/dL (70-110)
[2020-01-19] VITALS (61 sets, daily range): BP systolic 68–98; BP diastolic 58–68; PULSE 64–72; RESP 13–35; TEMP 36.6–37.2; O2SAT 91–100
[2020-01-19] MEDS: ondansetron 2 mg/ML SDV 2 mL 4 MG IVP ×3 (00:20→09:15)
[2020-01-19 01:05] LABS: Basophils % 0.1 %; Eosinophils % 0.4 %; Lymphocytes # 0.6 10^3/uL (0.8-4.8); Lymphocytes % 6.4 %; Mean Corpuscular HGB Conc 31.8 g/dL (30.0-36.0); Mean Corpuscular Hemoglobin 31.5 pg (28.0-34.0); Mean Platelet Volume 8.9 fL (7.4-10.4); Monocytes # 0.8 10^3/uL (0.2-0.9); Monocytes % 7.6 %; Neutrophils % 84.1 %; Nucleated Red Blood Cells # 0.1 /100WBC; Nucleated Red Blood Cells % 1.1 %; Platelet Count 82 10^3/cmm (130-400); Red Blood Count 1.97 10^6/uL (4.1-5.3); Red Cell Distribution Width 19.9 % (12.1-15.1); White Blood Count 9.9 10^3/uL (4.0-10.0)
[2020-01-19 01:10] LABS: Alanine Aminotransferase 8 U/L (0-41); Albumin Level 2.7 g/dL (3.5-5.2); Alkaline Phosphatase 45 IU/L (40-130); Aspartate Amino Transferase 15 U/L (0-40); Blood Urea Nitrogen 60 mg/dL (8-23); Calcium 7.6 mg/dL (8.5-10.5); Carbon Dioxide 17 mmol/L (22-29); Chloride 100 mmol/L (98-107); Globulin 1.6 g/dL (1.3-4.6); Glucose 164 mg/dL (65-115); Magnesium 2.7 mg/dL (1.7-2.3); Osmolality Calculated 283 mOsm/kg (285-295); Sodium 126 mmol/L (136-145); Total Bilirubin 0.5 mg/dL (0.15-1.2); Total Protein 4.3 g/dL (6.6-8.7)
[2020-01-19 01:16] LABS: Glucose Point of Care 190 mg/dL (70-110)
[2020-01-19 01:16] LABS: Glucose Point of Care 114 mg/dL (70-110)
[2020-01-19 01:16] LABS: Glucose Point of Care 99 mg/dL (70-110)
[2020-01-19 01:16] LABS: Glucose Point of Care 174 mg/dL (70-110)
[2020-01-19 01:21] LABS: Hematocrit 19.5 % (42.0-52.0); Hemoglobin 6.2 g/dL (11.7-16.6)
--- NOTE | 2020-01-19 07:17 | PC.NURSE ---
Pt has had multiple loose, occ gelatinous maroon stools. Small clots observed. Pt c/o nausea shortly after 2400 and stated that he felt like his blood count was low. Checked BS and was 170s. Called lab and asked for AM labs to be drawn now--results showed H&H of 6.2 and 19.5. Voalted MD and order placed for 1 unit PRBC. Blood infused without incident and flushed. VSS throughout. T&R with minimal assist. Voiding dark yellow urine without diff. Art line was not working well 1st 1/2 of shift but seems fine now although pt's SBPs are 70-80s which he says is nml for him. Has been A&O x4 all night. Denied pain. Uses call light to make needs known. Report to Sadie LAGUNAS.
[2020-01-19] MEDS: ferrous gluconate 324 mg Tablet PO ×2 (09:15→17:36)
[2020-01-19] MEDS: folic acid 1 mg Tablet 2 MG PO (09:15)
[2020-01-19] MEDS: ascorbic acid 500 mg Tablet PO ×2 (09:15→17:36)
[2020-01-19] MEDS: levothyroxine 112 mcg Tablet PO (09:15)
[2020-01-19] MEDS: atorvastatin 40 mg Tablet 80 MG PO (09:15)
[2020-01-19] MEDS: levETIRAcetam 500 mg Tablet 750 MG PO ×2 (09:16→17:36)
[2020-01-19 09:27] LABS: Hematocrit 20.1 % (42.0-52.0); Hemoglobin 6.5 g/dL (11.7-16.6)
--- NOTE | 2020-01-19 09:33 | PM.PN ---
Subjective Subjective: Interval history: Patient continues to have bloody bowel movements with last bloody bowel movement early in the morning at 6 AM. Hemoglobin today morning 6.3. He is complaining of dizziness. Denies of having nausea, vomiting, headache. States does not have any belly pain. On examination patient blood pressure is 90 systolic with heart rate running in the 70s. He saturating 96% on room air and is remained afebrile. Patient is comfortable during my interview. Vitals/I&O/Wt Last Vital Signs Temp 97.8 F 01/19/20 09:00 Pulse 70 01/19/20 09:00 Resp 21 H 01/19/20 09:00 BP 74/65 01/19/20 09:00 Pulse Ox 100 01/19/20 09:00 01/18/20 01/19/20 01/19/20 22:59 06:59 14:59 Intake Total 820 / 1420 730 / 2150 300 / 300 Output Total 775 / 1695 150 / 1845 200 / 200 Balance 45 / -275 580 / 305 100 / 100 Weight last 48 hrs Weight 90.265 kg Physical Exam Const: COMMON NORMALS: no acute distress and patient oriented x3 GENERAL APPEARANCE: frail appearing and other (Generally weak.) OTHER: Awake, alert, pallor present. HENMT: COMMON NORMALS: oropharynx normal Neck/C-Spine: COMMON NORMALS: no JVD Chest: OTHER: Defibrillator left chest. Resp: COMMON NORMALS: normal respiratory effort and clear to auscultation bilaterally AUSCULTATION: clear to auscultation bilaterally Cardio: COMMON NORMALS: no JVD, regular rhythm, S1 normal heart sound present, S2 normal heart sound present and No murmurs present (Cardio) RHYTHM: regular rhythm HEART SOUNDS: S1 normal heart sound present and S2 normal heart sound present GI: COMMON NORMALS: Normal to inspection, nondistended, normoactive bowel sounds present, Soft to palpation and non-tender PALPATION: Yes Soft to palpation OTHER: LVAD bundle right flank. Extremity: COMMON NORMALS: no joint enlargement and no pedal edema Neuro: COMMON NORMALS: patient oriented x3 and moves all extremities Skin: COMMON NORMALS: no rashes or lesions noted GENERAL SKIN EXAM: no rashes or lesions noted Data : 01/19/20 14:30 01/19/20 00:41 Micro: Microbiology 01/17/20 12:50 Blood Culture - Preliminary Blood NEGATIVE TO DATE 01/17/20 12:55 Blood Culture - Preliminary Blood NEGATIVE TO DATE A&P Assessment and plan (1) C. difficile colitis: C. difficile on admission. As per the labs and can persistent GI bleed most likely moderate to severe disease. We will increase the dose of oral vancomycin to 250 mg 4 times daily. We will do a CT abdomen pelvis to rule out toxic megacolon. Patient is on chronic suppression with amoxicillin and Bactrim for LVAD infection in the past. Patient has severe infection because of FELICIA, low albumin, ongoing diarrhea and GI bleed along with hypotension. Will consult ID regarding further treatment with either increased vancomycin along with IV Flagyl versus rectal vancomycin. We will also ask if it is okay to restart amoxicillin and Bactrim as patient is at high risk of LVAD infection again. Status: Acute (2) Acute blood loss anemia: Overall patient is required 3 units of blood transfusion till now. Hemoglobin 6.3 today. We will do 2 more unit of blood transfusion right now. We will check hemoglobin and hematocrit every 12 hours. Check iron panel, vitamin B12, folate levels. Will call lab to see if he can add reticulocyte low counts to the first blood work drawn on admission. N.p.o. except meds for now. We will recheck hemoglobin in 12 hours and if improving appropriately can continue with clear liquid diet. Patient states he does not tolerate Protonix well as causes more GI bleed. Start patient on Carafate 1 g p.o. before meals and at bedtime. Zofran as needed for nausea and vomiting. Continue with oral iron supplementation, oral folic acid supplementation. Status: Acute (3) GI bleeding: Has been worked up in conjunction with gastroenterology at [facility] with multiple endoscopies. Has been seen by hematology as well. At risk of acquired von Willebrand disease, although this was not suspected because during the visit back in April. Appears only treatment options have been so far supportive care, intermittent palliative transfusions. Patient might require further colonoscopy/EGD but unfortunately will require LVAD anesthesia support. Will try to see if he can transfer patient to [facility] for further work-up and treatment along with EGD/colonoscopy even colectomy. Status: Acute (4) Hypotension: Most likely because of hypovolemia from recurrent diarrhea. Continue to hold home medications of metoprolol, Imdur, Bumex. Patient is saturating more than 90% on room air and does not look in fluid overload. Status: Acute (5) Left ventricular assist device present: Follows with cardiology in [place], and Dr. Melendez here. In case of any procedures required needs to be transferred to [facility] to be performed under supervision of cardiology there. To exchange batteries they were instructed to change one at a time white battery first, then black. At night LVAD plugs into electrical outlet. Status: Acute (6) Cardiac defibrillator in place: Status: Acute (7) ASHD (arteriosclerotic heart disease): Status: Acute (8) Cardiomyopathy: Status: Acute (9) Chronic antibiotic suppression: With amoxicillin and Bactrim which reports is taking due to prior LVAD infection. Held for now because of C. difficile. We will consult ID to restart medication. Patient has follow-up with ID and [facility] as well for chronic suppression. Status: Acute Additional A&P Information Chronic kidney disease: Creatinine appears close to baseline if perhaps mildly worse. Monitor. Avoid hypotension. Hold off blood pressure medications for now. Hold diuretics for now. Monitor volume status. Hyponatremia: Improving. Suspect hypovolemic with diarrhea, diuretics. Hold diuretics for now. Monitor. Seizure disorder. Other chronic lesions Attestations Medical Necessity Statement*: Severe acute blood loss anemia, GI bleed, C. difficile colitis, LVAD Critical Care Time: Critical Care Time (min): 80 Procedures Arterial Line Size (Gauge): 20 Coding Level of Care Code Acute Medical Surgery Nurse for [facility] Fwd Diagnoses C. difficile colitis A04.72 Acute blood loss anemia D62 GI bleeding K92.2 Hypotension I95.9 Left ventricular assist device present Z95.[address] Z95.810 ASHD (arteriosclerotic heart disease) I25.10 Cardiomyopathy I42.9 Chronic antibiotic suppression Z79.2
--- NOTE | 2020-01-19 09:36 | CT_ITS ---
WS: [id number] CT ABDOMEN AND PELVIS NONCONTRAST HISTORY: C. Difficile, GI bleed. TECHNIQUE: Imaging performed through the abdomen and pelvis. Coronal and sagittal reformats are submi tted. All CT scans at [facility] use at least one of these dose optimization techniques: automated exposure control; mA and/or kV adjustment per patient size (includes targeted exams where d ose is matched to clinical indication); or iterative reconstruction. DLP: 1476.14 mGy.cm COMPARISON: 01/02/2020 Lower thorax: Pleural thickening at the lung bases. No pneumonia. Cardiac pump are noted over the tho rax. Heart size is enlarged. Liver: Cirrhotic liver. Gallbladder: Prior cholecystectomy. Pancreas: Normal size and attenuation. Normal pancreatic duct. No pancreatitis or mass. Spleen: Normal. Adrenal glands: Normal. No mass. Right kidney: Moderate atrophy. Left kidney: Moderate atrophy. Aorta: Extensive calcification no aneurysm. There are a few very small pockets of ascites within the abdomen. GI tract: No GI tract obstruction. Extensive diverticulosis throughout the colon. No significant wall thickening throughout the majority of the colon. In the sigmoid there is mild wall thickening which is thought to be related to diverticulosis. Abdominal wall: Negative. No hernia. Pelvis: Minimally distended bladder. Osseous structures: T11 compression fracture by 50% seen on 01/02/2020. Bones are osteopenic. CT/CT abdomen pelvis wo con [id number] IMPRESSION: 1. No GI tract obstruction or significant wall thickening. There is mild wall thickening in the region of the sigmoid with associated diverticular disease. 2. A few small pockets of ascites throughout the abdomen. 3. Cirrhosis. 4. Extensive atherosclerosis.
[2020-01-19 10:47] LABS: Vitamin B12 404 pg/mL (232-1245)
[2020-01-19] MEDS: sucralfate 1 gm/10 mL Oral Liq UDC PO ×3 (10:49→21:58)
[2020-01-19] MEDS: allopurinol 300 mg Tablet 150 MG PO (10:49)
[2020-01-19] MEDS: sodium chloride 0.9% (100 ml) 100 ML 150 ML ×2 (11:12→15:47)
[2020-01-19 11:22] LABS: Lactate (Lactic Acid level) 1.3 mmol/L (0.5-2.2)
[2020-01-19 13:33] LABS: Folate Level > 20.0 ng/mL (4.5-32.2)
[2020-01-19 15:10] LABS: Hematocrit 23.5 % (42.0-52.0); Hemoglobin 7.3 g/dL (11.7-16.6)
[2020-01-19] MEDS: metroNIDAZOLE IV 500 MG/100 ML PREMIX 100 MG IV (16:48)
--- NOTE | 2020-01-19 17:44 | PM.CONSULT ---
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 Patient is noted to be hypotensive with SBP 70-90, however reportedly this is not too far from his baseline. Cr at 3.0, appears to be also close to baseline, patient has a h/o CKD.I n ER noted with acute blood loss anemia hemoglobin down to 6.1, compared to 8.8 on last discharge. He has received 5 units of PRBC transfusion since admission. ID consulte dregarding abx management and opinion regarding whether suppressive tehrapy should be discontinued. Patient has never been tested for C diff in the past. Review of Systems General: Reports: 10 or more systems reviewed and unremarkable except in HPI and below Const: Denies: fever(s), chills or body aches Eyes: Denies: change in vision, blurry vision or photophobia ENMT: Reports: hoarseness; Denies: throat pain, enlarged tonsils, odynophagia or nasal congestion Card: Denies: chest pain, palpitations, irregular heart rhythm, edema, swelling of feet/ankles, lightheadedness, pre-syncope, dyspnea on exertion or orthopnea Resp: Denies: dyspnea, productive cough, non-productive cough, wheezing, stridor, pain on inspiration, change in phlegm color, hemoptysis or chest congestion GI: Denies: abdominal pain, nausea, vomiting, hematemesis, coffee ground emesis, dysphagia, heartburn, diarrhea, constipation, GI cramping, change in stool character, hematochezia or melena : Denies: flank pain, dysuria, urinary frequency, urinary urgency, urinary hesitancy or hematuria Musc: Denies: neck pain, back pain, extremity pain, joint swelling, joint warmth or deformity Neuro: Denies: headache(s), numbness in extremities, weakness in extremities, sensory changes, difficulty walking, frequent falls, dizziness, vertigo, behavioral changes, Slurred speech present or seizure-like activity Psych: Denies: anxiety, depression, suicidal ideation or homicidal ideation Endo: Denies: polyuria, polydipsia, tired all the time, cold intolerance or hot flashes Hipolito/Lymph: Denies: easy bruising or easy bleeding Meds/Allergies Home Medications and Allergies Home Medications Medication Instructions Recorded Confirmed Last Taken Type acetaminophen 325 mg tablet 325 mg PO Q6H PRN tab 07/23/19 01/17/20 Unknown History allopurinol 300 mg tablet 150 mg PO DAILY 07/23/19 01/17/20 01/16/20 History amoxicillin 500 mg tablet 500 mg PO BID 07/23/19 01/17/20 01/16/20 History bumetanide 2 mg tablet 8 mg PO BID tab 07/23/19 01/17/20 01/16/20 History ferrous gluconate 324 mg (38 mg 324 mg PO BID 07/23/19 01/17/20 01/16/20 History iron) tablet folic acid 1 mg tablet 2 mg PO DAILY tab 07/23/19 01/17/20 01/17/20 History insulin aspart U-100 100 unit/mL See Rx Instructions .ROUTE .COMPLEX 07/23/19 01/17/20 01/17/20 History subcutaneous solution insulin glargine 100 unit/mL See Rx Instructions .ROUTE 07/23/19 01/17/20 01/16/20 History subcutaneous solution .COMPLEX ml isosorbide mononitrate 60 mg 90 mg PO DAILY tab 07/23/19 01/17/20 01/17/20 History tablet,extended release 24 hr levetiracetam 750 mg tablet 750 mg PO BID 07/23/19 01/17/20 01/17/20 History levothyroxine 112 mcg capsule 112 mcg PO DAILY 07/23/19 01/17/20 01/17/20 History metoprolol succinate 25 mg 25 mg PO DAILY 07/23/19 01/17/20 01/17/20 History tablet,extended release 24 hr nitroglycerin 0.4 mg sublingual 0.4 mg SUBLINGUAL Q5M PRN 07/23/19 01/17/20 Unknown History tablet polyethylene glycol 3350 17 17 gm PO DAILY 07/23/19 01/17/20 01/01/20 History gram/dose oral powder potassium chloride 20 mEq 40 meq PO BID PRN tab 07/23/19 01/17/20 12/29/19 History tablet,extended release rosuvastatin 20 mg tablet 20 mg PO DAILY 07/23/19 01/17/20 01/16/20 History spironolactone 50 mg tablet 50 mg PO DAILY 07/23/19 01/17/20 01/17/20 History sulfamethoxazole 800 1 tab PO DAILY 07/23/19 01/17/20 01/16/20 History mg-trimethoprim 160 mg tablet ondansetron HCl [Zofran] 4 mg PO Q6H PRN 01/02/20 01/17/20 01/02/20 History tramadol 50 mg PO BEDTIME PRN 01/02/20 01/17/20 Unknown History ascorbic acid (vitamin C) [Vitamin 500 mg PO BID 01/17/20 01/17/20 01/17/20 History C] cholecalciferol (vitamin D3) 50 mcg PO DAILY 01/17/20 01/17/20 01/17/20 History [Vitamin D3] Allergies Allergy/AdvReac Type Severity Reaction Status Date / Time clindamycin Allergy Unknown unknown Verified 01/02/20 13:03 cyclobenzaprine Allergy Unknown unknown Verified 01/02/20 13:03 fenofibrate [From Tricor] Allergy Unknown Unknown Verified 01/02/20 13:03 gabapentin Allergy Unknown unknown Verified 01/02/20 13:03 gemfibrozil Allergy Unknown unknwon Verified 01/02/20 13:03 hydrocodone Allergy Unknown unknown Verified 01/02/20 13:03 lisinopril Allergy Unknown unknown Verified 01/02/20 13:03 metolazone Allergy Unknown unknown Verified 01/02/20 13:03 niacin Allergy Unknown unknown Verified 01/02/20 13:03 [From Niaspan Extended-Release] Opioids - Morphine Analogues Allergy Unknown unknown Verified 01/02/20 13:03 pantoprazole [From Protonix] Allergy Unknown unknown Verified 01/02/20 13:03 prednisone Allergy Unknown unknown Verified 01/02/20 13:03 Current Medications Current Medications Generic Name Dose Route Start Last Admin Trade Name Freq PRN Reason Stop Dose Admin Allopurinol 150 mg 01/19/20 10:00 01/19/20 10:49 Zyloprim PO 150 mg DAILY THERESA Administration Amoxicillin 500 mg 01/17/20 18:00 01/17/20 18:09 Trimox PO 500 mg BID THERESA Administration Ascorbic Acid 500 mg 01/17/20 18:00 01/19/20 17:36 Vitamin C PO 500 mg BID THERESA Administration Atorvastatin Calcium 80 mg 01/18/20 09:00 01/19/20 09:15 Lipitor PO 80 mg DAILY THERESA Administration Ferrous Gluconate 324 mg 01/17/20 18:00 01/19/20 17:36 Ferrous Gluconate PO 324 mg BID THERESA Administration Folic Acid 2 mg 01/18/20 09:00 01/19/20 09:15 Folic Acid PO 2 mg DAILY THERESA Administration Metronidazole 500 mg in 100 mls @ 100 mls/hr 01/19/20 16:30 01/19/20 16:48 Flagyl Iv IV 100 mls/hr Q8H THERESA Administration Protocol Insulin Glargine 20 unit 01/17/20 21:00 01/18/20 20:21 Lantus SUBCUT 20 unit BEDTIME THERESA Administration Levetiracetam 750 mg 01/17/20 18:00 01/19/20 17:36 Keppra PO 750 mg BID THERESA Administration Levothyroxine Sodium 112 mcg 01/18/20 09:00 01/19/20 09:15 Synthroid PO 112 mcg DAILY THERESA Administration Ondansetron HCl 4 mg 01/17/20 13:48 01/19/20 06:27 Zofran IVP 4 mg Q6H PRN Administration NAUSEA AND VOMITING Sucralfate 1 gm 01/19/20 11:00 01/19/20 17:36 Carafate Oral Liq PO 1 gm AC&BEDTIME THERESA Administration Vancomycin HCl 250 mg 01/19/20 13:00 01/19/20 17:35 Vancocin PO 250 mg QID THERESA Administration PFSH Acute PFSH: Medical History Anemia Ascites ASHD (arteriosclerotic heart disease) Atrial fibrillation Cardiac defibrillator in place Cardiomyopathy CHF (congestive heart failure) Cholecystectomy planned Chronic antibiotic suppression CKD (chronic kidney disease) Cystitis Diabetes Hyperlipidemia Hypertension Hypothyroidism Left ventricular assist device present Lower GI bleed requiring more than 4 units of blood in 24 hours, ICU, or surgery LVAD (left ventricular assist device) present Mitral regurgitation Pulmonary hypertension Seizure disorder Thyroid nodule Surgical History H/O hernia repair H/O knee surgery H/O thyroidectomy Hx of appendectomy Family History Other CAD (coronary artery disease) Cancer Hypertension Social History Smoking and tobacco status: former smoker Alcohol intake: never Lives independently: No Household members: spouse Marital status: Vitals/I&O/Wt Last Vital Signs Temp 98.0 F 01/19/20 17:43 Pulse 70 01/19/20 17:43 Resp 18 01/19/20 17:43 BP 79/66 01/19/20 17:43 Pulse Ox 100 01/19/20 17:43 01/19/20 01/19/20 01/19/20 06:59 14:59 22:59 Intake Total 730 / 2150 650 / 650 460 / 1110 Output Total 150 / 1845 500 / 500 300 / 800 Balance 580 / 305 150 / 150 160 / 310 Physical Exam Narrative: EXAM NARRATIVE: GEN: Awake, alert and oriented, no acute distress CVS: S1S2 N RS: CTA B/L Abd: Soft, nt/nd , bs+ 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: no focal neuro deficits Data Micro: Micro: Microbiology 01/17/20 12:50 Blood Culture - Pr eliminary Blood NEGATIVE TO KARISSA E 01/17/20 12:55 Blood Culture - Pr eliminary Blood NEGATIVE TO KARISSA E Imaging^: CT Abd/Pel: Radiologist's impression: [place] [address] CT Scan Report Signed Patient: Marvel Haddad #: [id number] : 6Acct#:[id number] Age/Sex: 74 / MADM Date: 01/17/20 Loc: ICURoom/Bed: [place] [address]: Geovani Mccarthy MD Ordering Provider/Ordering MD: Geovani Mccarthy MD Date of Service: 01/19/20 Procedure(s): CT abdomen pelvis wo con [id number] Accession Number(s): [id number] Report Number: [id number] WS: [id number] CT ABDOMEN AND PELVIS NONCONTRAST HISTORY: C. Difficile, GI bleed. TECHNIQUE: Imaging performed through the abdomen and pelvis. Coronal and sagittal reformats are submitted. All CT scans at [facility] use at least one of these dose optimization techniques: automated exposure control; mA and/or kV adjustment per patient size (includes targeted exams where dose is matched to clinical indication); or iterative reconstruction. DLP: 1476.14 mGy.cm COMPARISON: 01/02/2020 Lower thorax: Pleural thickening at the lung bases. No pneumonia. Cardiac pump are noted over the thorax. Heart size is enlarged. Liver: Cirrhotic liver. Gallbladder: Prior cholecystectomy. Pancreas: Normal size and attenuation. Normal pancreatic duct. No pancreatitis or mass. Spleen: Normal. Adrenal glands: Normal. No mass. Right kidney: Moderate atrophy. Left kidney: Moderate atrophy. Aorta: Extensive calcification no aneurysm. There are a few very small pockets of ascites within the abdomen. GI tract: No GI tract obstruction. Extensive diverticulosis throughout the colon. No significant wall thickening throughout the majority of the colon. In the sigmoid there is mild wall thickening which is thought to be related to diverticulosis. Abdominal wall: Negative. No hernia. Pelvis: Minimally distended bladder. Osseous structures: T11 compression fracture by 50% seen on 01/02/2020. Bones are osteopenic. CT/CT abdomen pelvis wo con [id number] IMPRESSION: 1. No GI tract obstruction or significant wall thickening. There is mild wall thickening in the region of the sigmoid with associated diverticular disease. 2. A few small pockets of ascites throughout the abdomen. 3. Cirrhosis. 4. Extensive atherosclerosis. A&P Assessment and plan (1) C. difficile colitis: Status: Acute (2) Left ventricular assist device present: Status: Acute (3) Chronic antibiotic suppression: Status: Acute (4) Hypotension: Status: Acute (5) GI bleeding: Status: Acute (6) Lower gastrointestinal hemorrhage: Status: Acute (7) Cardiomyopathy: Status: Acute Additional A&P Information # C diff colitis Patient on chronic suppressive abx regimen which does put him at risk for CDI. Given persistent hypotension, ongoing diarrhea, elevated cr, cannot rule out fulminant C diff, however this appears to be less likely since Cr appears ro be close to baseline and per patient his BP tends to be on the lower side and CT without any findings of toxic megacolon. Continue po vancomycin for now, can add iv flagyl given multiple episodes of stools Amoxicillin and bactrim currently have been placed on hold, obtain past ID records regarding LVAD infection. If remains stable over the next 24 hrs, will likely resume chronic suppression alongside of po vancomycin Procedures Arterial Line Size (Gauge): 20 Coding Level of Care Code Acute Records Analysis Manager for [place] Fwd Diagnoses C. difficile colitis A04.72 Left ventricular assist device present Z95.811 Chronic antibiotic suppression Z79.2 Hypotension I95.9 GI bleeding K92.2 Lower gastrointestinal hemorrhage K92.2 Cardiomyopathy I42.9
[2020-01-19 19:22] LABS: Hematocrit 23.4 % (42.0-52.0); Hemoglobin 7.5 g/dL (11.7-16.6)
[2020-01-19] MEDS: insulin glargine 100 units/1 mL 20 UNIT SUBCUT (22:00)
[2020-01-20] VITALS: PULSE 70; RESP 16; O2SAT 100
[2020-01-20 00:30] VITALS: PULSE 70; RESP 16
--- NOTE | 2020-01-20 00:41 | PC.NURSE ---
TRANSFER Report called to receiving facility to Dalia Bob RN. In report, given that patient had art line in right wrist and receiving nurse stated that their floor did not take art lines. Right radial arterial line removed, pressure held and pressure dressing placed. Nurses assisted patient with disconnecting LVAD cables and putting them on portable batteries and EMS picked up patient. Receiving hospital called to alert them of patient leaving and also notified.
--- NOTE | 2020-01-20 00:56 | PC.NURSE ---
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
[2020-01-20 00:58] VITALS: BP 70/68; PULSE 70; RESP 15; TEMP 37.1; O2SAT 100
--- NOTE | 2020-01-20 10:54 | P.TS_ITS ---
Transfer Summary Providers Date of Admission: 01/17/20 12:38 Date of Discharge: 01/20/20 Attending Provider at Admission: Riley Magana Attending Provider at Transfer: Geovani Mccarthy MD Primary Care Provider: Jesus Rodriguez MD Anticipated Date of Transfer: Anticipated date of transfer: 01/20/20 Receiving Facility & Provider: Receiving Provider: [Dr. Arredondo] Receiving facility: [[facility]] Diagnoses at Discharge Discharge Diagnosis (1) C. difficile colitis: Status: Acute (2) Acute blood loss anemia: Status: Acute (3) GI bleeding: Status: Acute (4) Hypotension: Status: Acute (5) Left ventricular assist device present: Status: Acute (6) Cardiac defibrillator in place: Status: Acute (7) ASHD (arteriosclerotic heart disease): Status: Acute (8) Cardiomyopathy: Status: Acute (9) Chronic antibiotic suppression: Status: Acute Reason for Visit Reason for Visit: BLOOD IN STOOL Hospital Course Discharge Summary: Marvel Haddad is a 74 year old gentleman with recurrent GIB and blood loss anemia, diverticulosis and angiodysplasia, with extensive work up with multiple endoscopies, reports including capsule endoscopy, following up with calibrator barometers in [place], 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 Melendez. On chronic suppressive antibiotic therapy due to history of LVAD infection. He has seen also Dr. Henriquez, and it appears not many options for management of recurrent anemia apart from intermittent supportive blood transfusions. He was just discharged with a similar episode on 01/04. Returns to the hospital as yesterday started having some loose stools, and subsequently after multiple episodes started having fresh blood mixed with the stools. Feeling fatigued. Has been having some associated left lower quadrant abdominal discomfort. In ER noted with acute blood loss anemia hemoglobin down to 6.1, compared to 8.8 on last discharge. Apart from symptoms starting last night he has been at baseline state of health. During hospitalization patient required overall 5 units of blood transfusion. He continued to have frequent bloody diarrheal bowel movements. At first March globin stabilized around 8 but then trending down again. On review of old notes and history with patient it seems that patient has had ongoing GI bleed for last 7 to 8 months for which he has had multiple endoscopies and colonoscopies in the past. Stool studies were done which came back positive for C. difficile. Given his creatinine, albumin and ongoing GI bleed he becomes a candidate for severe C. difficile for which he was started on oral vancomycin and IV Flagyl. His chronic suppressive antibiotics for LVAD infections were withheld for now. Patient most likely require further colonoscopy and maybe even colectomy because of ongoing severe recurrent GI bleed. Unfortunately at [facility] we do not have facility for any invasive procedures for LVAD patients so transfer was sought to his primary hospital at [facility] where his LVAD/heart failure team is. Patient follows up at [facility] both for ID and heart failure in the past. Patient was graciously accepted by Dr. Blank from [facility] and was transferred once a bed was made in hemodynamically stable condition. 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 TS Data Data Completed and Pending: Completed Studies During Hospitalization Category Date Time Status CT abdomen pelvis wo con [id number] Rout ine Cat Scan 01/19/20 09:36 Completed CV echo complete* [id number] Routine Ultrasound 01/18/20 08:33 Completed Pending at discharge Category Date Time Status Blood Culture Sta t Lab 01/17/20 12:55 Results Labs from last 24 hours 01/19/20 01/19/20 01/19/20 19:10 14:30 10:55 Hgb 7.5 L 7.3 L Hct 23.4 L 23.5 L Lactate 1.3 Folate Blood Type Rho(D) Type Antibody Screen Crossmatch 01/17/20 01/17/20 11:26 11:26 Hgb Hct Lactate Folate > 20.0 Blood Type O Positive Rho(D) Type Positive Antibody Screen Negative Crossmatch See Detail Vitals: Last Vital Signs Temp 98.8 F 01/20/20 00:58 Pulse 70 01/20/20 00:58 Resp 15 01/20/20 00:58 BP 70/68 01/20/20 00:58 Pulse Ox 100 01/20/20 00:58 TS Medications Medications Home Medications acetaminophen 325 mg tablet 325 mg PO Q6H PRN tab 07/23/19 [History Confirmed 01/17/20] allopurinol 300 mg tablet 150 mg PO DAILY 07/23/19 [History Confirmed 01/17/20] amoxicillin 500 mg tablet 500 mg PO BID 07/23/19 [History Confirmed 01/17/20] bumetanide 2 mg tablet 8 mg PO BID tab 07/23/19 [History Confirmed 01/17/20] ferrous gluconate 324 mg (38 mg iron) tablet 324 mg PO BID 07/23/19 [History Confirmed 01/17/20] folic acid 1 mg tablet 2 mg PO DAILY tab 07/23/19 [History Confirmed 01/17/20] insulin aspart U-100 100 unit/mL subcutaneous solution See Rx Instructions .ROUTE .COMPLEX 07/23/19 [History Confirmed 01/17/20] insulin glargine 100 unit/mL subcutaneous solution See Rx Instructions .ROUTE .COMPLEX ml 07/23/19 [History Confirmed 01/17/20] isosorbide mononitrate 60 mg tablet,extended release 24 hr 90 mg PO DAILY tab 07/23/19 [History Confirmed 01/17/20] levetiracetam 750 mg tablet 750 mg PO BID 07/23/19 [History Confirmed 01/17/20] levothyroxine 112 mcg capsule 112 mcg PO DAILY 07/23/19 [History Confirmed 01/17/20] metoprolol succinate 25 mg tablet,extended release 24 hr 25 mg PO DAILY 07/23/19 [History Confirmed 01/17/20] nitroglycerin 0.4 mg sublingual tablet 0.4 mg SUBLINGUAL Q5M PRN 07/23/19 [History Confirmed 01/17/20] polyethylene glycol 3350 17 gram/dose oral powder 17 gm PO DAILY 07/23/19 [History Confirmed 01/17/20] potassium chloride 20 mEq tablet,extended release 40 meq PO BID PRN tab 07/23/19 [History Confirmed 01/17/20] rosuvastatin 20 mg tablet 20 mg PO DAILY 07/23/19 [History Confirmed 01/17/20] spironolactone 50 mg tablet 50 mg PO DAILY 07/23/19 [History Confirmed 01/17/20] sulfamethoxazole 800 mg-trimethoprim 160 mg tablet 1 tab PO DAILY 07/23/19 [History Confirmed 01/17/20] ondansetron HCl [Zofran] 4 mg PO Q6H PRN 01/02/20 [History Confirmed 01/17/20] tramadol 50 mg PO BEDTIME PRN 01/02/20 [History Confirmed 01/17/20] ascorbic acid (vitamin C) [Vitamin C] 500 mg PO BID 01/17/20 [History Confirmed 01/17/20] cholecalciferol (vitamin D3) [Vitamin D3] 50 mcg PO DAILY 01/17/20 [History Confirmed 01/17/20] Discharge Plan Discharge Patient Disposition: Xfer Other Prescriptions: No Action levothyroxine 112 mcg capsule 112 mcg PO DAILY RF: 0 acetaminophen [Tylenol] 325 mg tablet 325 mg PO Q6H PRN (Reason: Pain) RF: 0 nitroglycerin [Nitrostat] 0.4 mg tablet, sublingual 0.4 mg SUBLINGUAL Q5M PRN (Reason: Chest Pain) RF: 0 rosuvastatin [Crestor] 20 mg tablet 20 mg PO DAILY RF: 0 polyethylene glycol 3350 [Miralax] 17 gram/dose powder 17 gm PO DAILY RF: 0 spironolactone 50 mg tablet 50 mg PO DAILY RF: 0 metoprolol succinate 25 mg tablet extended release 24 hr 25 mg PO DAILY RF: 0 isosorbide mononitrate 60 mg tablet extended release 24 hr 90 mg PO DAILY RF: 0 bumetanide 2 mg tablet 8 mg PO BID RF: 0 folic acid 1 mg tablet 2 mg PO DAILY RF: 0 Lantus U-100 Insulin 100 unit/mL solution See Rx Instructions .ROUTE .COMPLEX RF: 0 allopurinol 300 mg tablet 150 mg PO DAILY RF: 0 potassium chloride 20 mEq tablet extended release 40 meq PO BID PRN (Reason: LOW POTASSIUM) RF: 0 insulin aspart U-100 [Novolog U-100 Insulin aspart] 100 unit/mL solution See Rx Instructions .ROUTE .COMPLEX RF: 0 amoxicillin 500 mg tablet 500 mg PO BID RF: 0 ferrous gluconate 324 mg (38 mg iron) tablet 324 mg PO BID RF: 0 levetiracetam [Keppra] 750 mg tablet 750 mg PO BID RF: 0 sulfamethoxazole-trimethoprim [Bactrim DS] 800-160 mg tablet 1 tab PO DAILY RF: 0 ondansetron HCl [Zofran] 4 mg Tablet 4 mg PO Q6H PRN (Reason: Nausea) RF: 0 tramadol 50 mg tablet 50 mg PO BEDTIME PRN (Reason: Pain) RF: 0 Vitamin C 500 mg Tablet 500 mg PO BID RF: 0 Vitamin D3 50 mcg (2,000 unit) Capsule 50 mcg PO DAILY RF: 0 Discharge Orders: Discharge Order (Routine); Ordered 01/20/20 Ordered By: Geovani Mccarthy Referrals: [facility] [Outside] Discharge Date/Time: 01/20/20 00:30 Transfer Attestations Time Spent in Transfer Care*: greater than 30 min Specific Discharge Activities: Specific discharge activities: educating patient, educating and/or supporting family/caregiver, discussing with pcp/other providers, discussing with correctional case manager/social workers/dc planners, documenting/other paperwork and evaluating patient/reviewing data Status at Transfer: Cognitive status at transfer: cognitively intact , Behavioral status at transfer: cooperative , Functional status at transfer: other Overall status at transfer: patient is not back to baseline Quality Metrics Clinical Quality Measures: During this hospital stay, did patient experience: None Coding Level of Care Code Acute Heel Pricker for [place]ol[place] Fwd Diagnoses C. difficile colitis A04.72 Acute blood loss anemia D62 GI bleeding K92.2 Hypotension I95.9 Left ventricular assist device present Z95.[address] Z95.810 ASHD (arteriosclerotic heart disease) I25.10 Cardiomyopathy I42.9 Chronic antibiotic suppression Z79.2
== END 2020-01-20 00:30 | disposition short-term general hospital (02) | DRG 378 ==
LOC: ER 13:02 → ICU 13:31
PROVIDERS: Admitting Provider Internal Medicine; Emergency Provider Family Medicine; PCP Family Medicine; Visit Provider Student in an Organized Health Care Education/Training Program
DX: K92.2 Gastrointestinal hemorrhage, unspecified (principal); D62 Acute posthemorrhagic anemia; A04.72 Enterocolitis due to Clostridium difficile, not specified as recurrent; I42.9 Cardiomyopathy, unspecified; Z95.811 Presence of heart assist device; I13.0 Hypertensive heart and chronic kidney disease with heart failure and stage 1 through stage 4 chronic kidney disease, or unspecified chronic kidney disease; I25.10 Atherosclerotic heart disease of native coronary artery without angina pectoris; Z95.810 Presence of automatic (implantable) cardiac defibrillator; Z79.2 Long term (current) use of antibiotics; I95.9 Hypotension, unspecified; K55.20 Angiodysplasia of colon without hemorrhage; Z79.4 Long term (current) use of insulin; I50.9 Heart failure, unspecified; N18.9 Chronic kidney disease, unspecified; E03.9 Hypothyroidism, unspecified; E78.5 Hyperlipidemia, unspecified; I48.91 Unspecified atrial fibrillation; E11.22 Type 2 diabetes mellitus with diabetic chronic kidney disease; Z87.891 Personal history of nicotine dependence
CPT/HCPCS: 12345; 36415; 36416; 36430; 36592; 74176; 76705; 80053; 82607; 82746; 82962; 83605; 83735; 85014; 85018; 85025; 85045; 85610; 85730; 86850; 86900; 86920; 87040; 87493; 93306; 96372; 96375; 99282; J0744; J1815; J2405; J3370; J7030; P9016; S0030

== ENCOUNTER 2020-01-26 09:20 | Outpatient (CLI) | payer MEDICARE, OTHER, SELFPAY ==
[2020-01-26] VITALS (9 sets, daily range): PULSE 60–70; RESP 18; TEMP 36–36.6; O2SAT 97
[2020-01-26 11:55] LABS: Basophils % 0.2 %; Eosinophils # 0.1 10^3/uL (0.0-0.8); Eosinophils % 0.8 %; Lymphocytes # 0.5 10^3/uL (0.8-4.8); Lymphocytes % 8.5 %; Mean Corpuscular HGB Conc 29.7 g/dL (30.0-36.0); Mean Corpuscular Hemoglobin 31.3 pg (28.0-34.0); Mean Corpuscular Volume 105.5 fL (80-94); Mean Platelet Volume 9.5 fL (7.4-10.4); Monocytes # 0.4 10^3/uL (0.2-0.9); Neutrophils # 4.71 10^3/uL (1.8-7.7); Nucleated Red Blood Cells % 0.7 %; Platelet Count 106 10^3/cmm (130-400); Red Blood Count 1.82 10^6/uL (4.1-5.3); Red Cell Distribution Width 21.3 % (12.1-15.1); White Blood Count 6.1 10^3/uL (4.0-10.0)
[2020-01-26 12:26] LABS: Hematocrit 19.2 % (42.0-52.0); Hemoglobin 5.7 g/dL (11.7-16.6)
[2020-01-26 12:27] LABS: Slide Review Slide Review Perform
[2020-01-26 12:35] LABS: Alanine Aminotransferase 19 U/L (0-41); Albumin Level 2.8 g/dL (3.5-5.2); Alkaline Phosphatase 101 IU/L (40-130); Anion Gap 19.2 (5-19); Aspartate Amino Transferase 25 U/L (0-40); Blood Urea Nitrogen 60 mg/dL (8-23); Calcium 7.1 mg/dL (8.5-10.5); Carbon Dioxide 20 mmol/L (22-29); Chloride 96 mmol/L (98-107); Globulin 2.1 g/dL (1.3-4.6); Glucose 165 mg/dL (65-115); Lactate Dehydrogenase 216 U/L (135-225); Osmolality Calculated 293 mOsm/kg (285-295); Potassium 4.2 mmol/L (3.5-5.1); Sodium 131 mmol/L (136-145); Total Bilirubin 0.4 mg/dL (0.15-1.2); Total Protein 4.9 g/dL (6.6-8.7)
[2020-01-26] MEDS: diphenhydrAMINE 25 mg Capsule PO (13:45)
[2020-01-26] MEDS: sodium chloride 0.9% 250 ML 999 ML IV (13:45)
[2020-01-27] VITALS (8 sets, daily range): BP systolic 105–125; BP diastolic 42–75; PULSE 70–76; RESP 18; TEMP 36.1–36.6; O2SAT 96–100
== END 2020-01-26 09:21 | disposition home or self-care (01) ==
LOC: ONCMED 09:24
PROVIDERS: PCP Family Medicine; Visit Provider Internal Medicine Medical Oncology
DX: D62 Acute posthemorrhagic anemia (principal)
CPT/HCPCS: 36430; 80053; 83615; 85025; 86850; 86900; 86920; J7050; P9040; P9058

== ENCOUNTER 2020-01-27 09:08 | Outpatient (CLI) | payer MEDICARE, OTHER, SELFPAY ==
[2020-01-27 09:47] LABS: Basophils % 0.4 %; Eosinophils % 0.5 %; Hematocrit 24.1 % (42.0-52.0); Hemoglobin 7.4 g/dL (11.7-16.6); Lymphocytes # 0.5 10^3/uL (0.8-4.8); Lymphocytes % 5.6 %; Mean Corpuscular HGB Conc 30.7 g/dL (30.0-36.0); Mean Corpuscular Hemoglobin 30.6 pg (28.0-34.0); Mean Corpuscular Volume 99.6 fL (80-94); Mean Platelet Volume 10.2 fL (7.4-10.4); Monocytes # 0.5 10^3/uL (0.2-0.9); Monocytes % 6.3 %; Neutrophils # 6.92 10^3/uL (1.8-7.7); Neutrophils % 82.8 %; Nucleated Red Blood Cells # 0.1 /100WBC; Nucleated Red Blood Cells % 1.2 %; Platelet Count 106 10^3/cmm (130-400); Red Blood Count 2.42 10^6/uL (4.1-5.3); Red Cell Distribution Width 23.2 % (12.1-15.1); White Blood Count 8.4 10^3/uL (4.0-10.0)
[2020-01-27] MEDS: bumetanide 0.25 mg/mL SDV 10 mL 2 MG IV (10:55)
[2020-01-27] MEDS: sodium chloride 0.9% 250 ML 999 ML IV (10:55)
== END 2020-01-27 09:09 | disposition home or self-care (01) ==
LOC: ONCMED 09:10
PROVIDERS: PCP Family Medicine; Visit Provider Internal Medicine Medical Oncology
DX: D62 Acute posthemorrhagic anemia (principal)
CPT/HCPCS: 85025; J3490; J7050; P9040

== ENCOUNTER 2020-01-30 12:28 | Outpatient (CLI) | payer MEDICARE, OTHER, SELFPAY ==
--- NOTE | 2020-01-30 12:39 | US_ITS ---
WS: [id number] Limited abdomen ultrasound, 01/30/2020 Clinical Data: ASCITES Comparison: Limited abdomen ultrasound, 01/14/2020. Findings: There is only a small amount of abdominal ascites. Paracentesis will be deferred. US/US abdomen lmt fluid [id number] Impression: Limited ascites, paracentesis deferred.
== END 2020-01-30 12:29 | disposition home or self-care (01) ==
LOC: RAD 12:34
PROVIDERS: PCP Family Medicine; Visit Provider Family Medicine
DX: R18.8 Other ascites (principal)
CPT/HCPCS: 76705

== ENCOUNTER 2020-02-02 08:14 | Outpatient (CLI) | payer MEDICARE, OTHER, SELFPAY ==
[2020-02-02 09:05] LABS: Basophils % 0.5 %; Eosinophils # 0.1 10^3/uL (0.0-0.8); Eosinophils % 0.9 %; Hematocrit 28.8 % (42.0-52.0); Hemoglobin 8.8 g/dL (11.7-16.6); Lymphocytes # 0.6 10^3/uL (0.8-4.8); Lymphocytes % 10.2 %; Mean Corpuscular HGB Conc 30.6 g/dL (30.0-36.0); Mean Corpuscular Hemoglobin 31.4 pg (28.0-34.0); Mean Corpuscular Volume 102.9 fL (80-94); Mean Platelet Volume 9.1 fL (7.4-10.4); Monocytes # 0.4 10^3/uL (0.2-0.9); Monocytes % 6.3 %; Neutrophils # 4.73 10^3/uL (1.8-7.7); Neutrophils % 80.6 %; Nucleated Red Blood Cells % 0 %; Platelet Count 83 10^3/cmm (130-400); Red Cell Distribution Width 21.2 % (12.1-15.1); White Blood Count 5.9 10^3/uL (4.0-10.0)
[2020-02-02 09:37] LABS: Alanine Aminotransferase 20 U/L (0-41); Albumin Level 3.3 g/dL (3.5-5.2); Alkaline Phosphatase 104 IU/L (40-130); Aspartate Amino Transferase 25 U/L (0-40); Blood Urea Nitrogen 57 mg/dL (8-23); Calcium 8.2 mg/dL (8.5-10.5); Carbon Dioxide 22 mmol/L (22-29); Chloride 95 mmol/L (98-107); Globulin 2.4 g/dL (1.3-4.6); Glucose 171 mg/dL (65-115); Lactate Dehydrogenase 211 U/L (135-225); Osmolality Calculated 294 mOsm/kg (285-295); Sodium 132 mmol/L (136-145); Total Bilirubin 0.5 mg/dL (0.15-1.2); Total Protein 5.7 g/dL (6.6-8.7)
== END 2020-02-02 08:15 | disposition home or self-care (01) ==
LOC: LAB 08:18
PROVIDERS: PCP Family Medicine; Visit Provider Internal Medicine
DX: Z95.811 Presence of heart assist device (principal)
CPT/HCPCS: 36415; 80053; 83615; 85025

== ENCOUNTER 2020-03-11 08:09 | Outpatient (CLI) | payer MEDICARE, OTHER, SELFPAY ==
--- NOTE | 2020-03-11 08:19 | US_ITS ---
WS: [id number] ULTRASOUND-GUIDED THERAPEUTIC PARACENTESIS Procedure, risks, and complications have been explained to the patient. Consent is obtained. Utilizing aseptic technique and 1% buffered lidocaine, a small dermatome was made through which a 5 F rench Yueh catheter was inserted. Approximately 3000 ml of dark yellow peritoneal fluid was obtained without difficulty. No complications encountered. US/US paracentesis abd w [id number] IMPRESSION: Uncomplicated paracentesis yielding 3000 ml of peritoneal fluid.
== END 2020-03-11 08:10 | disposition home or self-care (01) ==
LOC: RAD 08:15
PROVIDERS: PCP Family Medicine; Visit Provider Internal Medicine
DX: I50.9 Heart failure, unspecified (principal); R18.8 Other ascites
CPT/HCPCS: 49083

== ENCOUNTER 2020-03-15 08:40 | Outpatient (CLI) | payer MEDICARE, OTHER, SELFPAY ==
[2020-03-15 09:25] LABS: Basophils % 0.2 %; Eosinophils % 0.8 %; Hemoglobin 9.4 g/dL (11.7-16.6); Lymphocytes # 0.4 10^3/uL (0.8-4.8); Lymphocytes % 8.3 %; Mean Corpuscular HGB Conc 32.4 g/dL (30.0-36.0); Mean Corpuscular Hemoglobin 32.8 pg (28.0-34.0); Mean Platelet Volume 8.7 fL (7.4-10.4); Monocytes # 0.3 10^3/uL (0.2-0.9); Monocytes % 5.8 %; Neutrophils # 4.44 10^3/uL (1.8-7.7); Neutrophils % 83.6 %; Nucleated Red Blood Cells % 0.4 %; Platelet Count 131 10^3/cmm (130-400); Red Blood Count 2.87 10^6/uL (4.1-5.3); Red Cell Distribution Width 18.3 % (12.1-15.1); White Blood Count 5.3 10^3/uL (4.0-10.0)
[2020-03-15 09:40] LABS: Alanine Aminotransferase 7 U/L (0-41); Albumin Level 3.7 g/dL (3.5-5.2); Alkaline Phosphatase 81 IU/L (40-130); Aspartate Amino Transferase 13 U/L (0-40); Calcium 8.6 mg/dL (8.5-10.5); Carbon Dioxide 20 mmol/L (22-29); Chloride 81 mmol/L (98-107); Globulin 2.6 g/dL (1.3-4.6); Glucose 174 mg/dL (65-115); Lactate Dehydrogenase 214 U/L (135-225); Osmolality Calculated 281 mOsm/kg (285-295); Sodium 120 mmol/L (136-145); Total Bilirubin 0.3 mg/dL (0.15-1.2); Total Protein 6.3 g/dL (6.6-8.7)
[2020-03-15 10:54] LABS: Blood Urea Nitrogen 89 mg/dL (8-23)
== END 2020-03-15 08:41 | disposition home or self-care (01) ==
LOC: LAB 08:49
PROVIDERS: PCP Family Medicine; Visit Provider Internal Medicine
DX: Z95.811 Presence of heart assist device (principal); Z79.01 Long term (current) use of anticoagulants
CPT/HCPCS: 36415; 80053; 83615; 85025

== ENCOUNTER 2020-03-22 08:27 | Outpatient (CLI) | payer MEDICARE, OTHER, SELFPAY ==
[2020-03-22 09:04] LABS: Basophils % 0.2 %; Eosinophils % 0.4 %; Hematocrit 28.1 % (42.0-52.0); Hemoglobin 9.1 g/dL (11.7-16.6); Lymphocytes # 0.5 10^3/uL (0.8-4.8); Mean Corpuscular HGB Conc 32.4 g/dL (30.0-36.0); Mean Corpuscular Hemoglobin 32.4 pg (28.0-34.0); Mean Platelet Volume 8.7 fL (7.4-10.4); Monocytes # 0.3 10^3/uL (0.2-0.9); Monocytes % 7.2 %; Neutrophils # 3.82 10^3/uL (1.8-7.7); Neutrophils % 80.9 %; Nucleated Red Blood Cells % 0.4 %; Platelet Count 127 10^3/cmm (130-400); Red Blood Count 2.81 10^6/uL (4.1-5.3); Red Cell Distribution Width 16.8 % (12.1-15.1); White Blood Count 4.7 10^3/uL (4.0-10.0)
[2020-03-22 09:15] LABS: INR 1.13 (0.8-1.2)
[2020-03-22 09:20] LABS: Alanine Aminotransferase 8 U/L (0-41); Albumin Level 3.9 g/dL (3.5-5.2); Alkaline Phosphatase 74 IU/L (40-130); Anion Gap 21.5 (5-19); Aspartate Amino Transferase 10 U/L (0-40); Calcium 9.3 mg/dL (8.5-10.5); Carbon Dioxide 20 mmol/L (22-29); Chloride 82 mmol/L (98-107); Globulin 2.5 g/dL (1.3-4.6); Glucose 185 mg/dL (65-115); Lactate Dehydrogenase 210 U/L (135-225); Osmolality Calculated 279 mOsm/kg (285-295); Potassium 4.5 mmol/L (3.5-5.1); Total Bilirubin 0.3 mg/dL (0.15-1.2); Total Protein 6.4 g/dL (6.6-8.7)
[2020-03-22 09:26] LABS: Blood Urea Nitrogen 86 mg/dL (8-23); Sodium 119 mmol/L (136-145)
--- NOTE | 2020-03-22 11:48 | US_ITS ---
WS: [id number] ULTRASOUND-GUIDED PARACENTESIS CLINICAL INFORMATION: ASCITES COMPARISON: None. Procedure Informed consent: The risks, benefits, and alternatives of the procedure were discussed with the howie ent. Verbal and written consent was obtained. Timeout: A timeout was performed to confirm the correct patient, procedure, and site. Preparation: A suitable skin site was identified. The patient was prepped and draped in usual sterile fashion. Lidocaine 1% was used for local anesthesia. Catheter: 4 [place] One-step Yueh catheter. Side: Right Lower quadrant. Fluid Volume: 4640 ml Color: dirty yellow DISPOSITION: Discarded safely. Complications: Small amount of venous oozing from the incision site. Bandage and glue was applied. Patient disposition: Discharged from the department in stable condition. US/US paracentesis abd w [id number] IMPRESSION: Ultrasound-guided paracentesis. Removal of 4640 cc ascites.
== END 2020-03-22 08:28 | disposition home or self-care (01) ==
LOC: ONCMED 08:31
PROVIDERS: PCP Family Medicine; Visit Provider Internal Medicine
DX: R18.8 Other ascites (principal); Z95.811 Presence of heart assist device; I25.5 Ischemic cardiomyopathy; I50.22 Chronic systolic (congestive) heart failure
CPT/HCPCS: 36415; 49083; 80053; 83615; 85025; 85610

== ENCOUNTER 2020-03-22 13:57 | Emergency (ER) | payer MEDICARE, OTHER, SELFPAY ==
[2020-03-22 14:41] VITALS: BP 92/63; PULSE 69; RESP 14; TEMP 36.4; O2SAT 98; BMI 34.9
--- NOTE | 2020-03-22 15:20 | W.ED.GENADLT ---
HPI - General Adult General: Chief complaint: General Medical Stated complaint: Lower Right ABD wound/Check Sodium Level/ Time Seen by Provider: 03/22/20 15:03 History of Present Illness: HPI narrative: This patient is a 74-year-old gentleman who presents today with a low sodium. He tells me that what he needs and some sodium through the IV as well as some IV Bumex. He also needs to have the wound where he had a paracentesis today checked because it was continuing to bleed. He has a history of an LVAD since 2013. He has been having increasingly severe fluid retention and decreasing kidney function. He is now stage V renal failure. They are not going to be able to put him on dialysis because of the LVAD. He had the paracentesis done this morning. He had labs checked a week ago which showed sodium of 120 and today was 119. A month ago his sodium was normal at 132. A month ago he had a BUN and creatinine of 57 and 2.2. Both today and 1 week ago he has a BUN in the 80s and a creatinine of 4.6. He was already aware of these abnormal kidney function tests. He said Dr. Melendez told him that there was anything more they can do as far as his diuretics. His is with him today. He gets some of his care in [place] at [facility]. He sees Dr. Melendez for cardiology here and Dr. Traore for his kidneys. Onset (ago): unknown Associated symptoms: Reports dyspnea and malaise; Deny chest pain, headache(s), nausea, rash or vomiting Review of Systems General: Reports: 10 or more systems reviewed and unremarkable except in HPI and below Const: Reports: fatigue and malaise; Denies: fever(s) or chills Eyes: Denies: change in vision ENMT: Denies: odynophagia Card: Reports: swelling of feet/ankles, dyspnea on exertion and orthopnea; Denies: chest pain Resp: Reports: dyspnea; Denies: productive cough or non-productive cough GI: Reports: bloating; Denies: abdominal pain, nausea or vomiting : Denies: flank pain Musc: Denies: neck pain or back pain Skin/Breast: Denies: rash Neuro: Denies: headache(s), numbness in extremities or weakness in extremities Hipolito/Lymph: Denies: easy bruising or easy bleeding PFSH ED PFSH: Medical History Anemia Ascites Ascites ASHD (arteriosclerotic heart disease) Atrial fibrillation Cardiac defibrillator in place Cardiomyopathy CHF (congestive heart failure) Cholecystectomy planned Chronic antibiotic suppression Chronic systolic heart failure CKD (chronic kidney disease) Cystitis Diabetes Hyperlipidemia Hypertension Hypothyroidism Left ventricular assist device present Lower GI bleed requiring more than 4 units of blood in 24 hours, ICU, or surgery LVAD (left ventricular assist device) present LVAD (left ventricular assist device) present Mitral regurgitation Pulmonary hypertension Seizure disorder Thyroid nodule Surgical History H/O hernia repair H/O knee surgery H/O thyroidectomy Hx of appendectomy Family History Other CAD (coronary artery disease) Cancer Hypertension Social History Smoking and tobacco status: former smoker Alcohol intake: never Lives independently: No Household members: spouse Marital status: Physical Exam Const: COMMON NORMALS: no acute distress, patient oriented x3, no limitations and alert GENERAL APPEARANCE: cooperative HENMT: HEAD & SCALP: normal to inspection FACE & SINUS: normal facial exam Eye: GENERAL EYE: appearance normal, both eyes and all related structures Neck/C-Spine: COMMON NORMALS: supple, no meningeal signs and no JVD Chest: COMMONS NORMALS: normal inspection of the chest Resp: COMMON NORMALS: normal respiratory effort and No use of accessory muscles AUSCULTATION: diminished lung sounds Cardio: COMMON NORMALS: no JVD, regular rate, regular rhythm and No murmurs present (Cardio) RATE: regular rate RHYTHM: regular rhythm GI: INSPECTION: Yes abdominal distension and Yes other (LVAD ports with dressings in place. Right side of the abdomen has a small ) Back/Pelvis: COMMON NORMALS: thoracic and lumbar spine normal to inspection Extremity: COMMON NORMALS: negative for no pedal edema Neuro: COMMON NORMALS: patient oriented x3, moves all extremities, no focal motor deficits and no sensory deficits noted SENSORIUM/ORIENTATION: Yes alert MENINGEAL SIGNS: Yes no meningeal signs Psych: COMMON NORMALS: mental status grossly normal, cooperative and normal affect Skin: COMMON NORMALS: no rashes or lesions noted and turgor normal GENERAL SKIN EXAM: no rashes or lesions noted and turgor normal Course ED course: This patient is very end-stage with his heart failure and kidney failure. He and his understand this completely. I did give him some hypertonic saline and brought his sodium up slightly. I tried some Bumex but it did not really do much for him. He put out about 300 mL of urine. His BUN had increased when I rechecked it. The patient and his and I had a long discussion about end-of-life care and they both feel like they have everything they need with their doctors in [place] as well as Dr. Traore. They were not interested in a hospice referral. The patient really wanted to go home and I see no reason that he should not do so. Vital Signs: Vital signs: Vital Signs Temperature 97.5 F L 03/22/20 14:41 Pulse Rate 66 03/22/20 22:19 Respiratory Rate 18 03/22/20 22:19 Blood Pressure 102/67 03/22/20 22:19 Pulse Oximetry 96 03/22/20 22:19 [facility] - General Adult Lab Data: Labs: Lab Results 03/22/20 Range/Units 19:55 Sodium 123 L (136-145) mmol/L Potassium 4.7 (3.5-5.1) mmol/L Chloride 86 L (98-107) mmol/L Carbon Dioxide 21 L (22-29) mmol/L Anion Gap 20.7 H (5-19) BUN 91 H* (8-23) mg/dL Creatinine 4.4 H (0.7-1.2) mg/dL GFR Calculation Not Reportable Glucose 171 H (65-115) mg/dL Calculated Osmolal ity 288 (285-295) mOsm/k g Calcium 9.0 (8.5-10.5) mg/dL Discharge Plan Discharge Patient Disposition: Home Clinical Impression: Cardiomyopathy, Renal failure, chronic, Acute hyponatremia Condition: Stable Prescriptions: No Action levothyroxine 112 mcg capsule 112 mcg PO DAILY RF: 0 nitroglycerin [Nitrostat] 0.4 mg tablet, sublingual 0.4 mg SUBLINGUAL Q5M PRN (Reason: Chest Pain) RF: 0 polyethylene glycol 3350 [Miralax] 17 gram/dose powder 17 gm PO DAILY RF: 0 isosorbide mononitrate 60 mg tablet extended release 24 hr 90 mg PO DAILY RF: 0 bumetanide 2 mg tablet 8 mg PO BID RF: 0 folic acid 1 mg tablet 2 mg PO DAILY RF: 0 Lantus U-100 Insulin 100 unit/mL solution See Rx Instructions .ROUTE .COMPLEX RF: 0 allopurinol 300 mg tablet 150 mg PO DAILY RF: 0 potassium chloride 20 mEq tablet extended release 40 meq PO BID PRN (Reason: LOW POTASSIUM) RF: 0 insulin aspart U-100 [Novolog U-100 Insulin aspart] 100 unit/mL solution See Rx Instructions .ROUTE .COMPLEX RF: 0 ferrous gluconate 324 mg (38 mg iron) tablet 324 mg PO BID RF: 0 levetiracetam [Keppra] 750 mg tablet 750 mg PO BID RF: 0 sulfamethoxazole-trimethoprim [Bactrim DS] 800-160 mg tablet 1 tab PO DAILY RF: 0 rosuvastatin [Crestor] 20 mg tablet 10 mg PO DAILY RF: 0 fluconazole 100 mg tablet 100 mg PO DAILY Qty: 3 RF: 0 ondansetron HCl [Zofran] 4 mg Tablet 4 mg PO Q6H PRN (Reason: Nausea) RF: 0 tramadol 50 mg tablet 50 mg PO BEDTIME PRN (Reason: Pain) RF: 0 ascorbic acid (vitamin C) [Vitamin C] 500 mg Tablet 500 mg PO BID RF: 0 cholecalciferol (vitamin D3) [Vitamin D3] 50 mcg (2,000 unit) Capsule 50 mcg PO DAILY RF: 0 metolazone 2.5 mg tablet See Rx Instructions .ROUTE .COMPLEX RF: 0 amoxicillin 500 mg Tablet 500 mg PO BID RF: 0 Discharge Orders: Discharge Order (Routine); Ordered 03/22/20 Ordered By: Katlyn Granados Referrals: Jesus Rodriguez MD [Primary Care Provider] - Discharge Diet: Advance as tolerated Discharge Activity: Resume usual activity Patient Instructions: Hyponatremia (ED) Coding Level of Care Code ED Therapy Administrative Assistant for Addis Fwd Exam Comprehensive
--- NOTE | 2020-03-22 15:57 | ECG_ITS ---
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
[2020-03-22] MEDS: sodium chloride 3% 500 ML 50 ML IV (16:30)
[2020-03-22] MEDS: bumetanide 0.25 mg/mL SDV 10 mL 2 MG IV (16:30)
--- NOTE | 2020-03-22 19:19 | PC.NURSE ---
IV 3% sodium drip titrated to 150ml/hr per Dr. Granados.
[2020-03-22 20:23] LABS: Anion Gap 20.7 (5-19); Carbon Dioxide 21 mmol/L (22-29); Chloride 86 mmol/L (98-107); Glucose 171 mg/dL (65-115); Osmolality Calculated 288 mOsm/kg (285-295); Potassium 4.7 mmol/L (3.5-5.1); Sodium 123 mmol/L (136-145)
[2020-03-22 20:33] LABS: Blood Urea Nitrogen 91 mg/dL (8-23)
[2020-03-22 22:19] VITALS: BP 102/67; PULSE 66; RESP 18; O2SAT 96
[2020-03-22 23:34] LABS: Glucose Point of Care 192 mg/dL (70-110)
== END 2020-03-22 22:20 | disposition home or self-care (01) ==
PROVIDERS: Emergency Provider Emergency Medicine; PCP Family Medicine
DX: I13.0 Hypertensive heart and chronic kidney disease with heart failure and stage 1 through stage 4 chronic kidney disease, or unspecified chronic kidney disease (principal); E11.22 Type 2 diabetes mellitus with diabetic chronic kidney disease; N18.9 Chronic kidney disease, unspecified; I50.22 Chronic systolic (congestive) heart failure; I42.9 Cardiomyopathy, unspecified; E87.1 Hypo-osmolality and hyponatremia; Z79.4 Long term (current) use of insulin; I48.91 Unspecified atrial fibrillation; Z95.810 Presence of automatic (implantable) cardiac defibrillator; E78.5 Hyperlipidemia, unspecified; Z87.891 Personal history of nicotine dependence
CPT/HCPCS: 12345; 36416; 80048; 82962; 93005; 96361; 96374; 99283; J3490; J7131

== ENCOUNTER 2020-03-24 17:47 | Inpatient (IN) | payer MEDICARE, OTHER, SELFPAY ==
[2020-03-24] VITALS (7 sets, daily range): BP systolic 96–132; BP diastolic 74–90; PULSE 60–72; RESP 15–22; TEMP 35.8; O2SAT 95–98; BMI 33.3
--- NOTE | 2020-03-24 17:50 | XR_ITS ---
WS: [id number] Portable AP upright chest, 03/24/2020 Clinical Data: sob Comparison: Portable chest, 01/03/2020. Findings: No nodules, masses or effusions are seen. The heart is large. The pulmonary vascularity is not increased. No pneumonia or pneumothorax is seen. Midline sternotomy sutures are present. There is a permanent pacemaker with a left ventricular assist device. The diaphragms are flattened. The aorti c arch and descending aorta show tortuosity. XR/XR chest 1V portable [id number] Impression: 1. Cardiomegaly and atherosclerosis. 2. Hyperinflation. 3. Prominent pacemaker and ventricular assist device.
--- NOTE | 2020-03-24 17:51 | ECG_ITS ---
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 Measurements Intervals [place] Rate: 69 P: [place]: QRS: -90 QRSD: 194 T: 111 QT: 550 QTc: 593 Interpretive Statements ELECTRONIC VENTRICULAR PACEMAKER Compared to ECG 03/22/2020 14:40:15 No significant changes are noted Electronically Signed On 03-25-2020 17:29:39 DOG TRAINER by Glenn Altman M.D. [email or web address], [email or web address]/store/[id number]
[2020-03-24] MEDS: sodium chloride 0.9% 1,000 ML 100 ML IV (19:25)
--- NOTE | 2020-03-24 19:26 | ED_ITS ---
HPI - General Adult General: Chief complaint: General Medical Stated complaint: WEAKNESS / SHORT OF BREATH Time Seen by Provider: 03/24/20 18:03 Source: patient Mode of arrival: EMS Limitations: no limitations History of Present Illness: HPI narrative: Mr. Haddad is a nice 74-year-old male who comes in with shortness of breath and generalized weakness. Patient states he has a little bit of a headache. Patient states that he has had these symptoms several times in the past and it is usually due to a low sodium level. Patient denies any chest pain or syncope. He denies any confusion or altered mental status or excessive somnolence. Patient has an LVAD for heart failure and states that he has multiple complications from this. Patient states that he thinks his sodium is low and he will need some IV fluids to help bring it up. He otherwise denies any complaints or concerns. He specifically denies any fever, neck pain, chest pain, cough, abdominal pain, diarrhea, vomiting, or other complaint. Associated symptoms: Reports dyspnea; Deny chest pain, headache(s), nausea, rash, palpitations, syncope or vomiting Review of Systems Const: Denies: fever(s) Eyes: Denies: change in vision or blurry vision ENMT: Denies: throat pain, hoarseness or swelling of lips/tongue Card: Denies: chest pain, palpitations, syncope, pre-syncope or dyspnea on exertion Resp: Reports: dyspnea; Denies: productive cough, non-productive cough, wheezing, change in phlegm color or hemoptysis GI: Denies: abdominal pain, nausea, vomiting or diarrhea : Denies: flank pain, dysuria, urinary frequency or urinary urgency Musc: Denies: neck pain, back pain or extremity pain Skin/Breast: Denies: rash or pruritus Neuro: Denies: headache(s), numbness in extremities, weakness in extremities or dizziness Hipolito/Lymph: Denies: easy bruising, easy bleeding, petechiae or purpura All/Imm: Denies: urticaria or throat swelling PFSH ED PFSH: Medical History Anemia Ascites Ascites ASHD (arteriosclerotic heart disease) Atrial fibrillation Cardiac defibrillator in place Cardiomyopathy CHF (congestive heart failure) Cholecystectomy planned Chronic antibiotic suppression Chronic systolic heart failure CKD (chronic kidney disease) Cystitis Diabetes Hyperlipidemia Hypertension Hypothyroidism Left ventricular assist device present Lower GI bleed requiring more than 4 units of blood in 24 hours, ICU, or surgery LVAD (left ventricular assist device) present LVAD (left ventricular assist device) present Mitral regurgitation Pulmonary hypertension Seizure disorder Thyroid nodule Surgical History H/O hernia repair H/O knee surgery H/O thyroidectomy Hx of appendectomy Family History Other CAD (coronary artery disease) Cancer Hypertension Social History Smoking and tobacco status: former smoker Alcohol intake: never Lives independently: No Household members: spouse Marital status: Physical Exam Const: COMMON NORMALS: no acute distress, patient oriented x3, no limitations and alert GENERAL APPEARANCE: cooperative HENMT: COMMON NORMALS: normocephalic, atraumatic, external ears normal, EAC's normal and Normal external nose present HEAD & SCALP: normal to inspection, normocephalic and atraumatic FACE & SINUS: normal facial exam and face symmetric NOSE: Normal external nose present and Normal nares present EXTERNAL EAR: Yes external ears normal EXTERNAL AUDITORY CANAL: EAC's normal MOUTH: Normal oral and palatal mucosa present, lip normal and tongue normal Eye: COMMON NORMALS: Equal, round and reactive pupils present and conjunctivae normal GENERAL EYE: appearance normal, both eyes and all related structures ALIGNMENT: Yes alignment normal PERIORBITAL: periorbital findings normal EYELID: eyelids normal CONJUNCTIVA: Yes conjunctivae normal SCLERA: sclerae normal PUPIL: Yes Equal, round and reactive pupils present Neck/C-Spine: COMMON NORMALS: full ROM, no lymphadenopathy, supple and no meningeal signs GENERAL: Yes normal visual inspection and Yes trachea midline Chest: COMMONS NORMALS: normal inspection of the chest and normal palpation of entire chest wall Resp: COMMON NORMALS: normal respiratory effort, No retractions, No use of accessory muscles and clear to auscultation bilaterally EFFORT & INSPECTION: Yes able to speak in complete sentences and Yes symmetric chest movement AUSCULTATION: clear to auscultation bilaterally, no crackles, no rales, no rhonchi and no wheezes Cardio: HEART SOUNDS: Other heart sounds present (Chronic mechanical hum auscultated) GI: COMMON NORMALS: Soft to palpation and No hepatosplenomegaly present PALPATION: Yes Soft to palpation, No Tenderness to palpation present (GI), No Guarding due to palpation present (GI), No Rigid due to palpation, Yes No hepatosplenomegaly present, No Hernia present, No Palpable mass present and No Pulsatile mass present : COMMON NORMALS: Yes no CVA tenderness BLADDER/KIDNEY EXAM: Yes no CVA tenderness Back/Pelvis: COMMON NORMALS: no CVA tenderness, thoracic and lumbar spine normal to inspection, no thoracic nor lumbar tenderness and thoraco-lumbar ROM normal Extremity: COMMON NORMALS: normal to inspection, full ROM, capillary refill normal, no joint enlargement, no clubbing, cyanosis or edema and no calf tenderness Neuro: COMMON NORMALS: patient oriented x3, CN's II-XII intact bilaterally, moves all extremities, no focal motor deficits and no sensory deficits noted SENSORIUM/ORIENTATION: Yes alert MENINGEAL SIGNS: Yes no meningeal signs SPEECH: speech normal Psych: COMMON NORMALS: mental status grossly normal, Normal thought process present, cooperative, normal affect, speech normal and activity/motor behavior normal SPEECH: Yes normal speech THOUGHT PROCESS: Normal thought process present Skin: COMMON NORMALS: no rashes or lesions noted, turgor normal, no jaundice, no petechiae and no mottling GENERAL SKIN EXAM: no rashes or lesions noted and turgor normal Course Vital Signs: Vital signs: Vital Signs Temperature 96.4 F L 03/24/20 18:05 Pulse Rate 70 03/25/20 00:27 Respiratory Rate 18 03/25/20 00:14 Blood Pressure 132/94 03/25/20 00:14 Pulse Oximetry 95 03/25/20 00:27 MDM - General Adult MDM Narrative: Medical decision making narrative: Mr. Avina is a nice 74-year-old male who is currently dependent on an LVAD for his heart failure. He was to transfer to [place] and stated that he wanted to just be cared for here. I reviewed the case in full with Dr. Blanca who states he knows the patient well. He states the patient has end-stage renal disease, cirrhosis, heart failure among many other problems. The patient had expressed in the past to Dr. Blanca that he did not want any further aggressive care but wanted to be made comfort care. When the proposal of hospice had been put forward the patient stated he was not ready for that but Dr. Blanca says effectively that is what he is getting at this time. Dr. Blanca was okay with the patient being kept here if that is what he desired and even being put in hospice if necessary. I did review the possibilities for treatment with the patient and he wants to stay here. He does want to consider hospice. At this time he states he just wants to feel better and then he feels as though he will be able to help make a better decision. Lab Data: Attestation: I reviewed the patient's lab results. Labs: Lab Results 03/24/20 03/24/20 03/24/20 Range/Units 18:50 18:51 18:51 WBC 4.6 (4.0-10.0) 10^3/ uL RBC 2.63 L (4.1-5.3) 10^6/u L Hgb 8.3 L (11.7-16.6) g/dL Hct 25.5 L (42.0-52.0) % MCV 97.0 H (80-94) fL MCH 31.6 (28.0-34.0) pg MCHC 32.5 (30.0-36.0) g/dL RDW 16.5 H (12.1-15.1) % Plt Count 117 L (130-400) 10^3/c mm MPV 9.2 (7.4-10.4) fL Neut % (Auto) 83.6 % Lymph % (Auto) 5.9 % Frederick % (Auto) 8.4 % Eos % (Auto) 0.4 % Baso % (Auto) 0.2 % Neut # (Auto) 3.80 (1.8-7.7) 10^3/u L Lymph # (Auto) 0.3 L (0.8-4.8) 10^3/u L Frederick # (Auto) 0.4 (0.2-0.9) 10^3/u L Eos # (Auto) 0.0 (0.0-0.8) 10^3/u L Baso # (Auto) 0.0 (0.0-0.1) 10^3/u L Nucleated RBC % (a uto) 0.4 % Nucleated RBCs # 0.0 /100WBC PT (12.1-14.9) SECO NDS INR (0.8-1.2) APTT (23.9-36.7) SECO NDS Sodium 121 L (136-145) mmol/L Potassium 4.9 (3.5-5.1) mmol/L Chloride 84 L (98-107) mmol/L Carbon Dioxide 21 L (22-29) mmol/L Anion Gap 20.9 H (5-19) BUN 87 H* (8-23) mg/dL Creatinine 4.0 H (0.7-1.2) mg/dL GFR Calculation Not Reportable Glucose 178 H (65-115) mg/dL Calculated Osmolal ity 283 L (285-295) mOsm/k g Calcium 9.5 (8.5-10.5) mg/dL Magnesium 5.2 H* (1.7-2.3) mg/dL Total Bilirubin 0.3 (0.15-1.2) mg/dL AST 12 (0-40) U/L ALT 9 (0-41) U/L Alkaline Phosphata se 83 (40-130) IU/L Troponin T Baselin e (0-15) ng/L Troponin T 120 Min [place] (0-15) ng/L Delta Troponin T (0-10) ABS# NT-Pro-B Natriuret Pep 6984 H (0-125) pg/mL Total Protein 5.5 L (6.6-8.7) g/dL Albumin 3.7 (3.5-5.2) g/dL Globulin 1.8 (1.3-4.6) g/dL TSH 6.94 H (0.27-4.20) uIU/ mL Urine Color (Yellow) Urine Appearance (CLEAR) Urine pH (5-7) Ur Specific Gravit y (1.005-1.030) Urine Protein (Negative) Urine Glucose (UA) (Normal) Urine Ketones (Negative) Urine Blood (Negative) Urine Nitrate (Negative) Urine Bilirubin (Negative) Urine Urobilinogen (Negative) mg/dL Ur Leukocyte Shereen ase (Negative) SARS-CoV-2 Ag (Rap id) (Negative) 03/24/20 03/24/20 03/24/20 Range/Units 18:51 18:51 19:05 WBC (4.0-10.0) 10^3/ uL RBC (4.1-5.3) 10^6/u L Hgb (11.7-16.6) g/dL Hct (42.0-52.0) % MCV (80-94) fL MCH (28.0-34.0) pg MCHC (30.0-36.0) g/dL RDW (12.1-15.1) % Plt Count (130-400) 10^3/c mm MPV (7.4-10.4) fL Neut % (Auto) % Lymph % (Auto) % Frederick % (Auto) % Eos % (Auto) % Baso % (Auto) % Neut # (Auto) (1.8-7.7) 10^3/u L Lymph # (Auto) (0.8-4.8) 10^3/u L Frederick # (Auto) (0.2-0.9) 10^3/u L Eos # (Auto) (0.0-0.8) 10^3/u L Baso # (Auto) (0.0-0.1) 10^3/u L Nucleated RBC % (a uto) % Nucleated RBCs # /100WBC PT 13.60 (12.1-14.9) SECO NDS INR 1.01 (0.8-1.2) APTT 38.4 H (23.9-36.7) SECO NDS Sodium (136-145) mmol/L Potassium (3.5-5.1) mmol/L Chloride (98-107) mmol/L Carbon Dioxide (22-29) mmol/L Anion Gap (5-19) BUN (8-23) mg/dL Creatinine (0.7-1.2) mg/dL GFR Calculation Glucose (65-115) mg/dL Calculated Osmolal ity (285-295) mOsm/k g Calcium (8.5-10.5) mg/dL Magnesium (1.7-2.3) mg/dL Total Bilirubin (0.15-1.2) mg/dL AST (0-40) U/L ALT (0-41) U/L Alkaline Phosphata se (40-130) IU/L Troponin T Baselin e 89 H (0-15) ng/L Troponin T 120 Min [place] (0-15) ng/L Delta Troponin T (0-10) ABS# NT-Pro-B Natriuret Pep (0-125) pg/mL Total Protein (6.6-8.7) g/dL Albumin (3.5-5.2) g/dL Globulin (1.3-4.6) g/dL TSH (0.27-4.20) uIU/ mL Urine Color (Yellow) Urine Appearance (CLEAR) Urine pH (5-7) Ur Specific Gravit y (1.005-1.030) Urine Protein (Negative) Urine Glucose (UA) (Normal) Urine Ketones (Negative) Urine Blood (Negative) Urine Nitrate (Negative) Urine Bilirubin (Negative) Urine Urobilinogen (Negative) mg/dL Ur Leukocyte Shereen ase (Negative) SARS-CoV-2 Ag (Rap id) Negative (Negative) 03/24/20 03/24/20 Range/Units 20:38 20:55 WBC (4.0-10.0) 10^3/ uL RBC (4.1-5.3) 10^6/u L Hgb (11.7-16.6) g/dL Hct (42.0-52.0) % MCV (80-94) fL MCH (28.0-34.0) pg MCHC (30.0-36.0) g/dL RDW (12.1-15.1) % Plt Count (130-400) 10^3/c mm MPV (7.4-10.4) fL Neut % (Auto) % Lymph % (Auto) % Frederick % (Auto) % Eos % (Auto) % Baso % (Auto) % Neut # (Auto) (1.8-7.7) 10^3/u L Lymph # (Auto) (0.8-4.8) 10^3/u L Frederick # (Auto) (0.2-0.9) 10^3/u L Eos # (Auto) (0.0-0.8) 10^3/u L Baso # (Auto) (0.0-0.1) 10^3/u L Nucleated RBC % (a uto) % Nucleated RBCs # /100WBC PT (12.1-14.9) SECO NDS INR (0.8-1.2) APTT (23.9-36.7) SECO NDS Sodium (136-145) mmol/L Potassium (3.5-5.1) mmol/L Chloride (98-107) mmol/L Carbon Dioxide (22-29) mmol/L Anion Gap (5-19) BUN (8-23) mg/dL Creatinine (0.7-1.2) mg/dL GFR Calculation Glucose (65-115) mg/dL Calculated Osmolal ity (285-295) mOsm/k g Calcium (8.5-10.5) mg/dL Magnesium (1.7-2.3) mg/dL Total Bilirubin (0.15-1.2) mg/dL AST (0-40) U/L ALT (0-41) U/L Alkaline Phosphata se (40-130) IU/L Troponin T Baselin e (0-15) ng/L Troponin T 120 Min [place] 89.77 H (0-15) ng/L Delta Troponin T 0.77 (0-10) ABS# NT-Pro-B Natriuret Pep (0-125) pg/mL Total Protein (6.6-8.7) g/dL Albumin (3.5-5.2) g/dL Globulin (1.3-4.6) g/dL TSH (0.27-4.20) uIU/ mL Urine Color Yellow (Yellow) Urine Appearance Clear (CLEAR) Urine pH 5.0 (5-7) Ur Specific Gravit y 1.015 (1.005-1.030) Urine Protein Neg (Negative) Urine Glucose (UA) Norm (Normal) Urine Ketones Negative (Negative) Urine Blood Neg (Negative) Urine Nitrate Negative (Negative) Urine Bilirubin Neg (Negative) Urine Urobilinogen Norm (Negative) mg/dL Ur Leukocyte Shereen ase Negative (Negative) SARS-CoV-2 Ag (Rap id) (Negative) Imaging Data^: CXR: Attestation: I personally reviewed and interpreted this imaging study as follows: My impression: Cardiomegaly, defibrillator in place. LVAD tubing noted. Possible mild pulmonary vascular congestion. EKG Data^: EKG 1: Attestation: I personally reviewed and interpreted this EKG as follows: EKG interpretation date: 03/24/20 EKG interpretation time: 18:04 Interpretation: AV sequential pacemaker @ 69, normal discordance, prolonged QTC - 570 Discharge Plan Discharge Patient Disposition: Admitted As Inpatient Admit Provider: Abhay Moore Coding Level of Care Code ED Coil Shaper for Chg Fwd Exam Comprehensive
[2020-03-24 19:28] LABS: Basophils % 0.2 %; Eosinophils % 0.4 %; Hematocrit 25.5 % (42.0-52.0); Hemoglobin 8.3 g/dL (11.7-16.6); Lymphocytes # 0.3 10^3/uL (0.8-4.8); Lymphocytes % 5.9 %; Mean Corpuscular HGB Conc 32.5 g/dL (30.0-36.0); Mean Corpuscular Hemoglobin 31.6 pg (28.0-34.0); Mean Platelet Volume 9.2 fL (7.4-10.4); Monocytes # 0.4 10^3/uL (0.2-0.9); Monocytes % 8.4 %; Neutrophils % 83.6 %; Nucleated Red Blood Cells % 0.4 %; Platelet Count 117 10^3/cmm (130-400); Red Blood Count 2.63 10^6/uL (4.1-5.3); Red Cell Distribution Width 16.5 % (12.1-15.1); White Blood Count 4.6 10^3/uL (4.0-10.0)
[2020-03-24 19:38] LABS: INR 1.01 (0.8-1.2)
[2020-03-24 19:39] LABS: Partial Thromboplastin Time 38.4 SECONDS (23.9-36.7)
--- NOTE | 2020-03-24 19:40 | ECG_ITS ---
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 Measurements Intervals [place] Rate: 69 P: [place]: QRS: -70 QRSD: 157 T: 89 QT: 373 QTc: 402 Interpretive Statements ELECTRONIC VENTRICULAR PACEMAKER Compared to ECG 03/24/2020 18:04:24 No significant changes are noted Electronically Signed On 03-25-2020 17:40:51 INTERNATIONAL RELATIONS TEACHER by Glenn Altman M.D. [id number] f
[2020-03-24 19:50] LABS: Troponin(5th) Baseline 89 ng/L (0-15)
[2020-03-24 19:52] LABS: SARS Covid-2 Antigen Negative (Negative)
[2020-03-24 19:53] LABS: Alanine Aminotransferase 9 U/L (0-41); Albumin Level 3.7 g/dL (3.5-5.2); Alkaline Phosphatase 83 IU/L (40-130); Anion Gap 20.9 (5-19); Aspartate Amino Transferase 12 U/L (0-40); Calcium 9.5 mg/dL (8.5-10.5); Carbon Dioxide 21 mmol/L (22-29); Chloride 84 mmol/L (98-107); Globulin 1.8 g/dL (1.3-4.6); Glucose 178 mg/dL (65-115); NT Pro B Type Natriuretic Pept 6984 pg/mL (0-125); Osmolality Calculated 283 mOsm/kg (285-295); Potassium 4.9 mmol/L (3.5-5.1); Sodium 121 mmol/L (136-145); Thyroid Stimulating Hormone 6.94 uIU/mL (0.27-4.20); Total Bilirubin 0.3 mg/dL (0.15-1.2); Total Protein 5.5 g/dL (6.6-8.7)
[2020-03-24 19:58] LABS: Blood Urea Nitrogen 87 mg/dL (8-23)
--- NOTE | 2020-03-24 20:47 | PC.NURSE ---
BC collected st stick with Trop and sent to lab
[2020-03-24 20:51] LABS: Magnesium 5.2 mg/dL (1.7-2.3)
[2020-03-24 21:13] LABS: Add Urine Microscopic? NO
--- NOTE | 2020-03-24 21:32 | PC.NURSE ---
2nd BC from [facility] per pt's request
[2020-03-24 21:36] LABS: Bilirubin Urine Neg (Negative); Blood Urine Neg (Negative); Glucose Urine UA Norm (Normal); Ketones Urine Negative (Negative); Leukocyte Esterase Urine Negative (Negative); Nitrate Urine Negative (Negative); Protein Urine Neg (Negative); Specific Gravity, Urine 1.015 (1.005-1.030); Urine Appearance Clear (CLEAR); Urine Color Yellow (Yellow); Urobilinogen Urine Norm (Negative)
[2020-03-24 21:37] LABS: Troponin 5 2HR 89.77 ng/L (0-15); Troponin 5 2HR Delta 0.77 ABS# (0-10)
[2020-03-24] MEDS: FUROsemide 10 mg/mL SDV 4mL 40 MG IVP (23:40)
[2020-03-25] VITALS (15 sets, daily range): BP systolic 92–132; BP diastolic 50–94; PULSE 66–81; RESP 12–18; TEMP 35.6–37.1; O2SAT 95–100
--- NOTE | 2020-03-25 00:12 | PC.NURSE ---
Patient arrived to the floor from the ED after report was received via phone. ED nurse states that patient refused mireles catheter placement in ED. Patient is alert and oriented. Patient states that he walks at home with a walker. Patient has been oriented to his room, has call light within reach, and has been educated not to get up without assistance. Patient currently has a brief on that is clean and dry and chucks were placed under patient per his request. 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 Patient has LVAD device. (Eliana) and patient are caretakers of it at home. Patient states my skin tears real easy.
--- NOTE | 2020-03-25 00:21 | PC.NURSE ---
pt states during pt rounding he would like to speak with the Dr regarding starting hospice care
--- NOTE | 2020-03-25 00:23 | PC.NURSE ---
pt spouse requested to accompany staff to [facility] for inservice for pt's LVAD. Request approved by medical housekeeper
--- NOTE | 2020-03-25 00:51 | PM.HP ---
Providers/Chief Complaint Admitting Physician: Abhay Moore MD Primary Care Provider: Jesus Rodriguez MD Chief Complaint: WEAKNESS / SHORT OF BREATH History of Present Illness Marvel Haddad is a 74 year old male with past medical history of coronary artery disease, heart failure with reduced ejection secondary to ischemic cardiomyopathy on LVAD (2013) for the last 6 years, hypothyroidism, diabetes type 2, gout, seizure disorder, CKD Stage IV 2/2 cardiorenal syndrome, came in with chief complaint of progressively worsening shortness of breath and generalized weakness going on for the last couple of days. Patient attributes this to hyponatremia, according to him whenever his sodium goes down he starts having these symptoms.Patient has an LVAD for heart failure and states that he has multiple complications from this.He otherwise denies any complaints or concerns.He specifically denies any fever, neck pain, chest pain, cough, abdominal pain, diarrhea, vomiting, or other complaint. Of note: [facility] C[facility] [employer]er at [facility] was contacted and he was willing to take the patient, patient wants to stay here, as the family is considering, comfort care ECA course. X-ray chest: Bilateral pleural effusion left greater than right. No infiltrates. Minimal pulmonary vascular congestion. EKG: Ventricular paced rhythm Pertinent lab: H&H: 7.8/ 23 WBC: 4000 BUN/creatinine: 82/3.8 (baseline creatinine: 2.2-3.5 ) , serum sodium: 121 Troponin: Baseline: 89, 2-hour: 89.77-delta: 0.77 proBNP: 6984 ECA medication: Lasix 40 IV x1 dose Review of Systems Const: Denies: fever(s) or change in appetite Card: Denies: palpitations Resp: Denies: productive cough, wheezing or pain on inspiration GI: Denies: nausea, diarrhea or constipation : Denies: flank pain Musc: Denies: back pain, extremity pain or extremity swelling Neuro: Denies: headache(s), difficulty walking or confusion Medications/Allergies Home Medications Medication Instructions Recorded Confirmed Last Taken Type allopurinol 300 mg tablet 150 mg PO DAILY 07/23/19 03/24/20 03/24/20 History bumetanide 2 mg tablet 8 mg PO BID tab 07/23/19 03/24/20 03/24/20 History ferrous gluconate 324 mg (38 mg 324 mg PO BID 07/23/19 03/24/2003/24/20 History iron) tablet folic acid 1 mg tablet 2 mg PO DAILY tab 07/23/19 03/24/20 03/24/20 History insulin aspart U-100 100 unit/mL See Rx Instructions .ROUTE .COMPLEX 07/23/19 03/24/20 03/24/20 History subcutaneous solution insulin glargine 100 unit/mL See Rx Instructions .ROUTE 07/23/19 03/24/20 03/22/20 History subcutaneous solution .COMPLEX ml isosorbide mononitrate 60 mg 90 mg PO DAILY tab 07/23/19 03/24/20 03/24/20 History tablet,extended release 24 hr levetiracetam 750 mg tablet 750 mg PO BID 07/23/19 03/24/20 03/24/20 History levothyroxine 112 mcg capsule 112 mcg PO DAILY 07/23/19 03/24/20 03/24/20 History nitroglycerin 0.4 mg sublingual 0.4 mg SUBLINGUAL Q5M PRN 07/23/19 03/24/20 03/24/20 History tablet polyethylene glycol 3350 17 17 gm PO DAILY 07/23/19 03/24/20 03/24/20 History gram/dose oral powder potassium chloride 20 mEq 40 meq PO BID PRN tab 07/23/19 03/24/20 12/29/19 History tablet,extended release sulfamethoxazole 800 1 tab PO DAILY 07/23/19 03/24/20 03/24/20 History mg-trimethoprim 160 mg tablet ondansetron HCl [Zofran] 4 mg PO Q6H PRN 01/02/20 03/24/20 03/24/20 History tramadol 50 mg PO BEDTIME PRN 01/02/20 03/24/20 03/23/20 History ascorbic acid (vitamin C) [Vitamin 500 mg PO BID 01/17/20 03/24/20 03/24/20 History C] cholecalciferol (vitamin D3) 50 mcg PO DAILY 01/17/20 03/24/20 03/24/20 History [Vitamin D3] rosuvastatin 20 mg tablet 10 mg PO DAILY tab 01/28/20 03/24/20 03/24/20 History fluconazole 100 mg tablet 100 mg PO DAILY #3 tab 02/26/20 03/24/20 03/24/20 Rx amoxicillin 500 mg PO BID 03/22/20 03/24/20 03/24/20 History metolazone See Rx Instructions .ROUTE .COMPLEX 03/22/20 03/24/20 Unknown History Allergies Allergy/AdvReac Type Severity Reaction Status Date / Time clindamycin Allergy Unknown unknown Verified 03/24/20 18:08 cyclobenzaprine Allergy Unknown unknown Verified 03/24/20 18:08 fenofibrate [From Tricor] Allergy Unknown Unknown Verified 03/24/20 18:08 gabapentin Allergy Unknown unknown Verified 03/24/20 18:08 gemfibrozil Allergy Unknown unknwon Verified 03/24/20 18:08 hydrocodone Allergy Unknown unknown Verified 03/24/20 18:08 lisinopril Allergy Unknown unknown Verified 03/24/20 18:08 metolazone Allergy Unknown unknown Verified 03/24/20 18:08 niacin Allergy Unknown unknown Verified 03/24/20 18:08 [From Niaspan Extended-Release] Opioids - Morphine Analogues Allergy Unknown unknown Verified 03/24/20 18:08 pantoprazole [From Protonix] Allergy Unknown unknown Verified 03/24/20 18:08 prednisone Allergy Unknown unknown Verified 03/24/20 18:08 PFSH Acute PFSH: Medical History (Updated 03/25/20 @ 14:25 by Riley Magana MD) Anemia Ascites Ascites ASHD (arteriosclerotic heart disease) Atrial fibrillation Cardiac defibrillator in place Cardiomyopathy CHF (congestive heart failure) Cholecystectomy planned Chronic antibiotic suppression Chronic systolic heart failure CKD (chronic kidney disease) Cystitis Diabetes Hyperlipidemia Hypertension Hypothyroidism Left ventricular assist device present Lower GI bleed requiring more than 4 units of blood in 24 hours, ICU, or surgery LVAD (left ventricular assist device) present LVAD (left ventricular assist device) present Mitral regurgitation Pulmonary hypertension Seizure disorder Thyroid nodule Surgical History H/O hernia repair H/O knee surgery H/O thyroidectomy Hx of appendectomy Family History Other CAD (coronary artery disease) Cancer Hypertension Social History Smoking and tobacco status: former smoker Alcohol intake: never Lives independently: No Household members: spouse Marital status: Vitals/I&O/Wt Last Vital Signs Temp 96.4 F L 03/24/20 18:05 Pulse 70 03/25/20 00:27 Resp 18 03/25/20 00:14 BP 132/94 03/25/20 00:14 Pulse Ox 95 03/25/20 00:27 Weight last 48 hrs Weight 96.615 kg Physical Exam Const: COMMON NORMALS: patient oriented x3 HENMT: COMMON NORMALS: normocephalic and atraumatic HEAD & SCALP: normocephalic and atraumatic Eye: COMMON NORMALS: no scleral icterus GENERAL EYE: appearance normal, both eyes and all related structures Chest: COMMONS NORMALS: normal inspection of the chest CHEST: Yes Symmetrical chest wall rise Resp: COMMON NORMALS: normal respiratory effort, No retractions and No use of accessory muscles EFFORT & INSPECTION: Yes symmetric chest movement OTHER: Lung sounds are diminished due to at presence of LVAD, grossly clear Cardio: COMMON NORMALS: regular rate, regular rhythm, S1 normal heart sound present, S2 normal heart sound present, No gallops present (Cardio), No murmurs present (Cardio), No rub (Cardio) and Peripheral pulses 2+ throughout RATE: regular rate RHYTHM: regular rhythm PERIPHERAL PULSES: Peripheral pulses 2+ throughout OTHER: Heart sounds are difficult to appreciate due to presence of LVAD GI: COMMON NORMALS: Normal to inspection, nondistended, normoactive bowel sounds present, Soft to palpation, non-tender, No hepatosplenomegaly present and no masses AUSCULTATION: Yes normoactive bowel sounds RECTAL EXAM: Yes deferred OTHER: Distended abdomen, with fluid thrill due to ascites Extremity: OTHER: 3+ bilateral pitting edema present in both lower extremity Neuro: COMMON NORMALS: patient oriented x3 Data : 03/25/20 05:00 03/25/20 05:00 Micro: Microbiology 03/24/20 21:30 Blood Culture - Preliminary Blood SPECIMEN COLLECTED 03/24/20 20:38 Blood Culture - Preliminary Blood SPECIMEN COLLECTED A&P Assessment and plan (1) FELICIA (acute kidney injury): FELICIA on Progressively worsening CKD stage III/IV LIKELY 2/2 to CRS , HRS secondary to cirrhosis secondary to hepatic congestopathy secondary to end-stage heart failure. Continue with Bumex oral. Strict intake output chart Avoid nephrotoxic Renal on board. Status: Acute (2) Hyponatremia: Acute on chronic severe symptomatic hypervolemic hyponatremia, in the setting of high ADH resulting from 6 congestive cirrhosis secondary to end-stage heart failure. Continue Bumex he is a candidate for vaptans. Avoid IV fluids Avoid salt Monitor BMP Status: Acute (3) LVAD (left ventricular assist device) present: Status: Acute (4) Chronic systolic heart failure: Continue Bumex Status: Acute (5) Seizure disorder: Continue Keppra Status: Acute (6) Hypothyroidism: Continue levo Status: Acute (7) Hypertension: Currently normotensive Status: Acute (8) Diabetes: Sliding scale insulin Monitor fingerstick glucose Status: Acute (9) Atrial fibrillation: History of atrial fibrillation, currently rate controlled Telemetry Status: Acute Qualifiers: Atrial fibrillation type: longstanding persistent Qualified Code(s): I48.11 - Longstanding persistent atrial fibrillation (10) ASHD (arteriosclerotic heart disease): Status: Acute (11) Ascites: On recurrent ascites drainage. Consider ascites TAP Status: Inactive Qualifiers: Ascites type: other type Qualified Code(s): R18.8 - Other ascites (12) Pulmonary hypertension: Status: Acute (13) Chronic antibiotic suppression: Status: Acute (14) Generalized weakness: Status: Acute Additional A&P Information CODE STATUS: AND (candidate for comfort care , family planning for comfort care ) DVT prophylaxis: Disposition: Home with likely home hospice Attestations Medical Necessity Statement*: Patient needs to be in hospital for management of severe symptomatic hyponatremia, FELICIA on worsening CKD. Anticipated length of stay is greater than 2 midnight. Coding Level of Care Code Acute Research Program Assistant for [facility] Fwd Exam Detailed Diagnoses FELICIA (acute kidney injury) N17.9 Hyponatremia E87.1 LVAD (left ventricular assist device) present Z95.811 Chronic systolic heart failure I50.22 Seizure disorder G40.909 Hypothyroidism E03.9 Hypertension I10 Diabetes E11.9 Atrial fibrillation I48.11 Atrial fibrillation type: longstanding persistent ASHD (arteriosclerotic heart disease) I25.10 Ascites R18.8 Ascites type: other type Pulmonary hypertension I27.20 Chronic antibiotic suppression Z79.2 Generalized weakness R53.1
--- NOTE | 2020-03-25 01:03 | PC.NURSE ---
Patient states they are going to put me on hospice, I don't want any kind of resuscitation.
--- NOTE | 2020-03-25 01:10 | PC.NURSE ---
Patient used a bedpan for a bowel movement per his request. Patient also asked for assistance with using his urinal. He states his takes care of him at home.
[2020-03-25 01:24] LABS: Troponin 5 6HR 91.54 ng/L (0-15); Troponin 5 6HR Delta 2.54 ng/L (0-12)
[2020-03-25] MEDS: heparin 5,000 unit/mL INJ 1 mL 5000 UNIT SUBCUT ×2 (02:44→14:21)
[2020-03-25 05:34] LABS: Eosinophils # 0.1 10^3/uL (0.0-0.8); Eosinophils % 1.3 %; Hematocrit 23.6 % (42.0-52.0); Hemoglobin 7.8 g/dL (11.7-16.6); Lymphocytes # 0.5 10^3/uL (0.8-4.8); Mean Corpuscular HGB Conc 33.1 g/dL (30.0-36.0); Mean Corpuscular Hemoglobin 31.6 pg (28.0-34.0); Mean Corpuscular Volume 95.5 fL (80-94); Mean Platelet Volume 8.9 fL (7.4-10.4); Monocytes # 0.4 10^3/uL (0.2-0.9); Neutrophils # 2.92 10^3/uL (1.8-7.7); Neutrophils % 73.2 %; Nucleated Red Blood Cells % 0 %; Platelet Count 97 10^3/cmm (130-400); Red Blood Count 2.47 10^6/uL (4.1-5.3); Red Cell Distribution Width 16.4 % (12.1-15.1)
[2020-03-25] MEDS: ondansetron 2 mg/ML SDV 2 mL 4 MG IVP (05:38)
--- NOTE | 2020-03-25 05:49 | ECG_ITS ---
[facility] Test Date: 2020-03-25 Pat Name: Marvel Haddad Department: Room: 101 Gender: Male Social Work Associate: : [id number] Requested By: Abhay Moore Order Number: [id number] Cassie MD: Glenn Altman M.D. Measurements Intervals [place] Rate: 69 P: ID: QRS: 263 QRSD: 153 T: 124 QT: 381 QTc: 410 Interpretive Statements ELECTRONIC VENTRICULAR PACEMAKER Compared to ECG 03/24/2020 20:41:59 No significant changes Electronically Signed On 03-25-2020 17:38:28 ART CONSERVATOR by Glenn Altman M.D. [id number]
[2020-03-25 05:56] LABS: Add Urine Microscopic? NO
[2020-03-25 05:59] LABS: INR 1.04 (0.8-1.2)
[2020-03-25 05:59] LABS: Bilirubin Urine Neg (Negative); Blood Urine Neg (Negative); Glucose Urine UA Norm (Normal); Ketones Urine Negative (Negative); Leukocyte Esterase Urine Negative (Negative); Nitrate Urine Negative (Negative); Protein Urine Neg (Negative); Specific Gravity, Urine 1.015 (1.005-1.030); Urine Appearance Clear (CLEAR); Urine Color Yellow (Yellow); Urobilinogen Urine Norm (Negative)
[2020-03-25 06:00] LABS: Partial Thromboplastin Time 31.1 SECONDS (23.9-36.7)
[2020-03-25 06:04] LABS: Alanine Aminotransferase 8 U/L (0-41); Albumin Level 3.1 g/dL (3.5-5.2); Alkaline Phosphatase 70 IU/L (40-130); Anion Gap 21.5 (5-19); Aspartate Amino Transferase 11 U/L (0-40); Calcium 8.8 mg/dL (8.5-10.5); Carbon Dioxide 19 mmol/L (22-29); Chloride 85 mmol/L (98-107); Globulin 2.1 g/dL (1.3-4.6); Glucose 131 mg/dL (65-115); Osmolality Calculated 279 mOsm/kg (285-295); Phosphorus 6.3 mg/dL (2.5-4.5); Potassium 4.5 mmol/L (3.5-5.1); Sodium 121 mmol/L (136-145); Total Bilirubin 0.3 mg/dL (0.15-1.2); Total Protein 5.2 g/dL (6.6-8.7)
[2020-03-25 06:05] LABS: Procalcitonin 0.28 ng/mL (0-0.5)
[2020-03-25 06:06] LABS: Blood Urea Nitrogen 82 mg/dL (8-23); Magnesium 4.9 mg/dL (1.7-2.3)
[2020-03-25] MEDS: isosorbide mononitrate ER 60 mg Tablet 90 MG PO (08:34)
[2020-03-25] MEDS: folic acid 1 mg Tablet 2 MG PO (08:34)
[2020-03-25] MEDS: allopurinol 300 mg Tablet 150 MG PO (08:34)
[2020-03-25] MEDS: docusate sodium 100 mg Capsule PO ×2 (08:34→17:07)
[2020-03-25] MEDS: cholecalciferol (vitamin D3) 1,000 unit Tablet 2000 UNIT PO (08:35)
[2020-03-25] MEDS: sulfamethoxazole-trimeth DS 160-800 mg Tablet 1 TAB PO (08:35)
[2020-03-25] MEDS: levothyroxine 112 mcg Tablet PO (08:37)
[2020-03-25] MEDS: ascorbic acid 500 mg Tablet PO ×2 (08:37→17:07)
[2020-03-25] MEDS: levETIRAcetam 500 mg Tablet 750 MG PO ×2 (08:37→17:06)
[2020-03-25] MEDS: ferrous gluconate 324 mg Tablet PO ×2 (08:37→17:07)
[2020-03-25] MEDS: fluconazole 100 mg Tablet PO (08:37)
[2020-03-25] MEDS: amoxicillin 500 mg Capsule PO ×2 (08:37→17:07)
[2020-03-25] MEDS: bumetanide 1 mg Tablet 4 MG PO ×2 (08:45→17:06)
--- NOTE | 2020-03-25 10:26 | P.PN_ITS ---
Subjective Subjective: Interval history: He is feeling weak. He asks about his sodium. He is agreeable to treat his hyponatremia but overall is interested with setting up with hospice care. Vitals/I&O/Wt Last Vital Signs Temp 96.3 F L 03/25/20 07:00 Pulse 70 03/25/20 08:12 Resp 16 03/25/20 07:00 BP 98/54 03/25/20 07:00 Pulse Ox 95 03/25/20 08:12 03/24/20 03/25/20 03/25/20 22:59 06:59 14:59 Intake Total 200 / 200 240 / 240 Output Total 350 / 350 100 / 100 Balance -150 / -150 140 / 140 Weight last 48 hrs Weight 96.615 kg Physical Exam Const: COMMON NORMALS: no acute distress, patient oriented x3 and alert GENERAL APPEARANCE: cooperative and frail appearing ORIENTATION/CONSCIOUSNESS: Yes awake HENMT: COMMON NORMALS: oropharynx normal Neck/C-Spine: COMMON NORMALS: no JVD Resp: COMMON NORMALS: normal respiratory effort and clear to auscultation bilaterally AUSCULTATION: clear to auscultation bilaterally Cardio: COMMON NORMALS: no JVD, regular rhythm, S1 normal heart sound present, S2 normal heart sound present and No murmurs present (Cardio) RHYTHM: regular rhythm HEART SOUNDS: S1 normal heart sound present and S2 normal heart sound present GI: COMMON NORMALS: Normal to inspection, nondistended, normoactive bowel sounds present, Soft to palpation and non-tender PALPATION: Yes Soft to palpation Extremity: COMMON NORMALS: no joint enlargement GENERAL: Yes edema (2+ LEs and hands) Neuro: COMMON NORMALS: patient oriented x3 and moves all extremities SENSORIUM/ORIENTATION: Yes alert Skin: COMMON NORMALS: no rashes or lesions noted GENERAL SKIN EXAM: no rashes or lesions noted Data : 03/25/20 05:00 03/25/20 05:00 Micro: Microbiology 03/24/20 21:30 Blood Culture - Preliminary Blood SPECIMEN COLLECTED 03/24/20 20:38 Blood Culture - Preliminary Blood SPECIMEN COLLECTED A&P Assessment and plan (1) Generalized weakness: Multifactorial with acute kidney injury, hyponatremia, chronic systolic heart failure with LVAD, hypothyroidism, ascites. We are working on trying to get his sodium better. Appreciate nephrology assistance. Also try to see if we can arrange for paracentesis for ascites. Diuresis for hyponatremia, CHF. He would not wish to receive hemodialysis as stated by him to myself and nephrology physician. Overall he expresses that he would like to set up with hospice services. Appreciate care coordination assistance with this for him and his family. Status: Acute (2) FELICIA (acute kidney injury): He would not wish to receive hemodialysis. Appreciate nephrology consultation and recommendations. Status: Acute (3) Hyponatremia: IV fluids discontinued. Appreciate nephrology recommendations, initiation of conivaptan. Continue diuretics. Status: Acute (4) Ascites: Will see if can set up paracentesis. Last was on 03/22. D/w radiology. Severino US to assess. Status: Acute (5) LVAD (left ventricular assist device) present: Status: Acute (6) Chronic systolic heart failure: Discussed with his esthetician/skin therapist Dr. Melendez. Status: Acute (7) Seizure disorder: Status: Acute (8) Hypothyroidism: Suspect this may be due to malabsorption of medications, with edema, ascites. He is being diuresed, will attempt to arrange paracentesis. Check free T4 free T3. Status: Acute (9) Hypertension: Status: Acute (10) Diabetes: Status: Acute (11) ASHD (arteriosclerotic heart disease): Status: Acute (12) Pulmonary hypertension: Status: Acute (13) Chronic antibiotic suppression: Status: Acute (14) Atrial fibrillation: Status: Acute Qualifiers: Atrial fibrillation type: longstanding persistent Qualified Code(s): I48.11 - Longstanding persistent atrial fibrillation Additional A&P Information CODE STATUS: AND DVT prophylaxis: heparin Disposition: Home with hospice Attestations Medical Necessity Statement*: Continue admission for assessment of management of acute kidney injury, hyponatremia, CHF, ascites, generalized weakness in the setting of chronic systolic congestive heart failure with LVAD support and a number of additional comorbidities. Coding Level of Care Code Acute [employer] Consultant for [facility] Fwd Exam Comprehensive Diagnoses Generalized weakness R53.1 FELICIA (acute kidney injury) N17.9 Hyponatremia E87.1 Ascites R18.8 LVAD (left ventricular assist device) present Z95.811 Chronic systolic heart failure I50.22 Seizure disorder G40.909 Hypothyroidism E03.9 Hypertension I10 Diabetes E11.9 ASHD (arteriosclerotic heart disease) I25.10 Pulmonary hypertension I27.20 Chronic antibiotic suppression Z79.2 Atrial fibrillation I48.11 Atrial fibrillation type: longstanding persistent
[2020-03-25 10:35] LABS: Glucose Point of Care 199 mg/dL (70-110)
[2020-03-25] MEDS: ondansetron 4 MG Tablet PO (10:35)
--- NOTE | 2020-03-25 11:53 | P.CONIM_ITS ---
Providers/Reason For Consult Consulting Physican/Specialty*: Nephrology Reason for Consult*: Evaluation of hyponatremia and CKD Attending Physician: Riley Magana Primary Care Provider: Jesus Rodriguez MD History of Present Illness History of Present Illness Marvel Haddad is a 74 year old male. Thank you for consultation. Today I reviewed this 74-year-old gentleman for evaluation of acute kidney injury and severe hyponatremia. He has end-stage ischemic cardiomyopathy with an LVAD that was placed back in 2013. He presents on this particular occasion with progressively worsening shortness of breath, generalized weakness that has been progressively increasing over the last couple of days. Following admission he is now on BiPAP. Chest x-ray demonstrated bilateral pleural effusions, minimal pulmonary vascular congestion, no other infiltrates. He has significant lower extremity edema, significant scrotal edema also. It appears that he has chronic hyponatremia, his sodium was 120 back on March 15, March 22 done at 119, yesterday 121 and today 121. Of note on January 25 his sodium was 131. He has been previously told to reduce his water intake less than 1500 mL and he is compliant with this recommendation. He takes combination of Bumex and metolazone for congestive heart failure. Metolazone was added a few months ago. Following hospitalization his urine output has been pretty minimal. He is known to have chronic kidney disease and follows with Dr. Dm Traore. He was previously counseled about potentially needing dialysis, and at this time they do not wish to undergo such invasive therapy. It appears that his serum creatinine ranges between 3 and 4 mg/dL. He denies any other recent exposure to potentially nephrotoxic substances. Hemodynamics have been soft following hospitalization with blood pressure 100/70 but his heart rate has been normal. Review of Systems Narrative: ROS - 12 point review of systems completed per HPI and subjective assessment, this includes Constitutional: Weakness, fatigue Respiratory: SOB on exertion, comfortable at rest CardioVasc: No chest pain, palpitations Gastrointestinal: No nausea, no vomiting Neurological: No seizures, no AMS Derm: No new rashes, lesions or wounds Immunological: No seasonal and no food allergies Meds/Allergies Home Medications and Allergies Home Medications Medication Instructions Recorded Confirmed Last Taken Type allopurinol 300 mg tablet 150 mg PO DAILY 07/23/19 03/24/20 03/24/20 History bumetanide 2 mg tablet 8 mg PO BID tab 07/23/19 03/24/20 03/24/20 History ferrous gluconate 324 mg (38 mg 324 mg PO BID 07/23/19 03/24/20 03/24/20 History iron) tablet folic acid 1 mg tablet 2 mg PO DAILY tab 07/23/19 03/24/20 03/24/20 History insulin aspart U-100 100 unit/mL See Rx Instructions .ROUTE .COMPLEX 07/23/19 03/24/20 03/24/20 History subcutaneous solution insulin glargine 100 unit/mL See Rx Instructions .ROUTE 07/23/19 03/24/20 03/22/20 History subcutaneous solution .COMPLEX ml isosorbide mononitrate 60 mg 90 mg PO DAILY tab 07/23/19 03/24/20 03/24/20 History tablet,extended release 24 hr levetiracetam 750 mg tablet 750 mg PO BID 07/23/19 03/24/20 03/24/20 History levothyroxine 112 mcg capsule 112 mcg PO DAILY 07/23/19 03/24/20 03/24/20 History nitroglycerin 0.4 mg sublingual 0.4 mg SUBLINGUAL Q5M PRN 07/23/19 03/24/20 03/24/20 History tablet polyethylene glycol 3350 17 17 gm PO DAILY 07/23/19 03/24/20 03/24/20 History gram/dose oral powder potassium chloride 20 mEq 40 meq PO BID PRN tab 07/23/19 03/24/20 12/29/19 History tablet,extended release sulfamethoxazole 800 1 tab PO DAILY 07/23/19 03/24/20 03/24/20 History mg-trimethoprim 160 mg tablet ondansetron HCl [Zofran] 4 mg PO Q6H PRN 01/02/20 03/24/20 03/24/20 History tramadol 50 mg PO BEDTIME PRN 01/02/20 03/24/20 03/23/20 History ascorbic acid (vitamin C) [Vitamin 500 mg PO BID 01/17/20 03/24/20 03/24/20 History C] cholecalciferol (vitamin D3) 50 mcg PO DAILY 01/17/20 03/24/20 03/24/20 History [Vitamin D3] rosuvastatin 20 mg tablet 10 mg PO DAILY tab 01/28/20 03/24/20 03/24/20 History fluconazole 100 mg tablet 100 mg PO DAILY #3 tab 02/26/20 03/24/20 03/24/20 Rx amoxicillin 500 mg PO BID 03/22/20 03/24/20 03/24/20 History metolazone See Rx Instructions .ROUTE .COMPLEX 03/22/20 03/24/20 Unknown History Allergies Allergy/AdvReac Type Severity Reaction Status Date / Time clindamycin Allergy Unknown unknown Verified 03/24/20 18:08 cyclobenzaprine Allergy Unknown unknown Verified 03/24/20 18:08 fenofibrate [From Tricor] Allergy Unknown Unknown Verified 03/24/20 18:08 gabapentin Allergy Unknown unknown Verified 03/24/20 18:08 gemfibrozil Allergy Unknown unknwon Verified 03/24/20 18:08 hydrocodone Allergy Unknown unknown Verified 03/24/20 18:08 lisinopril Allergy Unknown unknown Verified 03/24/20 18:08 metolazone Allergy Unknown unknown Verified 03/24/20 18:08 niacin Allergy Unknown unknown Verified 03/24/20 18:08 [From Niaspan Extended-Release] Opioids - Morphine Analogues Allergy Unknown unknown Verified 03/24/20 18:08 pantoprazole [From Protonix] Allergy Unknown unknown Verified 03/24/20 18:08 prednisone Allergy Unknown unknown Verified 03/24/20 18:08 Current Medications Current Medications Generic Name Dose Route Start Last Admin Trade Name Freq PRN Reason Stop Dose Admin Allopurinol 150 mg 03/25/20 09:00 03/25/20 08:34 Allopurinol 300 Mg Tablet PO 150 mg DAILY THERESA Administration Amoxicillin 500 mg 03/25/20 09:00 03/25/20 08:37 Amoxicillin 500 Mg Capsule PO 500 mg BID THERESA Administration Ascorbic Acid 500 mg 03/25/20 09:00 03/25/20 08:37 Ascorbic Acid 500 Mg Tablet PO 500 mg BID THERESA Administration Atorvastatin Calcium 40 mg 03/25/20 09:00 03/25/20 08:42 Atorvastatin 40 Mg Tablet PO Not Given DAILY THERESA Bumetanide 4 mg 03/25/20 09:00 03/25/20 08:45 Bumetanide 1 Mg Tablet PO 4 mg BID THERESA Administration Docusate Sodium 100 mg 03/25/20 09:00 03/25/20 08:34 Docusate Sodium 100 Mg Capsule PO 100 mg BID THERESA Administration Ferrous Gluconate 324 mg 03/25/20 08:00 03/25/20 08:37 Ferrous Gluconate 324 Mg Tablet PO 324 mg BIDWM THERESA Administration Fluconazole 100 mg 03/25/20 09:00 03/25/20 08:37 Fluconazole 100 Mg Tablet PO 100 mg DAILY THERESA Administration Folic Acid 2 mg 03/25/20 09:00 03/25/20 08:34 Folic Acid 1 Mg Tablet PO 2 mg DAILY THERESA Administration Heparin Sodium (Beef Lung) 5,000 unit 03/25/20 02:00 03/25/20 02:44 Heparin 5,000 Unit/Ml Inj 1 Ml SUBCUT 5,000 unit Q12H THERESA Administration Insulin Aspart 0 unit 03/25/20 12:00 03/25/20 11:49 Insulin Aspart 100 Unit/1 Ml SUBCUT 3 unit WM&BEDTIME [facility] Administration Protocol Isosorbide Mononitrate 90 mg 03/25/20 09:00 03/25/20 08:34 Isosorbide Mononitrate Er 60 Mg Tablet PO 90 mg DAILY THERESA Administration Levetiracetam 750 mg 03/25/20 09:00 03/25/20 08:37 Levetiracetam 500 Mg Tablet PO 750 mg BID THERESA Administration Levothyroxine Sodium 112 mcg 03/25/20 09:00 03/25/20 08:37 Levothyroxine 112 Mcg Tablet PO 112 mcg DAILY THERESA Administration Ondansetron HCl 4 mg 03/25/20 00:38 03/25/20 10:35 Ondansetron 4 Mg Tablet PO 4 mg Q6H PRN Administration Nausea Ondansetron HCl 4 mg 03/25/20 00:43 03/25/20 05:38 Ondansetron 2 Mg/Ml Sdv 2 Ml IVP 4 mg Q8H PRN Administration vomiting, or N/V if npo Polyethylene Glycol 17 gm 03/25/20 09:00 03/25/20 08:54 Polyethylene Glycol 3350 Pkt 17 Gm PO Not Given DAILY THERESA Trimethoprim/Sulfamethoxazole 1 tab 03/25/20 09:00 03/25/20 08:35 Sulfamethoxazole-Trimeth Ds 160-800 Mg Tablet PO 1 tab DAILY [facility] Administration Protocol Vitamin D 2,000 unit 03/25/20 09:00 03/25/20 08:35 Cholecalciferol (Vitamin D3) 1,000 Unit Tablet PO 2,000 unit DAILY THERESA Administration PFSH Acute PFSH: Medical History (Updated 03/25/20 @ 06:50 by Abhay Moore MD) Anemia Ascites Ascites ASHD (arteriosclerotic heart disease) Atrial fibrillation Cardiac defibrillator in place Cardiomyopathy CHF (congestive heart failure) Cholecystectomy planned Chronic antibiotic suppression Chronic systolic heart failure CKD (chronic kidney disease) Cystitis Diabetes Hyperlipidemia Hypertension Hypothyroidism Left ventricular assist device present Lower GI bleed requiring more than 4 units of blood in 24 hours, ICU, or surgery LVAD (left ventricular assist device) present LVAD (left ventricular assist device) present Mitral regurgitation Pulmonary hypertension Seizure disorder Thyroid nodule Surgical History H/O hernia repair H/O knee surgery H/O thyroidectomy Hx of appendectomy Family History Other CAD (coronary artery disease) Cancer Hypertension Social History Smoking and tobacco status: former smoker Alcohol intake: never Lives independently: No Household members: spouse Marital status: Vitals/I&O/Wt Last Vital Signs Temp 96.8 F L 03/25/20 11:10 Pulse 70 03/25/20 11:10 Resp 12 03/25/20 11:10 BP 104/86 03/25/20 11:10 Pulse Ox 100 03/25/20 11:10 03/24/20 03/25/20 03/25/20 22:59 06:59 14:59 Intake Total 200 / 200 240 / 240 Output Total 350 / 350 100 / 100 Balance -150 / -150 140 / 140 Weight last 48 hrs Weight 96.615 kg Physical Exam Narrative: EXAM NARRATIVE: Constitutional: Awake, comfortable HEENT: Wet mucosa, no jvp, non icteric Lungs: Bilaterally clear without discernible wheeze, rales in all lung zones CVS: S1 S2, no murmurs Abdo: Soft, BS ok Ext 4: 2-3 + edema, peripheral perfusion with no cyanosis Neurological: Grossly non-focal Data Micro: Micro: Microbiology 03/24/20 21:30 Blood Culture - Pr eliminary Blood SPECIMEN COLLEC LUÍS 03/24/20 20:38 Blood Culture - Pr eliminary Blood SPECIMEN COLLE LUÍS A&P Additional A&P Information 1. CKD stage 4-5 Creatinine 3.8 mg/dL, equating to GFR 15 mL/minute This is consistent with his baseline renal function, with chronic kidney disease likely secondary to chronic cardiorenal syndrome and underlying renovascular disease. He has specifically expressed a desire not to receive hemodialysis. We will continue to use diuretics and conivaptan (see below) Avoid usual nephrotoxic agents Strict ins and outs Bladder scan, and if positive will get renal ultrasound scan as false positives are common with ascites 2. Hypervolemic hyponatremia Secondary to CHF and a poor prognosticator. Intermittent and chronic problem for him. Continue Bumex, I discussed with pharmacy and we will give 20 mg IV conivaptan today. Hopefully we can get some orders in so that we can administer tomorrow or so. This is a high ADH state, characterized by the elevated specific gravity seen on the urinalysis performed today. No evidence of nephrotic syndrome. Continue free water restriction Would avoid additional sodium including IVF and sodium chloride tablets 3. Ischemic cardiomyopathy with LVAD and AICD Management per dynamite shooter, Dr. Al Phillips MD Nephrology [phone] Patient seen and examined via telemedicine, with the assistance of the bedside RN Consult Attestations Medical Necessity Statement: eval for hyponatremia Coding Level of Care Code Acute Docketing Specialist for Addis Owens
[2020-03-25 12:20] LABS: Free T4 Free Thyroxine 1.05 ng/dL (0.82-1.77); T3 Free 1.2 PG/ML (2.0-4.4)
--- NOTE | 2020-03-25 14:31 | US_ITS ---
WS: [id number] ULTRASOUND ABDOMEN LIMITED CLINICAL INFORMATION: Check for ascites, paracentesis if indicated (d/w Dr Pinto) COMPARISON: None. FINDINGS: Mild to moderate ascites. Insufficient access windows in the lower quadrants to safely perform parace ntesis. Perihepatic ascites in the right upper quadrant. Recommend repeat assessment in 1-2 days US/US abdomen limited [id number] IMPRESSION: Mild to moderate ascites. Insufficient access windows in the lower quadrants to safely perform paracentes is. Recommend repeat assessment in 1-2 days
[2020-03-25 16:22] LABS: Glucose Point of Care 193 mg/dL (70-110)
[2020-03-25] MEDS: lanolin oint 7 gm 1 APPLIC TOPICAL (17:57)
[2020-03-25 21:30] LABS: Glucose Point of Care 233 mg/dL (70-110)
[2020-03-25] MEDS: HYDROcodone-acetaminophen 5-325 mg Tablet 1 TAB PO (21:35)
[2020-03-26] VITALS (11 sets, daily range): BP systolic 83–103; BP diastolic 72–83; PULSE 70–75; RESP 13–16; TEMP 35.7–36.4; O2SAT 90–99
[2020-03-26] MEDS: heparin 5,000 unit/mL INJ 1 mL 5000 UNIT SUBCUT (02:51)
[2020-03-26 03:21] LABS: INR 1.05 (0.8-1.2)
[2020-03-26 03:22] LABS: Alanine Aminotransferase 8 U/L (0-41); Albumin Level 3.2 g/dL (3.5-5.2); Alkaline Phosphatase 70 IU/L (40-130); Anion Gap 16.4 (5-19); Aspartate Amino Transferase 10 U/L (0-40); Carbon Dioxide 23 mmol/L (22-29); Chloride 86 mmol/L (98-107); Globulin 2.1 g/dL (1.3-4.6); Glucose 119 mg/dL (65-115); Magnesium 4.5 mg/dL (1.7-2.3); Osmolality Calculated 278 mOsm/kg (285-295); Partial Thromboplastin Time 34.7 SECONDS (23.9-36.7); Phosphorus 6.3 mg/dL (2.5-4.5); Potassium 4.4 mmol/L (3.5-5.1); Sodium 121 mmol/L (136-145); Total Bilirubin 0.3 mg/dL (0.15-1.2); Total Protein 5.3 g/dL (6.6-8.7)
[2020-03-26 03:23] LABS: Basophils % 0.3 %; Eosinophils # 0.1 10^3/uL (0.0-0.8); Eosinophils % 1.5 %; Hematocrit 23.8 % (42.0-52.0); Hemoglobin 7.9 g/dL (11.7-16.6); Lymphocytes # 0.6 10^3/uL (0.8-4.8); Lymphocytes % 13.9 %; Mean Corpuscular HGB Conc 33.2 g/dL (30.0-36.0); Mean Corpuscular Hemoglobin 31.9 pg (28.0-34.0); Mean Platelet Volume 8.9 fL (7.4-10.4); Monocytes # 0.4 10^3/uL (0.2-0.9); Monocytes % 10.1 %; Neutrophils # 2.89 10^3/uL (1.8-7.7); Neutrophils % 72.7 %; Nucleated Red Blood Cells % 0.5 %; Platelet Count 103 10^3/cmm (130-400); Red Blood Count 2.48 10^6/uL (4.1-5.3); Red Cell Distribution Width 16.2 % (12.1-15.1)
[2020-03-26 03:30] LABS: Blood Urea Nitrogen 81 mg/dL (8-23)
[2020-03-26 06:43] LABS: Glucose Point of Care 137 mg/dL (70-110)
--- NOTE | 2020-03-26 07:07 | PC.NURSE ---
Patient has recieved two doses of Bumex yesterday on day shift. Patient is very oliguric. A total of around 270 ml of urine out. Patient still exhibiting anasarca from the toes to his shoulders. Scrotum elevated to relieve pressure. Will continue to monitor and assist as needed
[2020-03-26] MEDS: ferrous gluconate 324 mg Tablet PO ×2 (07:45→17:33)
[2020-03-26] MEDS: amoxicillin 500 mg Capsule PO ×2 (07:59→17:33)
[2020-03-26] MEDS: fluconazole 100 mg Tablet PO (07:59)
[2020-03-26] MEDS: sulfamethoxazole-trimeth DS 160-800 mg Tablet 1 TAB PO (08:00)
[2020-03-26] MEDS: levothyroxine 112 mcg Tablet PO (08:00)
[2020-03-26] MEDS: levETIRAcetam 500 mg Tablet 750 MG PO ×2 (08:00→17:32)
[2020-03-26] MEDS: folic acid 1 mg Tablet 2 MG PO (08:01)
[2020-03-26] MEDS: docusate sodium 100 mg Capsule PO ×2 (08:01→17:31)
[2020-03-26] MEDS: atorvastatin 40 mg Tablet PO (08:01)
[2020-03-26] MEDS: ascorbic acid 500 mg Tablet PO ×2 (08:01→17:33)
[2020-03-26] MEDS: allopurinol 300 mg Tablet 150 MG PO (08:02)
[2020-03-26] MEDS: isosorbide mononitrate ER 60 mg Tablet 90 MG PO (09:29)
[2020-03-26] MEDS: bumetanide 1 mg Tablet 4 MG PO ×2 (09:30→17:32)
[2020-03-26] MEDS: cholecalciferol (vitamin D3) 1,000 unit Tablet 2000 UNIT PO (09:50)
[2020-03-26 10:38] LABS: Procalcitonin 0.27 ng/mL (0-0.5)
[2020-03-26 11:24] LABS: Glucose Point of Care 255 mg/dL (70-110)
--- NOTE | 2020-03-26 13:08 | US_ITS ---
WS: [id number] ULTRASOUND-GUIDED PARACENTESIS CLINICAL INFORMATION: worsening ascites, follow-up for paracentesis COMPARISON: None. Procedure Informed consent: The risks, benefits, and alternatives of the procedure were discussed with the howie ent. Verbal and written consent was obtained. Timeout: A timeout was performed to confirm the correct patient, procedure, and site. Preparation: A suitable skin site was identified. The patient was prepped and draped in usual sterile fashion. Lidocaine 1% was used for local anesthesia. Catheter: 4 Iranian One-step Yueh catheter. Side: Left Lower quadrant. Fluid Volume: 3500 ml Color: Dark yellow 50 cc sent for requested diagnostic tests. Complications: None. US/US paracentesis abd w [id number] IMPRESSION: Uncomplicated ultrasound-guided paracentesis. Removal of 3500 cc
--- NOTE | 2020-03-26 13:54 | PC.NURSE ---
Ultrasound guided Paracentesis Pt signed consent for procedure. Nurse in room. Pt verified his name and . Dr. Pinto in room and 2 ultrasound techs Aden in room. Site marked and location on left lower abdominal quadrant area. Time out done.
--- NOTE | 2020-03-26 14:16 | P.PN_ITS ---
Subjective Subjective: Interval history: He states he is about the same. Abdomen is more distended. Vitals/I&O/Wt Last Vital Signs Temp 96.9 F L 03/26/20 12:00 Pulse 75 03/26/20 12:00 Resp 15 03/26/20 12:00 BP 103/83 03/26/20 12:00 Pulse Ox 93 03/26/20 12:00 03/25/20 03/26/20 03/26/20 22:59 06:59 14:59 Intake Total 240 / 720 100 / 820 480 / 480 Output Total 870 / 970 390 / 1360 510 / 510 Balance -630 / -250 -290 / -540 -30 / -30 Weight last 48 hrs Weight 96.615 kg Physical Exam Const: COMMON NORMALS: no acute distress, patient oriented x3 and alert GENERAL APPEARANCE: cooperative and frail appearing ORIENTATION/CONS CIOUSNESS: Yes awake HENMT: COMMON NORMALS: oropharynx normal Neck/C-Spine: COMMON NORMALS: no JVD Resp: COMMON NORMALS: normal respiratory effort and clear to auscultation bilaterally AUSCULTATION: clear to auscultation bilaterally Cardio: COMMON NORMALS: no JVD, regular rhythm, S1 normal heart sound present, S2 normal heart sound present and No murmurs present (Cardio) RHYTHM: regular rhythm HEART SOUNDS: S1 normal heart sound present and S2 normal heart sound present GI: COMMON NORMALS: Soft to palpation and non-tender INSPECTION: Yes abdominal distension PALPATION: Yes Soft to palpation Extremity: COMMON NORMALS: no joint enlargement GENERAL: Yes edema (2+ LEs and hands) Neuro: COMMON NORMALS: patient oriented x3 and moves all extremities SENSORIUM/ORIENTATION: Yes alert Skin: COMMON NORMALS: no rashes or lesions noted GENERAL SKIN EXAM: no rashes or lesions noted Data : 03/26/20 02:45 03/26/20 02:45 Micro: Microbiology 03/24/20 21:30 Blood Culture - Preliminary Blood NEGATIVE TO DATE 03/24/20 20:38 Blood Culture - Preliminary Blood NEGATIVE TO DATE A&P Assessment and plan (1) Generalized weakness: Multifactorial weakness, without much improvement. After careful consideration he has decided he would like to proceed with hospice care. Today due to worsening ascites, abdominal distention, with tense ascites he is undergoing paracentesis. Care coordination is working with him with regards to hospice choices. Status: Acute (2) Ascites: Worsening ascites today. With worse abdominal distention. Abdomen is taut. Paracentesis today. Due to bleeding last time due to paracentesis, incision avoid at this time. Heparin was held. Monitor for bleeding. We will give dose of albumin. Status: Inactive Qualifiers: Ascites type: other type Qualified Code(s): R18.8 - Other ascites (3) Hyponatremia: Patient stable without improvement. Discussed with nephrology this morning. At this time blood pressures too soft for spironolactone. If improv ed, consider initiation. Otherwise urea tablets may be considered on discharge. Acute on chronic severe symptomatic hypervolemic hyponatremia, in the setting of high ADH resulting from 6 congestive cirrhosis secondary to end-stage heart failure. Started on conivaptan. Continue Bumex Status: Acute (4) FELICIA (acute kidney injury): Without improvement in renal function. He is not interested in hemodialysis. FELICIA on Progressively worsening CKD stage III/IV LIKELY 2/2 to CRS , HRS secondary to cirrhosis secondary to hepatic congestopathy secondary to end-stage heart failure. Continue with Bumex oral. Strict intake output chart. In negative balance. Status: Acute (5) LVAD (left ventricular assist device) present: Status: Acute (6) Chronic systolic heart failure: He is in process of setting up hospice care with care coordination. Continue Bumex Status: Acute (7) Seizure disorder: Continue Keppra Status: Acute (8) Hypothyroidism: Continue levothyroxine Status: Acute (9) Hypertension: Currently normotensive Status: Acute (10) Diabetes: Sliding scale insulin Monitor fingerstick glucose Status: Acute (11) Atrial fibrillation: History of atrial fibrillation, currently rate controlled Telemetry Status: Acute Qualifiers: Atrial fibrillation type: longstanding persistent Qualified Code(s): I48.11 - Longstanding persistent atrial fibrillation (12) ASHD (arteriosclerotic heart disease): Status: Acute (13) Pulmonary hypertension: Status: Acute (14) Chronic antibiotic suppression: Status: Acute Additional A&P Information Plan for paracentesis with tense ascites, previously with bleeding post procedure requiring additional monitoring, diuresis, management of hyponatremia, addressing of goals of care and disposition planning. CODE STATUS: AND DVT prophylaxis: heparin Disposition: Home with hospice Attestations Medical Necessity Statement*: Continue admission for paracentesis due to tense ascites, with prior bleeding following the procedure, requiring additional monitoring, diuresis, management of hyponatremia, addressing of goals of care and disposition planning. Coding Level of Care Code Acute Project Administrative Assistant for Chg Fwd Exam Comprehensive Diagnoses Generalized weakness R53.1 Ascites R18.8 Ascites type: other type Hyponatremia E87.1 FELICIA (acute kidney injury) N17.9 LVAD (left ventricular assist device) present Z95.811 Chronic systolic heart failure I50.22 Seizure disorder G40.909 Hypothyroidism E03.9 Hypertension I10 Diabetes E11.9 Atrial fibrillation I48.11 Atrial fibrillation type: longstanding persistent ASHD (arteriosclerotic heart disease) I25.10 Pulmonary hypertension I27.20 Chronic antibiotic suppression Z79.2
--- NOTE | 2020-03-26 14:36 | PC.NURSE ---
Medication on Hold Heparin SQ on hold. Med on hold due to Paracentesis procedure. Dr. Magana is aware on holding it pre and post procedure.
--- NOTE | 2020-03-26 14:59 | P.PN_ITS ---
Subjective Subjective: Interval history: distended abdomen, asking for a paracentesis breathing is comfortable on BIPAP and he is conversant when this is removed Minimal extremity edema and no uremic Sx Remains stable since yesterday Vitals/I&O/Wt Last Vital Signs Temp 96.9 F L 03/26/20 12:00 Pulse 75 03/26/20 12:00 Resp 15 03/26/20 12:00 BP 103/83 03/26/20 12:00 Pulse Ox 93 03/26/20 12:00 03/25/20 03/26/20 03/26/20 22:59 06:59 14:59 Intake Total 240 / 720 100 / 820 580 / 580 Output Total 870 / 970 390 / 1360 510 / 510 Balance -630 / -250 -290 / -540 70 / 70 Weight last 48 hrs Weight 96.615 kg Physical Exam 2 Narrative: EXAM NARRATIVE: Constitutional: Awake, comfortable HEENT: Wet mucosa, no jvp, non icteric Lungs: Bilaterally clear without discernible wheeze, rales in all lung zones CVS: S1 S2, no murmurs Abdo: Soft, BS ok Ext 4: 2-3 + edema, peripheral perfusion with no cyanosis Neurological: Grossly non-focal Data : 03/26/20 02:45 03/26/20 02:45 Micro: Microbiology 03/24/20 21:30 Blood Culture - Preliminary Blood NEGATIVE TO DATE 03/24/20 20:38 Blood Culture - Preliminary Blood NEGATIVE TO DATE A&P Additional A&P Information 1. CKD stage 4-5 Creatinine now trending up This is consistent with his baseline renal function, with chronic kidney disease likely secondary to chronic cardiorenal syndrome and underlying renovascular disease. He has specifically expressed a desire not to receive hemodialysis. I have repeated conivaptan and other diuretic therapy (see below) Avoid usual nephrotoxic agents Strict ins and outs Bladder scan, and if positive will get renal ultrasound scan as false positives are common with ascites 2. Hypervolemic hyponatremia Sodium level unchanged Secondary to CHF and a poor prognosticator. Intermittent and chronic problem for him. Continue Bumex, I discussed with pharmacy and we will give 20 mg IV conivaptan again today. This is a high ADH state, characterized by the elevated specific gravity seen on the urinalysis performed today. No evidence of nephrotic syndrome. Continue free water restriction Would avoid additional sodium including IVF and sodium chloride tablets 3. Ischemic cardiomyopathy with LVAD and AICD Management per community educator, Dr. Melendez - poor prognosis, I appreciate that the hospice team will visit with him today Trevor Phillips MD Nephrology [phone] Patient seen and examined via telemedicine, with the assistance of the bedside RN Attestations Medical Necessity Statement*: evaluation for hyponatremia and FELICIA Coding Level of Care Code Acute Elastic Cutter for Karolg Graciela
[2020-03-26 15:38] LABS: Mononuclear #, Pertinoneal Fl 0.158 10^3/uL; Polynuclear # Cells, Perit 0.047 10^3/uL
[2020-03-26 15:54] LABS: Appearance, Peritoneal Fluid Hazy (Clear); Color, Peritoneal Fluid Pale Yellow (Pale Yellow)
[2020-03-26 15:55] LABS: Pathology Referral Yes; RBC Pertioneal Fluid 5 10^3/uL; WBC Peritoneal Fluid 205 /uL
[2020-03-26 17:26] LABS: Glucose Point of Care 265 mg/dL (70-110)
[2020-03-26 20:33] LABS: Glucose Point of Care 230 mg/dL (70-110)
[2020-03-27] VITALS (7 sets, daily range): BP systolic 81–113; BP diastolic 65–86; PULSE 66–80; RESP 16–24; TEMP 36.3–36.6; O2SAT 95–99
[2020-03-27] MEDS: heparin 5,000 unit/mL INJ 1 mL 5000 UNIT SUBCUT (02:15)
[2020-03-27 06:24] LABS: Basophils % 0.3 %; Eosinophils % 1.1 %; Hematocrit 24.2 % (42.0-52.0); Hemoglobin 8.1 g/dL (11.7-16.6); Lymphocytes # 0.5 10^3/uL (0.8-4.8); Lymphocytes % 15.1 %; Mean Corpuscular HGB Conc 33.5 g/dL (30.0-36.0); Mean Corpuscular Volume 95.7 fL (80-94); Mean Platelet Volume 8.4 fL (7.4-10.4); Monocytes # 0.4 10^3/uL (0.2-0.9); Monocytes % 10.5 %; Nucleated Red Blood Cells % 0.6 %; Platelet Count 85 10^3/cmm (130-400); Red Blood Count 2.53 10^6/uL (4.1-5.3); Red Cell Distribution Width 16.1 % (12.1-15.1); White Blood Count 3.5 10^3/uL (4.0-10.0)
[2020-03-27 06:53] LABS: Calcium 8.9 mg/dL (8.5-10.5); Potassium 3.8 mmol/L (3.5-5.1); Total Bilirubin 0.4 mg/dL (0.15-1.2)
[2020-03-27 07:21] LABS: Glucose Point of Care 147 mg/dL (70-110)
[2020-03-27] MEDS: ferrous gluconate 324 mg Tablet PO (07:33)
[2020-03-27 07:37] LABS: Alanine Aminotransferase 6 U/L (0-41); Albumin Level 3.4 g/dL (3.5-5.2); Alkaline Phosphatase 65 IU/L (40-130); Aspartate Amino Transferase 9 U/L (0-40); Carbon Dioxide 23 mmol/L (22-29); Globulin 1.9 g/dL (1.3-4.6); Glucose 132 mg/dL (65-115); Phosphorus 6.1 mg/dL (2.5-4.5); Total Protein 5.3 g/dL (6.6-8.7)
[2020-03-27 08:24] LABS: Anion Gap 16.8 (5-19); Blood Urea Nitrogen 72 mg/dL (8-23); Chloride 88 mmol/L (98-107); Magnesium 4.1 mg/dL (1.7-2.3); Osmolality Calculated 281 mOsm/kg (285-295); Sodium 124 mmol/L (136-145)
[2020-03-27] MEDS: bumetanide 1 mg Tablet 4 MG PO (09:03)
[2020-03-27] MEDS: cholecalciferol (vitamin D3) 1,000 unit Tablet 2000 UNIT PO (09:04)
[2020-03-27] MEDS: atorvastatin 40 mg Tablet PO (09:04)
[2020-03-27] MEDS: amoxicillin 500 mg Capsule PO (09:04)
[2020-03-27] MEDS: allopurinol 300 mg Tablet 150 MG PO (09:05)
[2020-03-27] MEDS: levETIRAcetam 500 mg Tablet 750 MG PO (09:05)
[2020-03-27] MEDS: sulfamethoxazole-trimeth DS 160-800 mg Tablet 1 TAB PO (09:06)
[2020-03-27] MEDS: folic acid 1 mg Tablet 2 MG PO (09:06)
[2020-03-27] MEDS: ascorbic acid 500 mg Tablet PO (09:06)
[2020-03-27] MEDS: fluconazole 100 mg Tablet PO (09:06)
[2020-03-27] MEDS: polyethylene glycol 3350 Pkt 17 gm PO (09:07)
[2020-03-27] MEDS: levothyroxine 112 mcg Tablet PO (09:07)
[2020-03-27] MEDS: isosorbide mononitrate ER 60 mg Tablet 90 MG PO (09:07)
[2020-03-27] MEDS: docusate sodium 100 mg Capsule PO (09:07)
--- NOTE | 2020-03-27 09:25 | PC.SOCIAL ---
IMM Update Pg.2 of IMM updated and reviewed with patient who verbalized understanding.
[2020-03-27 10:45] LABS: Glucose Point of Care 280 mg/dL (70-110)
--- NOTE | 2020-03-27 10:52 | P.PN_ITS ---
Subjective Subjective: Interval history: Feels a little Better today. He had a paracentesis with 3.5 L removed yesterday and has made over 2 L of urine over the last 24 hours. His edema is slightly better, and he is breathing comfortably. No new uremic symptoms. He still has significant anasarca. Vitals/I&O/Wt Last Vital Signs Temp 97.8 F 03/27/20 07:55 Pulse 66 03/27/20 07:55 Resp 16 03/27/20 07:55 BP 101/81 03/27/20 07:55 Pulse Ox 98 03/27/20 07:55 03/26/20 03/27/20 03/27/20 22:59 06:59 14:59 Intake Total 340 / 924.9 580 / 580 Output Total 4200 / 4710 400 / 5110 675 / 675 Balance -3860 / -3785.1 -400 / -4185.1 -95 / -95 Physical Exam Narrative: EXAM NARRATIVE: Constitutional: Awake, comfortable HEENT: Wet mucosa, no jvp, non icteric Lungs: Bilaterally clear without discernible wheeze, rales in all lung zones CVS: S1 S2, no murmurs Abdo: Soft, BS ok Ext 4: 2-3 + edema, peripheral perfusion with no cyanosis Neurological: Grossly non-focal Data : 03/27/20 05:56 03/27/20 05:56 Micro: Microbiology 03/26/20 14:00 Gram Stain - Final Peritoneal Fluid A&P Additional A&P Information 1. CKD stage 4-5 Creatinine stabilized since yesterday This is consistent with his baseline renal function, with chronic kidney disease likely secondary to chronic cardiorenal syndrome and underlying renovascular disease. He has specifically expressed a desire not to receive hemodialysis. I have repeated conivaptan and other diuretic therapy (see below) Avoid usual nephrotoxic agents Strict ins and outs 2. Hypervolemic hyponatremia Sodium better since yesterday Secondary to CHF and a poor prognosticator. Intermittent and chronic problem for him. Continue Bumex, I discussed with pharmacy and we will give 20 mg IV conivaptan again today. This is a high ADH state, characterized by the elevated specific gravity seen on the urinalysis performed today. No evidence of nephrotic syndrome. Continue free water restriction Following discharge he may feel better with Tolvaptan on board but this will be challenging to get approval for given cost 3. Ischemic cardiomyopathy with LVAD and AICD Management per scenery builder, Dr. Melendez - poor prognosis, pending hospice Trevor Phillips MD Nephrology [phone] Patient seen and examined via telemedicine, with the assistance of the bedside RN Attestations Medical Necessity Statement*: eval for hyponatremia Coding Level of Care Code Acute Assistant Professor Of Criminal Justice for Chg Fwd
--- NOTE | 2020-03-27 14:02 | P.DS_ITS ---
Discharge Providers Date of Admission: 03/24/20 22:55 Date of Discharge: March 27, 2020 Attending Provider at Admission: Abhay Moore MD Attending Provider at Discharge: Riley Magana Primary Care Provider: Jesus Rodriguez MD Diagnoses at Discharge Discharge Diagnosis (1) Generalized weakness: Status: Acute (2) Ascites: Status: Inactive Qualifiers: Ascites type: other type Qualified Code(s): R18.8 - Other ascites (3) Hyponatremia: Status: Acute (4) FELICIA (acute kidney injury): Status: Acute (5) LVAD (left ventricular assist device) present: Status: Acute (6) Chronic systolic heart failure: Status: Acute (7) Seizure disorder: Status: Acute (8) Hypothyroidism: Status: Acute (9) Hypertension: Status: Acute (10) Diabetes: Status: Acute (11) Atrial fibrillation: Status: Acute Qualifiers: Atrial fibrillation type: longstanding persistent Qualified Code(s): I48.11 - Longstanding persistent atrial fibrillation (12) ASHD (arteriosclerotic heart disease): Status: Acute (13) Pulmonary hypertension: Status: Acute (14) Chronic antibiotic suppression: Status: Acute Reason for Visit Reason for Visit: WEAKNESS / SHORT OF BREATH Hospital Course Hospital Course Pleasant 74-year-old gentleman with chronic systolic congestive heart failure, on LVAD support since 2013, CAD, hypothyroidism, DM 2, gout, seizure disorder, chronic kidney disease stage IV, cardiorenal syndrome, liver cirrhosis, recurrent GI bleeding, other chronic medical problems was admitted due to ge neralized weakness, found to have worsening renal function, with acute kidney injury on chronic kidney disease, also noted worsening to severe hyponatremia on presentation, sodium 119. With noted peripheral edema, dry hospitalization orders worsening ascites. Declined transfer to [facility] from ER for additional assessment there. Was seen here by nephrology, continued on bumetanide, but with discontinuation of metolazone due to hyponatremia. Unfortunately with hyponatremia likely portending poor prognosis. Was initiated treatment with conivaptan. Due to worsening ascites was treated with paracentesis. No suggestion of SBP noted on ascitic fluid analysis. His hemoglobin remained stable. On admission noted elevated TSH, 6.94. Free T4 and T3 were checked, 1.05, 1.2 respectively. This may be secondary to some natural variation, however, would follow-up thyroid function test, and if TSH persistently elevated, or free T4 becomes lower, would probably treat as hypothyroidism and consider increasing levothyroxine dose. Unfortunately in the setting of his congestive heart failure, edema, ascites, poor absorption of medication needs to be considered as well. His sodium did improve mildly up to 124. Renal function improved slightly and he now appears at his baseline. Per discussion with nephrology, tolvaptan, if he is approved, could be considered. Long-term, he has expressed that he would not want additional aggressive interventions. He has also stated he would not want hemodialysis with progression of worsening of renal failure. He and his family first wishes to set up with hospice care. Question of possible drain was raised by hospice care, however, per discussion with our surgeon this is not something that could be done at this facility. If there is such consideration, perhaps reaching out to [facility] would be the thing to do given also presence of LVAD, and him previously receiving most of his interventional care there. This could be considered for palliative purposes only. He is feeling slightly better. His overall prognosis is poor. Physical Exam Const: COMMON NORMALS: no acute distress, patient oriented x3 and alert GENERAL APPEARANCE: cooperative and frail appearing ORIENTATION/CONSCIO USNESS: Yes awake OTHER: Sitting up in chair. Appears little bit stronger. Eating his lunch. Reports he is feeling slightly better. Denies any complaints. HENMT: COMMON NORMALS: oropharynx normal Neck/C-Spine: COMMON NORMALS: no JVD Resp: COMMON NORMALS: normal respiratory effort and clear to auscultation bilaterally AUSCULTATION: clear to auscultation bilaterally Cardio: COMMON NORMALS: no JVD, regular rhythm, S1 normal heart sound present, S2 normal heart sound present and No murmurs present (Cardio) RHYTHM: regular rhythm HEART SOUNDS: S1 normal heart sound present and S2 normal heart sound present GI: COMMON NORMALS: Soft to palpation and non-tender INSPECTION: Yes abdominal distension PALPATION: Yes Soft to palpation Extremity: COMMON NORMALS: no joint enlargement GENERAL: Yes edema (2+ LEs and hands) Neuro: COMMON NORMALS: patient oriented x3 and moves all extremities SENSORIUM/ORIENTATION: Yes alert Skin: COMMON NORMALS: no rashes or lesions noted GENERAL SKIN EXAM: no rashes or lesions noted Discharge Data Data Completed and Pending: Completed Studies During Hospitalization Category Date Time Status XR chest 1V rupesh ble [id number] Urgent Exams 03/24/20 17:50 Completed [place] abdomen limite d [id number] Routine Ultrasound 03/25/20 14:31 Com[place] bd w [id number] Routine Ultrasound 03/26/20 13:08 Completed Pending at discharge Category Date Time Status Blood Culture Sta t Lab 03/24/20 21:30 Results Body Fluid Cultur e & GS Routine Lab 03/26/20 14:00 Results Complete Blood Co unt w/Auto AM LABS Lab 03/28/20 04:00 Ordered Comprehensive Met abolic Panel AM LA BS Lab 03/28/20 04:00 Ordered Magnesium AM LABS Lab 03/28/20 04:00 Ordered Phosphorus AM LAB S Lab 03/28/20 04:00 Ordered Labs from last 24 hours 03/27/20 03/27/20 03/27/20 10:35 06:47 05:56 WBC 3.5 L RBC 2.53 L Hgb 8.1 L Hct 24.2 L MCV 95.7 H MCH 32.0 MCHC 33.5 RDW 16.1 H Plt Count 85 L MPV 8.4 Neut % (Auto) 71.0 Lymph % (Auto) 15.1 [place] % (Auto) 10.5 Eos % (Auto) 1.1 Baso % (Auto) 0.3 Neut # (Auto) 2.50 Lymph # (Auto) 0.5 L [place] # (Auto) 0.4 Eos # (Auto) 0.0 Baso # (Auto) 0.0 Nucleated RBC % (a uto) 0.6 Nucleated RBCs # 0.0 Sodium Potassium Chloride Carbon Dioxide Anion Gap BUN Creatinine GFR Calculation Glucose POC Glucose 280 147 Calculated Osmolal ity Calcium Phosphorus Magnesium Total Bilirubin AST ALT Alkaline Phosphata se Total Protein Albumin Globulin Peritoneal Color Peritoneal Appeara nce Peritoneal WBC Peritoneal RBC Periton Mononu # A uto Mononuclear WBCs % Polynuclear WBCs % Perit Polynuc WBCs # Peritoneal Diff Co mmnt 03/27/20 03/26/20 03/26/20 05:56 20:28 17:20 WBC RBC Hgb Hct MCV MCH MCHC RDW Plt Count MPV Neut % (Auto) Lymph % (Auto) [place] % (Auto) Eos % (Auto) Baso % (Auto) Neut # (Auto) Lymph # (Auto) [place] # (Auto) Eos # (Auto) Baso # (Auto) Nucleated RBC % (a uto) Nucleated RBCs # Sodium 124 L Potassium 3.8 Chloride 88 L Carbon Dioxide 23 Anion Gap 16.8 BUN 72 H Creatinine 4.0 H GFR Calculation Not Reportable Glucose 132 H POC Glucose 230 265 Calculated Osmolal ity 281 L Calcium 8.9 Phosphorus 6.1 H Magnesium 4.1 H Total Bilirubin 0.4 AST 9 ALT 6 Alkaline Phosphata se 65 Total Protein 5.3 L Albumin 3.4 L Globulin 1.9 Peritoneal Color Peritoneal Appeara nce Peritoneal WBC Peritoneal RBC Periton Mononu # A uto Mononuclear WBCs % Polynuclear WBCs % Perit Polynuc WBCs # Peritoneal Diff Co mmnt 03/26/20 14:00 WBC RBC Hgb Hct MCV MCH MCHC RDW Plt Count MPV Neut % (Auto) Lymph % (Auto) [place] % (Auto) Eos % (Auto) Baso % (Auto) Neut # (Auto) Lymph # (Auto) [place] # (Auto) Eos # (Auto) Baso # (Auto) Nucleated RBC % (a uto) Nucleated RBCs # Sodium Potassium Chloride Carbon Dioxide Anion Gap BUN Creatinine GFR Calculation Glucose POC Glucose Calculated Osmolal ity Calcium Phosphorus Magnesium Total Bilirubin AST ALT Alkaline Phosphata se Total Protein Albumin Globulin Peritoneal Color Pale yellow Peritoneal Appeara nce Hazy Peritoneal WBC 205 Peritoneal RBC 5 Periton Mononu # A uto 0.158 Mononuclear WBCs % 77.100 Polynuclear WBCs % 22.900 Perit Polynuc WBCs # 0.047 Peritoneal Diff Co mmnt Yes Vitals: Last Vital Signs Temp 97.8 F 03/27/20 11:10 Pulse 71 03/27/20 11:10 Resp 17 03/27/20 11:10 BP 113/65 03/27/20 11:10 Pulse Ox 99 03/27/20 11:10 Discharge Plan Discharge Patient Disposition: Hospice - Home Condition: Stable Prescriptions: Continued levothyroxine 112 mcg capsule 112 mcg PO DAILY RF: 0 nitroglycerin [Nitrostat] 0.4 mg tablet, sublingual 0.4 mg SUBLINGUAL Q5M PRN (Reason: Chest Pain) RF: 0 polyethylene glycol 3350 [Miralax] 17 gram/dose powder 17 gm PO DAILY RF: 0 bumetanide 2 mg tablet 8 mg PO BID RF: 0 folic acid 1 mg tablet 2 mg PO DAILY RF: 0 Lantus U-100 Insulin 100 unit/mL solution See Rx Instructions .ROUTE .COMPLEX RF: 0 allopurinol 300 mg tablet 150 mg PO DAILY RF: 0 potassium chloride 20 mEq tablet extended release 40 meq PO BID PRN (Reason: LOW POTASSIUM) RF: 0 insulin aspart U-100 [Novolog U-100 Insulin aspart] 100 unit/mL solution See Rx Instructions .ROUTE .COMPLEX RF: 0 ferrous gluconate 324 mg (38 mg iron) tablet 324 mg PO BID RF: 0 levetiracetam [Keppra] 750 mg tablet 750 mg PO BID RF: 0 sulfamethoxazole-trimethoprim [Bactrim DS] 800-160 mg tablet 1 tab PO DAILY RF: 0 rosuvastatin [Crestor] 20 mg tablet 10 mg PO DAILY RF: 0 fluconazole 100 mg tablet 100 mg PO DAILY Qty: 3 RF: 0 ondansetron HCl [Zofran] 4 mg Tablet 4 mg PO Q6H PRN (Reason: Nausea) RF: 0 tramadol 50 mg tablet 50 mg PO BEDTIME PRN (Reason: Pain) RF: 0 ascorbic acid (vitamin C) [Vitamin C] 500 mg Tablet 500 mg PO BID RF: 0 cholecalciferol (vitamin D3) [Vitamin D3] 50 mcg (2,000 unit) Capsule 50 mcg PO DAILY RF: 0 amoxicillin 500 mg Tablet 500 mg PO BID RF: 0 Changed isosorbide mononitrate 60 mg tablet extended release 24 hr 60 mg PO DAILY Qty: 0 RF: 0 Discontinued metolazone 2.5 mg tablet See Rx Instructions .ROUTE .COMPLEX RF: 0 Discharge Orders: Discharge Order (Routine); Ordered 03/27/20 Ordered By: Riley Magana Ref[place]: [facility]) [Outside] Jesus Rodriguez MD [Primary Care Provider] - 4-7 days (Mic Alcantar will be calling to schedule a hospital follwup with Dr. Rodriguez to be seen in 4 to 7 days. If you don't hear from them by mid sunday, please give them a call. Thank you) Discharge Diet: Advance as tolerated and Regular Patient Instructions: Chronic Kidney Disease (GEN), Hyponatremia (GEN), Hospice Care (GEN), Abdominal Paracentesis (DC), Ascites (GEN) Activity Restrictions/Additional Instructions: If drain for peritoneal fluid for palliative purposes is considered, this would not be available at [facility]. Consideration may be given to reach out to [facility]. Follow-up with your daub color mixer as needed. Consider discussing submission for approval for tolvaptan for symptomatic treatment of hyponatremia. Due to low sodium at this time your metolazone is discontinued. Continue bumetanide. If your blood pressure stays stable (please monitor 3 times a day, write down values) please discuss with your primary care doctor consideration of addition of spironolactone. Due to soft blood pressure please decrease your Imdur dose for to 60 mg daily. If your blood pressure is still soft at home, less than 100 systolic, less than 60 diastolic, please decrease Imdur dose further to 30 mg (half a tablet). Maintain fluid restriction of 750 mL/day. Follow-up with your manager new product as needed. Please have your primary care doctor recheck your thyroid function studies. The pattern currently may suggest some hypothyroidism, although free T4 is normal. This may be some normal variance as well, however, if on repeat studies there is still suggestion of hypothyroidism, your thyroid medication dose may benefit fr om increase. Please take your thyroid medicine in the morning before any food intake. Discharge Attestations Time Spent in Discharge Care*: greater than 30 min Status at Discharge: Cognitive status at discharge: cognitively intact , Behavioral status at discharge: cooperative , Quality Metrics Clinical Quality Measures During this hospital stay, did patient experience: None Coding Level of Care Code Acute Zinc Etcher for Chg Fwd Diagnoses Generalized weakness R53.1 Ascites R18.8 Ascites type: other type Hyponatremia E87.1 FELICIA (acute kidney injury) N17.9 LVAD (left ventricular assist device) present Z95.811 Chronic systolic heart failure I50.22 Seizure disorder G40.909 Hypothyroidism E03.9 Hypertension I10 Diabetes E11.9 Atrial fibrillation I48.11 Atrial fibrillation type: longstanding persistent ASHD (arteriosclerotic heart disease) I25.10 Pulmonary hypertension I27.20 Chronic antibiotic suppression Z79.2
--- NOTE | 2020-03-27 14:18 | PC.NURSE ---
Discharge instructions given per the physician's orders. Patient verbalized understanding and did not have any further questions. IV has been removed. Patient to wait to get dressed until arrives. No needs identified at this time. Nurse to continue to monitor.
== END 2020-03-27 15:30 | disposition hospice, home (50) | DRG 641 ==
LOC: ER 18:44 → CSU 22:57
PROVIDERS: Emergency Medicine; Admitting Provider Internal Medicine; Emergency Provider Emergency Medicine; PCP Family Medicine; Visit Provider Internal Medicine
DX: E87.1 Hypo-osmolality and hyponatremia (principal); I13.2 Hypertensive heart and chronic kidney disease with heart failure and with stage 5 chronic kidney disease, or end stage renal disease; N18.5 Chronic kidney disease, stage 5; I50.22 Chronic systolic (congestive) heart failure; I48.11 Longstanding persistent atrial fibrillation; N17.9 Acute kidney failure, unspecified; R18.8 Other ascites; I25.10 Atherosclerotic heart disease of native coronary artery without angina pectoris; I25.5 Ischemic cardiomyopathy; E11.22 Type 2 diabetes mellitus with diabetic chronic kidney disease; I50.84 End stage heart failure; G40.909 Epilepsy, unspecified, not intractable, without status epilepticus; M10.9 Gout, unspecified; Z95.810 Presence of automatic (implantable) cardiac defibrillator; Z96.89 Presence of other specified functional implants; E78.5 Hyperlipidemia, unspecified; E89.0 Postprocedural hypothyroidism; I34.0 Nonrheumatic mitral (valve) insufficiency; I27.20 Pulmonary hypertension, unspecified; Z87.891 Personal history of nicotine dependence; K74.60 Unspecified cirrhosis of liver; Z79.891 Long term (current) use of opiate analgesic; Z79.4 Long term (current) use of insulin; Z79.2 Long term (current) use of antibiotics
CPT/HCPCS: 12345; 36415; 36416; 49083; 51798; 71045; 76705; 80048; 80053; 81003; 82962; 83615; 83735; 83880; 84100; 84145; 84439; 84443; 84481; 84484; 85025; 85610; 85730; 87040; 87070; 87075; 87205; 87426; 89050; 93005; 96361; 96372; 96374; 96375; 99282; 99283; C9488; J1644; J1815; J1940; J2405; J3490; J7030; J7131; P9047; Q0162; Q3014

== ENCOUNTER 2020-04-02 07:23 | Outpatient (CLI) | payer OTHER, SELFPAY ==
--- NOTE | 2020-04-02 | US_ITS ---
WS: [id number] ULTRASOUND-GUIDED THERAPEUTIC PARACENTESIS Procedure, risks, and complications have been explained to the patient. Consent is obtained. Utilizing aseptic technique and 1% buffered lidocaine, a small dermatome was made through which a 5 F rench Yueh catheter was inserted. Approximately 4000 ml of clear yellow peritoneal fluid was obtained without difficulty. No complications encountered. US/US paracentesis abd w [id number] IMPRESSION: Uncomplicated paracentesis yielding 4000 ml of peritoneal fluid.
[2020-04-02 09:09] LABS: Basophils % 0.2 %; Eosinophils % 0.9 %; Hematocrit 23.7 % (42.0-52.0); Hemoglobin 7.9 g/dL (11.7-16.6); Lymphocytes # 0.3 10^3/uL (0.8-4.8); Lymphocytes % 6.6 %; Mean Corpuscular HGB Conc 33.3 g/dL (30.0-36.0); Mean Corpuscular Hemoglobin 31.7 pg (28.0-34.0); Mean Corpuscular Volume 95.2 fL (80-94); Mean Platelet Volume 8.8 fL (7.4-10.4); Monocytes # 0.3 10^3/uL (0.2-0.9); Monocytes % 7.5 %; Neutrophils # 3.76 10^3/uL (1.8-7.7); Neutrophils % 82.8 %; Nucleated Red Blood Cells % 0.4 %; Platelet Count 82 10^3/cmm (130-400); Red Blood Count 2.49 10^6/uL (4.1-5.3); Red Cell Distribution Width 16.1 % (12.1-15.1); White Blood Count 4.5 10^3/uL (4.0-10.0)
[2020-04-02 09:11] VITALS: PULSE 67; RESP 18; TEMP 36.7; O2SAT 97; BMI 34.9
[2020-04-02 09:26] LABS: Alanine Aminotransferase 8 U/L (0-41); Albumin Level 3.4 g/dL (3.5-5.2); Alkaline Phosphatase 98 IU/L (40-130); Anion Gap 21.5 (5-19); Aspartate Amino Transferase 11 U/L (0-40); Calcium 8.9 mg/dL (8.5-10.5); Carbon Dioxide 19 mmol/L (22-29); Chloride 81 mmol/L (98-107); Globulin 2.4 g/dL (1.3-4.6); Glucose 145 mg/dL (65-115); Lactate Dehydrogenase 202 U/L (135-225); Osmolality Calculated 271 mOsm/kg (285-295); Potassium 5.5 mmol/L (3.5-5.1); Total Bilirubin 0.3 mg/dL (0.15-1.2); Total Protein 5.8 g/dL (6.6-8.7)
[2020-04-02 10:09] LABS: Blood Urea Nitrogen 86 mg/dL (8-23); Sodium 116 mmol/L (136-145)
== END 2020-04-02 07:24 | disposition home or self-care (01) ==
PROVIDERS: PCP Family Medicine; Visit Provider Internal Medicine
DX: Z95.811 Presence of heart assist device (principal); Z79.01 Long term (current) use of anticoagulants; R18.8 Other ascites
CPT/HCPCS: 36415; 49083; 80053; 83615; 85025